=== PATIENT | male | born 1955 | race Hispanic/Latino ===

== ENCOUNTER 2020-07-17 07:17 | Day surgery (SDC) | payer OTHER ==
[2020-07-17] MEDS ORDERED: Ringers Lactate 1,000 ML IV ONE (08:14)
[2020-07-17] MEDS ORDERED: LIDOCAINE 1% MPF 30 ML VIAL ONE (08:33)
[2020-07-17] MEDS ORDERED: propofoL 200 MG/20 ML VIAL IV ONE (08:33)
[2020-07-17] MEDS ORDERED: GLYCOPYRROLATE 0.2 MG/ML SYR ONE (08:33)
--- NOTE | 2020-07-17 08:50 | ENDO RPT ---
[address], [address] COLONOSCOPY PROCEDURE REPORT EXAM DATE: 07/17/2020 PATIENT NAME: Obie Martínez MR #: [id number] BIRTHDATE: 1955 ATTENDING: Jeff Purcell MD STATUS: outpatient STREET CONTRACTOR: Kenn George CST and Antonia Morris RN INDICATIONS: The patient is a 64 yr old Male here for a colonoscopy due to colon cancer screening PROCEDURE PERFORMED: Colonoscopy MEDICATIONS: Per Anesthesia. ESTIMATED BLOOD LOSS: None CONSENT: The patient understands the risks and benefits of the procedure and understands that these risks include, but are not limited to: sedation, allergic reaction, infection, perforation and/or bleeding. Alternative means of evaluation and treatment include, among others: physical exam, x-rays, and/or surgical intervention. The patient elects to proceed with this endoscopic procedure. DESCRIPTION OF PROCEDURE: During intra-op preparation period all mechanical medical equipment was checked for proper function. Hand hygiene and appropriate measures for infection prevention was taken. Procedure, possible complications, alternatives including, but not limited to possibility of bleeding, perforation, tear, infection, sepsis, need for surgery, need for blood transfusion, were explained to the patient. After the risks, benefits and alternatives of the procedure were thoroughly explained, Informed consent was verified, confirmed and timeout was successfully executed by the treatment team. The patient was placed in the left lateral position. A digital rectal exam was performed and revealed external hemorrhoids. After appropriate level of anesthesia, the scope was passed. The EC-[id number] ([id number]) endoscope was introduced through the anus and advanced to the cecum, which was identified by transillumination from the light source, the appendix, and the ileocecal valve. The quality of the prep was fair. The instrument was then slowly withdrawn as the colon was fully examined. Scope withdrawal time was . COLON FINDINGS: Diverticula was found in the descending colon. The opening was medium sized. Retroflexed views revealed no abnormalities and Retroflexed views revealed small hemorrhoids. The scope was then completely withdrawn from the patient and the procedure terminated. ADVERSE EVENTS: There were no complications. IMPRESSIONS: 1. Diverticula in the descending colon 2. External hemorrhoids 3. Internal hemorrhoids RECOMMENDATIONS: 1. follow-up: office 1 week(s) 2. no seeds in diet RECALL: Return in 5-10 year(s) for Colonoscopy. Jeff Purcell MD eSigned: Jeff Purcell MD 07/17/2020 8:49 AM cc: Mac Mcdonald M.D. CPT CODES: ICD9 CODES: PATIENT NAME: Obie Martínez MR#: [id number]
[2020-07-17 09:54] VITALS: TEMP 98.6
[2020-07-17 09:56] VITALS: BP 125/75; O2SAT 97
== END 2020-07-17 09:18 | disposition home or self-care (01) ==
LOC: OR 07:17
PROVIDERS: ATTEND Surgery
PROC: 0DJD8ZZ Inspection of Lower Intestinal Tract, Via Natural or Artificial Opening Endoscopic (ICD-10-PCS; principal; 2020-07-17 08:30)
DX: R10.30 Lower abdominal pain, unspecified (principal); R19.4 Change in bowel habit; K40.20 Bilateral inguinal hernia, without obstruction or gangrene, not specified as recurrent; K64.4 Residual hemorrhoidal skin tags; K64.8 Other hemorrhoids; K57.90 Diverticulosis of intestine, part unspecified, without perforation or abscess without bleeding; E11.9 Type 2 diabetes mellitus without complications; I10 Essential (primary) hypertension; E78.00 Pure hypercholesterolemia, unspecified; I51.9 Heart disease, unspecified; N40.0 Benign prostatic hyperplasia without lower urinary tract symptoms; Z20.822 Contact with and (suspected) exposure to COVID-19
CPT/HCPCS: 45378; U0003; J2704; J7120

== ENCOUNTER 2020-08-23 06:24 | Day surgery (SDC) | payer OTHER ==
[2020-08-21 15:12] LABS: Absolute Lymphocytes (CBC) 2.6 K/uL (0.7-4.9); Basophils % 0.5 % (0-1.3); Hematocrit 43.7 % (39.6-49.0); Lymphocytes % 25.4 % (15.3-44.8); MPV 10.5 fL (7.6-11.3)
[2020-08-21 15:35] LABS: Potassium 4.3 mmol/L (3.5-5.1)
--- NOTE | 2020-08-21 16:25 | RAD REPORT ---
EXAM DESCRIPTION: RAD - Chest Pa And Lat (2 Views) - 08/21/2020 3:14 pm CLINICAL HISTORY: preop, pending hernia surgery COMPARISON: Two chest June 2012 TECHNIQUE: Frontal and lateral views of the chest were obtained. FINDINGS: The lungs are clear of a focal process. No significant failure or volume overload seen. I nterstitial markings are prominent and have progressed slightly from comparison. In the absence of ac [place] symptoms this is likely a progression of chronic interstitial lung disease. Heart size is normal and central vasculature is within normal limits. No pleural effusion or pneumothorax seen. No acute bony finding noted. No aortic abnormality. IMPRESSION: No acute cardiopulmonary process. Increased prominence of the interstitial markings believed to be progression chronic interstitial jennifer g disease rather than an acute process.
[2020-08-23] MEDS ORDERED: Ringers Lactate 1,000 ML IV ONE (07:04)
[2020-08-23] MEDS ORDERED: LIDOCAINE 1% MPF 5 ML VIAL ONE (07:13)
[2020-08-23] MEDS ORDERED: MIDAZOLAM HCL 2 MG/2 ML INJ ONE (07:13)
[2020-08-23] MEDS ORDERED: FENTANYL CITR 250 MCG/5 ML ONE (07:13)
[2020-08-23] MEDS ORDERED: propofoL 200 MG/20 ML VIAL IV ONE (07:13)
[2020-08-23] MEDS ORDERED: dexAMETHasone 10 MG/ML VIAL ONE (07:13)
[2020-08-23] MEDS ORDERED: ROCURONIUM 50 MG/5 ML VIAL IV ONE (07:14)
[2020-08-23] MEDS: CEFAZOLIN/SWI 1gm 1 GM/10 ML SYR ONE ×2 (07:42→07:50)
[2020-08-23] MEDS ORDERED: Phenylephrine HCl 10 MG/ML 1 ML VIAL ONE (08:17)
--- NOTE | 2020-08-23 08:29 | P.BOP ---
Preoperative diagnosis: bilateral tender inguinal hernias Postoperative diagnosis: same Primary procedure: 1. Laparoscopic repair of Right inguinal hernia with mesh Secondary procedure: 2. Laparoscopic repair of left inguinal hernia with mesh Puller Out: ASH LEWIS (WELDER REPAIR) Estimated blood loss: <10cc Specimen: none Findings: as above Anesthesia: General Complications: None Implants: 3D mesh right and left Transferred to: Recovery Room Condition: Good
[2020-08-23] MEDS ORDERED: GLYCOPYRROLATE 0.2 MG/ML SYR ONE (08:44)
[2020-08-23] MEDS ORDERED: KETOROLAC 30 MG/ML INJ ONE (08:44)
[2020-08-23] MEDS ORDERED: NEOSTIGMINE 1 MG/ML -5 ML ONE (08:45)
[2020-08-23 09:11] VITALS: O2SAT 97
[2020-08-23] MEDS ORDERED: ONDANSETRON 4 MG/2 ML VIAL ONE (09:18)
[2020-08-23] MEDS ORDERED: CODEINE 30MG/APAP 300MG TAB PO ONE (09:50)
[2020-08-23] MEDS ORDERED: CODEINE 30MG/APAP 300MG TAB ONE (10:03)
[2020-08-23 10:05] VITALS: BP 128/67; TEMP 97.2
== END 2020-08-23 10:09 | disposition home or self-care (01) ==
LOC: OR 06:24
PROVIDERS: ATTEND Surgery
PROC: 0YUA4JZ Supplement Bilateral Inguinal Region with Synthetic Substitute, Percutaneous Endoscopic Approach (ICD-10-PCS; principal; 2020-08-23 07:30)
DX: K40.20 Bilateral inguinal hernia, without obstruction or gangrene, not specified as recurrent (principal); E11.9 Type 2 diabetes mellitus without complications; I10 Essential (primary) hypertension; E78.00 Pure hypercholesterolemia, unspecified; I51.9 Heart disease, unspecified; Z20.822 Contact with and (suspected) exposure to COVID-19
CPT/HCPCS: 85025; 80048; 36415; 71046; 49650; U0003; J2704; J2370; J2250; J3010; J1100; J2710; J0690; J7120; J2405

== ENCOUNTER 2021-09-04 09:46 | Emergency (ER) | payer OTHER ==
--- OUTSIDE RECORDS SUMMARY | 2021-09-04 09:50 | XMS REPORT | Continuity of Care Document ---
:1955 Author Organization [facility] t Address [address] [place] [address] Care Team Providers Name Role Phone ANNA EUGENIA MICHELLE Primary Care Physician Unavailable Dmitry Attending Clinician Unavailable JAMIE PATEL Attending Clinician Unavailable MANUEL Attending Clinician Unavailable Manuel CAMPBELL Attending Clinician Jamie Solo Attending Clinician FEDERICO FRANCO Attending Clinician Unavailable Payers Payer Name Policy Type Policy Number Effective Date Expiration Date Ale kumar CATHRYN/[facility] [id number] 2021 MEDICARE SILVER 00:00:00 PPO CSNP Problems Condition Condition Condition Status Onset Resolution Last Treating Co mments Source Name Details Category Date Date Treatment Clinician Date Calculus Calculus Disease Active 2019-03 Overview: Un bertha of kidney of kidney 2-07 Formattin i ty of 00:00: g of this [place] 00 note Medical might be Branch different from the original. Added automatic ally from request for surgery [id number] Epidermoid Epidermoid Disease Active 2019- U nivers cyst cyst 7-22 ity of 00:00: [place] 00 Medical Branch Morbid Morbid Disease Active 2018-03 Univers obesity obesity 0-08 [place]y of with [place] mass index mass index 00 Me dical of of Branch 40.0-49.9 40.0-49.9 Right Right Disease Active 2018-03 Overview: Lonnie duncan ureteral ureteral 0-07 Formattin ity of [place] 00:00: g of this [place] 00 note Medical might be Branch different from the original. Added automatic ally from request for surgery [id number] Allergies, Adverse Reactions, Alerts Allergy Allergy Status Severity Reaction(s) Onset Inactive Treating Comm ents Source Name Type Date Date Clinician NO KNOWN Drug Active Univers ALLERGIE Class ity of S [facility] Social History Social Habit Start Date Stop Date Quantity Comments Source History of Cigar Smoker University o f tobacco use [place] [facility] History SDOH University o f Alcohol Std [place] Medical Drinks Branch History SDOH University o f Alcohol Binge [place] Medic al Branch History SDOH University o f Alcohol Comment [place] Med ical Branch Exposure to 2021-07-24 2021-08-03 Not sure [facility] SARS-CoV-2 00:00:00 15:22:00 [facility] Branch Alcohol intake 2021-08-03 2021-08-03 Ex-drinker University 00:00:00 00:00:00 (finding) [facility] Tobacco use and 2020-02-14 2020-02-14 Never used Universit y of exposure 00:00:00 00:00:00 [facility] History SDOH 2019-09-30 2019-09-30 1 University o f Alcohol Frequency 00:00:00 00:00:00 [facility] [place] Sex Assigned At [birth year] Universit y of 00:00:00 00:00:00 [facility] Smoking Status Start Date Stop Date Source Former smoker 2020-02-14 00:00:00 2020-02-14 00:00:00 Universi ty of [facility] Medications Ordered Filled Start Stop Current Ordering Indication Dosage Frequency Signature Comments Components Source Medication Medication Date Date Medication? Clinician (SIG) Name Name aspirin 81 Yes 81mg Take 81 mg U nivers mg EC 08-03 by mouth ity of tablet 15:30: daily. [address] doxycycline 2021- 202- Yes [id number] 100mg Take 1 Univers monohydrate 08-03 [id number] tablet by ity of 100 mg 00:00: 04:59 mouth 2 [place] tablet 00 :00 (two) Medical times Branch daily for 7 days. potassium 2021-0 Yes [id number] 10mL Take 10 mL Univers citrate-cit 1-25 by mouth ity of suzi acid 00:00: after [place] 1,100-334 00 meals and Medic al mg/5 mL at Branch solution bedtime. finasteride 2021-0 Yes [id number] 5mg Take 1 Univers 5 mg tablet 1-25 tablet by ity of 00:00: mouth [place] 00 daily. Medical Branch tamsulosin 2021-0 Yes .4mg Take 1 Unive rs 0.4 mg 24 1-25 capsule by ity of hr capsule 00:00: mouth at [place] 00 bedtime. Medical Branch lisinopriL- 2021-0 Yes [id number] 1{tbl} Take 1 Univers hydrochloro 1-25 tablet by ity of thiazide 00:00: mouth [place] 20-12.5 mg 00 daily. Medical per tablet Branch potassium 2021-0 Yes [id number] 10mL Take 10 mL Univers citrate-cit 1-25 by mouth ity of suzi acid 00:00: after [place] 1,100-334 00 meals and Medic al mg/5 mL at Branch solution bedtime. finasteride 2021-0 Yes [id number] 5mg Take 1 Univers 5 mg tablet 1-25 tablet by ity of 00:00: mouth [place] 00 daily. Medical Branch tamsulosin 2021-0 Yes .4mg Take 1 Unive rs 0.4 mg 24 1-25 capsule by ity of hr capsule 00:00: mouth at [place] 00 bedtime. Medical Branch lisinopriL- 2021-0 Yes [id number] 1{tbl} Take 1 Univers hydrochloro 1-25 tablet by ity of thiazide 00:00: mouth [place] 20-12.5 mg 00 daily. Medical per tablet Branch potassium 2021-0 Yes [id number] 10mL Take 10 mL Univers citrate-cit 1-25 by mouth ity of suzi acid 00:00: after [place] 1,100-334 00 meals and Medic al mg/5 mL at Branch solution bedtime. finasteride 2021-0 Yes [id number] 5mg Take 1 Univers 5 mg tablet 1-25 tablet by ity of 00:00: mouth [place] 00 daily. Medical Branch tamsulosin 2021-0 Yes .4mg Take 1 Unive rs 0.4 mg 24 1-25 capsule by ity of hr capsule 00:00: mouth at [place] 00 bedtime. Medical Branch lisinopriL- 0 Yes [id number] 1{tbl} Take 1 Univers hydrochloro 1-25 tablet by ity of thiazide 00:00: mouth [place] 20-12.5 mg 00 daily. Medical per tablet Branch doxycycline 2020-03 Yes [id number] 100mg Take 1 Univers monohydrate 1-08 4107 tablet by ity of 100 mg 00:00: mouth 2 [place] tablet 00 (two) Medical times Branch daily. mupirocin 2 2020-03 Yes [id number] Apply to Univers % ointment 1-08 4107 area(s) 3 ity of 00:00: (three) [place] 00 times Medical daily. Branch doxycycline 2020-03 Yes [id number] 100mg Take 1 Univers monohydrate 1-08 4107 tablet by ity of 100 mg 00:00: mouth 2 [place] tablet 00 (two) Medical times [place] daily. mupirocin 2 2020-03 Yes [id number] Apply to Univers % ointment 1-08 4107 area(s) 3 ity of 00:00: (three) [place] 00 times Medical daily. Branch mupirocin 2 2020-03 Yes [id number] Apply to Univers % ointment 1-08 4107 area(s) 3 ity of 00:00: (three) [place] 00 times Medical daily. Branch doxycycline 2020-03- No [id number] 100mg Take 1 Univers monohydrate 1-08 05-27 4107 tablet by it y of 100 mg 00:00: 00:00 mouth 2 [place] tablet 00 :00 (two) Medical times [place] daily. potassium 2020-03- No [id number] 10mL Take 10 mL Univers citrate-cit 0-14 -25 by mouth ity of suzi acid 00:00: 00:00 after [place] 1,100-334 00 :00 meals and Medic al mg/5 mL at [facility] bedtime. potassium 2020-03- No [id number] 10mL Take 10 mL Univers citrate-cit 0-14 -25 by mouth ity of suzi acid 00:00: 00:00 after [place] 1,100-334 00 :00 meals and Medic al mg/5 mL at Branch solution bedtime. tamsulosin 2021- No [id number] .4mg Take 1 Univers 0.4 mg 24 09-12 capsule by ity of hr capsule 00:00: 00:00 mouth at [place] 00 :00 bedtime. Medical Branch tamsulosin 2021- No [id number] .4mg Take 1 Univers 0.4 mg 09-12 capsule by ity of hr capsule 00:00: 00:00 [place] 00 :00 bedtime. [facility] aspirin 81 2019-03 Yes 81mg Take 81 mg U nivers mg EC 2-11 by mouth ity of tablet 14:15: daily. [address] aspirin 81 2019-03 Yes 81mg Take 81 mg U nivers mg EC 2-11 by mouth ity of tablet 14:15: daily. [address] bacitracin 2019-03 Yes [id number] Apply to Univers 500 2-11 affected ity of unit/gram 00:00: area(s) 2 [place] ointment 00 (two) Medical times Branch daily. ibuprofen 2019-03 Yes [id number] 600mg Take 1 U nivers 600 mg 2-11 tablet by ity of tablet 00:00: mouth [place] 00 every 6 Medical (six) Branch hours as needed for Pain (scale 4-6). bacitracin 2019- Yes [id number] Apply to Univers 500 2-11 affected ity of unit/gram 00:00: area(s) 2 [place] ointment 00 (two) Medical times Branch daily. ibuprofen 2019- Yes [id number] 600mg Take 1 U nivers 600 mg 2-11 tablet by ity of tablet 00:00: mouth [place] 00 every 6 Medical (six) Branch hours as needed for Pain (scale 4-6). bacitracin 2020- Yes [id number] Apply to Univers 500 2-11 affected ity of unit/gram 00:00: area(s) 2 [place] ointment 00 (two) Medical times Branch daily. ibuprofen 2019- Yes [id number] 600mg Take 1 U nivers 600 mg 2-11 tablet by ity of tablet 00:00: mouth [place] 00 every 6 Medical (six) Branch hours as needed for Pain (scale 4-6). acetaminoph 2019- Yes [id number] 1{tbl} Take 1 Un bertha en-codeine 1-27 tablet by ity of (TYLENOL-CO 00:00: mouth [place] DEINE #3) 00 every 6 Medical 300-30 mg (six) Branch tablet hours as needed for Pain (scale 4-6). Indication s: acute pain acetaminoph 2019- Yes [id number] 1{tbl} Take 1 Un bertha en-codeine 1-27 tablet by ity of (TYLENOL-CO 00:00: mouth [place] DEINE #3) 00 every 6 Medical 300-30 mg (six) Branch tablet hours as needed for Pain (scale 4-6). Indication s: acute pain acetaminoph 2019- Yes [id number] 1{tbl} Take 1 Un bertha en-codeine 1-27 tablet by ity of (TYLENOL-CO 00:00: mouth [place] DEINE #3) 00 every 6 Medical 300-30 mg (six) Branch tablet hours as needed for Pain (scale 4-6). Indication s: acute pain FINASTERIDE 2019-03- No [id number] TAKE 1 Univers 5 mg tablet 0-23 01-25 TABLET BY it y of 00:00: 00:00 MOUTH [place] 00 :00 EVERY DAY Medical Branch FINASTERIDE 2019-03- No [id number] TAKE 1 Univers 5 mg tablet 0-23 01-25 TABLET BY it y of 00:00: 00:00 MOUTH [place] 00 :00 EVERY DAY Medical Branch meloxicam 2019-0 Yes 7.5mg Take 7.5 Uni vers 7.5 mg 9-28 mg by ity of tablet 00:00: mouth [place] 00 daily. Medical Branch meloxicam 2019-0 Yes 7.5mg Take 7.5 Uni vers 7.5 mg 9-28 mg by ity of tablet 00:00: mouth [place] 00 daily. Medical Branch meloxicam 2020-0 Yes 7.5mg Take 7.5 Uni vers 7.5 mg 9-28 mg by ity of tablet 00:00: mouth [place] 00 daily. Medical Branch ibuprofen 2019-0 Yes [id number] 600mg Take 1 Univers 600 mg 7-30 tablet by ity of tablet 00:00: mouth [place] 00 every 6 Medical (six) Branch hours as needed for Pain (scale 1-3). ibuprofen 2019- Yes [id number] 600mg Take 1 Univers 600 mg 7-30 tablet by ity of tablet 00:00: mouth [place] 00 every 6 Medical (six) Branch hours as needed for Pain (scale 1-3). ibuprofen 2020-0 Yes [id number] 600mg Take 1 Univers 600 mg 7-30 tablet by ity of tablet 00:00: mouth [place] 00 every 6 Medical (six) Branch hours as needed for Pain (scale 1-3). mupirocin 2 2019- Yes [id number] Apply to Univers % ointment 7-22 area(s) 3 ity of 00:00: (three) [place] 00 times Medical daily. Branch mupirocin 2 2019-0 Yes [id number] Apply to Univers % ointment 7-22 area(s) 3 ity of 00:00: (three) [place] 00 times Medical daily. Branch mupirocin 2 2019- Yes [id number] Apply to Univers % ointment 7-22 area(s) 3 ity of 00:00: (three) [place] 00 times Medical daily. Branch Potassium 2021- No [id number] 15meq Take 15 Univers Citrate 15 7-08 01-25 mEq by ity of mEq TbSR 00:00: 00:00 mouth 2 [place] 00 :00 (two) Medical times Branch daily. Potassium 2021- No [id number] 15meq Take 15 Univers Citrate 15 7-08 01-25 mEq by ity of mEq TbSR 00:00: 00:00 mouth 2 [place] 00 :00 (two) Medical times Branch daily. lisinopril- 2018-03- No [id number] 1{tbl} Take 1 Univers hydrochloro 2-03 01-25 tablet by it y of thiazide 00:00: 00:00 mouth [place] 20-12.5 mg 00 :00 daily. Medical per tablet Branch lisinopril- 2018-03- No [id number] 1{tbl} Take 1 Univers hydrochloro 2-03 01-25 tablet by it y of thiazide 00:00: 00:00 mouth [place] 20-12.5 mg 00 :00 daily. Medical per tablet Branch Vital Signs Vital Name Observation Time Observation Value Comments Source Systolic blood 2021-08-03 20:31:00 151 mm[Hg] Univer sity of pressure [facility] Diastolic blood 2021-08-03 20:31:00 91 mm[Hg] Unive rsity of pressure [facility] Heart rate 2021-08-03 20:31:00 88 /min Universi ty of [facility] Oxygen saturation in 2021-08-03 20:31:00 96 /min [facility] Arterial blood by [facility] Pulse oximetry Branch Body height 2021-08-03 20:30:00 165.1 cm Universi ty of [facility] Body weight 2021-08-03 20:30:00 105.552 kg Universi ty of [facility] BMI 2021-08-03 20:30:00 38.72 kg/m2 Universi ty of [facility] Systolic blood 2021-04-03 17:05:00 190 mm[Hg] Univer sity of pressure [facility] Diastolic blood 2021-04-03 17:05:00 78 mm[Hg] Unive rsity of [facility] Heart rate 2021-04-03 17:05:00 90 /min Universi ty of [facility] Body temperature 2021-04-03 17:04:00 36.67 Traci Univ ersity of [facility] Body height 2021-04-03 17:04:00 165.1 cm Universi ty of [facility] Body weight 2021-04-03 17:04:00 109.589 kg Universi ty of [facility] BMI 2021-04-03 17:04:00 40.20 kg/m2 Universi ty [facility] Procedures This patient has no known procedures. Encounters Start End Encounter Admission Attending Care Care Encounter Source Date/Time Date/Time Type Type Clinicians Facility Department ID 2021-05-31 Outpatient [facility] [id number] Common 16:32:01 [facility] 2021-05-14 Outpatient Dmitry STMICKY [facility] [id number] Common 10:45:04 Ofe [facility] 2021-04-04 Outpatient Ofe Leon [facility] [id number] Common 11:59:56 [id number] [facility] 2021-04-04 Outpatient Ofe Leon [facility] [id number] Common 11:49:40 [id number] [facility] 2022-01-01 2022-01-01 [facility] [id number] Univers 11:30:00 11:30:00 KAUSHIK [id number] [facility] [place] [facility] 2021-08-03 2021-08-03 [facility] [id number] Univers 15:20:00 15:43:58 [facility] o f [facility] 2021-08-03 2021-08-03 [facility] [id number] Univers 15:20:00 15:43:58 Care [facility] [id number] i sharon pringle [place] [id number] [place] as LAURA?BLEA [id number] Me [address] MEDICAL OFFICE BUILDING 2021-08-03 2021-08-03 Outpatient R [facility] [id number] Univers 15:20:00 15:20:00 [id number] [facility] [place] [facility] 2021-06-21 2021-06-21 ambulatory STLMLC STLMLC [id number] Common 00:00:00 00:00:00 [facility] 2021-06-14 2021-06-14 ambulatory STLMLC STLMLC [id number] Common 00:00:00 00:00:00 [facility] 2021-06-07 2021-06-07 ambulatory STLMLC STLMLC [id number] Common 00:00:00 00:00:00 [facility] 2021-05-29 2021-05-29 ambulatory STLMLC STLMLC [id number] Common 00:00:00 00:00:00 [facility] 2021-05-24 2021-05-24 ambulatory STLMLC STLMLC [id number] Common 00:00:00 00:00:00 [facility] 2021-05-14 2021-05-14 ambulatory STLMLC STLMLC [id number] Common 00:00:00 00:00:00 [facility] 2021-04-03 2021-04-03 Office LUIS FERNANDO Patel [id number] Univers 11:30:00 12:00:00 Visit Kaushik Andersen [facility] [id number] ity [facility] [id number] Nicki duncan [id number] [address] 2021-04-03 2021-04-03 [facility] [id number] Univers 11:30:00 11:30:[address] [facility] 2021-03-20 2021-03-20 [facility] [id number] Univers 13:30:00 13:30:[address] [facility] 2020-06-26 2020-06-26 Outpatient STLMLC STLMLC [id number] Common 00:00:00 00:00:00 [facility] 2020-03-22 2020-03-22 [facility] [id number] Univers 13:45:00 14:16:27 OLIVIA [facility] [place] [facility] 2020-01-25 2020-01-25 Outpatient STLMLC STLMLC [id number] Common 00:00:00 00:00:00 [facility] 2020-01-18 2020-01-18 Outpatient STLMLC STLMLC [id number] Common 00:00:00 00:00:00 [facility] 2020-01-11 2020-01-11 Outpatient STLMLC STLMLC [id number] Common 00:00:00 00:00:00 [facility] 2019-12-17 2019-12-17 Outpatient STLMLC STLMLC [id number] Common 00:00:00 00:00:00 [facility] 2019-12-07 2019-12-07 Outpatient STLMLC STLMLC [id number] Common 00:00:00 00:00:00 [facility] 2019-12-06 2019-12-06 Outpatient STLMLC STLMLC [id number] Common 00:00:00 00:00:00 [facility] Results This patient has no known results.
[2021-09-04] MEDS ORDERED: HYDROCODONE/APAP 10/325 TAB ONE (11:52)
--- NOTE | 2021-09-04 12:24 | RAD REPORT ---
EXAM DESCRIPTION: US - Extrem Venous W Compress Fan - 09/04/2021 12:11 pm CLINICAL HISTORY: lower extremity swelling COMPARISON: None. TECHNIQUE: Real-time sonographic evaluation of the bilateral lower extremity common femoral, superfi cial femoral, popliteal and posterior tibial veins was performed. FINDINGS: Normal compressibility, flow augmentation, phasic flow and spontaneous flow are identified in the left and right lower extremity common femoral, superficial femoral, popliteal and posterior t ibial veins. No intraluminal filling defects seen. IMPRESSION: No DVT in either lower extremity.
--- NOTE | 2021-09-04 13:25 | RAD REPORT ---
EXAM DESCRIPTION: RAD - Knee Right 3 View - 09/04/2021 1:14 pm CLINICAL HISTORY: PAIN COMPARISON: No comparisons FINDINGS: Moderate to severe osteoarthritis of the medial joint compartment is noted with near bone- on-bone. No fracture or dislocation. Small suprapatellar joint effusion.
--- NOTE | 2021-09-04 13:26 | RAD REPORT ---
EXAM DESCRIPTION: RAD - Knee Left 3 View - 09/04/2021 1:14 pm CLINICAL HISTORY: PAIN COMPARISON: No comparisons FINDINGS: Moderate tricompartmental osteoarthritis is seen, greatest involving the medial compartmen t. Small suprapatellar joint effusion. No fracture or dislocation. No aggressive bone lesion. IMPRESSION: Moderate medial compartment osteoarthritis.
--- NOTE | 2021-09-04 13:29 | ER ---
Nurse's Notes [facility] Name: Obie Martínez Age: 65 yrs Sex: Male : 1955 Arrival Date: 09/04/2021 Time: 09:50 Bed 10 Private MD: Diagnosis: Unspecified osteoarthritis, unspecified site-right and left knee Presentation: 09/04 10:25 Chief complaint: Patient states: Bilateral knee pain x 5 years that has gotten worse ss over the past few days. Pt sees Dr. Ramon for his knee pain and gives him injections that help for a few days and was also told that he knee bilateral knee replacement. Coronavirus screen: Client denies travel out of the [place] in the last 14 days. Ebola Screen: Patient denies exposure to infectious person. Patient denies travel to an Ebola-affected area in the 21 days before illness onset. Initial Sepsis Screen: Does the patient meet any 2 criteria? No. Patient's initial sepsis screen is negative. Does the patient have a suspected source of infection? No. Patient's initial sepsis screen is negative. Risk Assessment: Do you want to hurt yourself or someone else? Patient reports no desire to harm self or others. Onset of symptoms is unknown. 10:25 Method Of Arrival: Ambulatory ss 10:25 Acuity: SUKH 5 ss Historical: - Allergies: 10:27 No Known Allergies; ss - PMHx: 10:27 Hypertensive disorder; enlarged prostate; Kidney stone; ss - Immunization history:: Adult Immunizations up to date. - Social history:: Smoking status: Patient denies any tobacco usage or history of. Screenin:25 Abuse screen: Denies threats or abuse. Denies injuries from another. Nutritional ss screening: No deficits noted. Tuberculosis screening: Never had TB. Fall Risk None identified. Assessment: 10:25 General: Appears in no apparent distress. comfortable, Behavior is calm, cooperative, ss Denies fever, feeling ill, fatigue, chills. Pain: Complains of pain in Bilateral knee pain Pain currently is 10 out of 10 on a pain scale. Quality of pain is described as aching. Neuro: Sandoval Agitation-Sedation Scale (RASS): 0 - Alert and Calm Level of Consciousness is awake, alert, obeys commands, Oriented to person, place, time, situation. Cardiovascular: Pulses are palpable in right posterior tibial artery and left posterior tibial artery. Respiratory: Airway is patent Respiratory effort is even, unlabored, Respiratory pattern is regular, symmetrical, Denies cough, shortness of breath. Derm: Skin is pink, warm \T\ dry. normal. 11:30 Reassessment: Patient appears in no apparent distress at this time. Patient and/or ss family updated on plan of care and expected duration. Pain level reassessed. Patient is alert, oriented x 3, equal unlabored respirations, skin warm/dry/pink. 13:59 Reassessment: Patient appears in no apparent distress at this time. Pt up for ss discharge. HYUN Crain states that he still needs to speak with the patient prior to discharge. Vital Signs: 10:25 BP 148 / 81; Pulse 68; Resp 16; Temp 97.8(TE); Pulse Ox 100% on R/A; Weight 108.86 kg; ss Height 5 ft. 5 in. (165.10 cm); Pain 10/10; 10:25 Body Mass Index 39.94 (108.86 kg, 165.10 cm) ss ED Course: 09:50 Patient arrived in ED. rg4 10:25 Patient has correct armband on for positive identification. ss 10:27 Triage completed. ss 10:27 Arm band placed on right wrist. ss 10:30 Paras Phillips NP is PHCP. pm1 10:30 Warren Nelson MD is Attending Physician. pm1 11:37 Natalya Ochoa, JAMA is Primary Nurse. ss 12:11 Extrem Venous W Compression Fan US In Process Unspecified. EDMS 13:16 Knee Left 3 View XRAY In Process Unspecified. EDMS 13:16 Knee Right 3 View XRAY In Process Unspecified. EDMS 13:28 Alex Ramon MD is Referral Physician. pm1 14:44 No provider procedures requiring assistance completed. Patient did not have IV access ss during this emergency room visit. Administered Medications: 11:50 Drug: Hepler (HYDROcodone-acetaminophen) 10 mg-325 mg 1 tabs Route: PO; ss 13:58 Follow up: Response: No adverse reaction ss Medication: 10:25 VIS not applicable for this client. ss Outcome: 13:28 Discharge ordered by . pm1 14:44 Discharged to home ambulatory. ss 14:44 Condition: good 14:44 Discharge instructions given to patient, family, Instructed on discharge instructions, follow up and referral plans. medication usage, Demonstrated understanding of instructions, follow-up care, medications, Prescriptions given X 1. 14:46 Patient left the ED. Signatures: Dispatcher [employer] EDNatalya Cho RN RN Paras Lerner, ETCH OPERATOR [employer]IC[employer]AFERS ETCH OPERATOR [employer] pm1 Thea Ferreira rg4
--- NOTE | 2021-09-04 13:29 | EDPHYS ---
Physician Documentation [facility] Name: Obie Martínez Age: 65 yrs Sex: Male : 1955 Arrival Date: 09/04/2021 Time: 09:50 Bed 10 Private MD: ED Physician Warren Nelson HPI: 09/04 11:50 This 65 yrs old Male presents to ER via Ambulatory with complaints of Knee pm1 Pain. 11:50 The patient presents with pain, that is chronic. The complaints affect the right knee pm1 and left knee. Context: the patient can fully bear weight, the patient is able to ambulate. Onset: The symptoms/episode began/occurred and became worse 5 day(s) ago. Modifying factors: The symptoms are alleviated by elevating leg, the symptoms are aggravated by movement, weight bearing, bending knee. Associated signs and symptoms: Pertinent positives: calf tenderness, swelling, Pertinent negatives fever, numbness, tingling. Treatment prior to arrival includes: no previous treatment. Severity of symptoms: in the emergency department the symptoms are actually worse. The patient has not experienced similar symptoms in the past. The patient has not recently seen a physician. Historical: - Allergies: 10:27 No Known Allergies; ss - PMHx: 10:27 Hypertensive disorder; enlarged prostate; Kidney stone; ss - Immunization history:: Adult Immunizations up to date. - Social history:: Smoking status: Patient denies any tobacco usage or history of. ROS: 11:50 Constitutional: Negative for fever, chills, and weight loss, Cardiovascular: Negative pm1 for chest pain, palpitations, and edema, Respiratory: Negative for shortness of breath, cough, wheezing, and pleuritic chest pain. 11:50 Skin: Negative for injury, rash, and discoloration, Neuro: Negative for headache, weakness, numbness, tingling, and seizure. 11:50 MS/extremity: Positive for pain, swelling, tenderness, of the right calf and left calf and right knee and left knee. 11:50 All other systems are negative. Exam: 11:50 Constitutional: This is a well developed, well nourished patient who is awake, alert, pm1 and in no acute distress. Head/Face: Normocephalic, atraumatic. 11:50 Skin: Warm, dry with normal turgor. Normal color with no rashes, no lesions, and no evidence of cellulitis. 11:50 Cardiovascular: Exam negative for acute changes, Rate: normal, Rhythm: regular, Pulses: no pulse deficits are appreciated, Edema: is not appreciated. 11:50 Respiratory: Exam negative for acute changes, respiratory distress, shortness of breath, Breath sounds: are clear throughout. 11:50 Abdomen/GI: Exam negative for acute changes, Inspection: abdomen appears normal, Palpation: abdomen is soft and non-tender, in all quadrants. 11:50 Musculoskeletal/extremity: Extremities: grossly normal except: noted in the right knee and left knee: swelling, tenderness, There is no evidence of decreased ROM, deformity, DVT Exam: no swelling, no tenderness, no erythema. 11:50 Neuro: Exam negative for acute changes, Orientation: is normal, Mentation: is normal, Motor: is normal, moves all fours. Vital Signs: 10:25 BP 148 / 81; Pulse 68; Resp 16; Temp 97.8(TE); Pulse Ox 100% on R/A; Weight 108.86 kg; ss Height 5 ft. 5 in. (165.10 cm); Pain 10/10; 10:25 Body Mass Index 39.94 (108.86 kg, 165.10 cm) ss MDM: 10:33 Patient medically screened. pm1 13:27 Data reviewed: vital signs. Data interpreted: Pulse oximetry: on room air is 100 %. pm1 Interpretation: normal. Counseling: I had a detailed discussion with the patient and/or guardian regarding: the historical points, exam findings, and any diagnostic results supporting the discharge/admit diagnosis, radiology results, the need for outpatient follow up, to return to the emergency department if symptoms worsen or persist or if there are any questions or concerns that arise at home. 09/04 11:08 Order name: Knee Left 3 View XRAY; Complete Time: 13:26 pm1 09/04 11:08 Order name: Knee Right 3 View XRAY; Complete Time: 13:26 pm1 09/04 11:08 Order name: Extrem Venous W Compression Fan US; Complete Time: 13:09 pm1 Administered Medications: 11:50 Drug: Salol (HYDROcodone-acetaminophen) 10 mg-325 mg 1 tabs Route: PO; ss 13:58 Follow up: Response: No adverse reaction ss Disposition: 18:02 Co-signature as Attending Physician, Warren Nelson MD. rn Disposition Summary: 09/04/21 13:28 Discharge Ordered Location: Home pm1 Problem: new pm1 Symptoms: have improved pm1 Condition: Stable pm1 Diagnosis - Unspecified osteoarthritis, unspecified site - right and left knee pm1 Followup: pm1 - With: Emergency Department - When: As needed - Reason: Worsening of condition Followup: pm1 - With: Private Physician - When: 2 - 3 days - Reason: Recheck today's complaints, Continuance of care, Re-evaluation by your physician Followup: pm1 - With: Alex Ramon MD - When: 2 - 3 days - Reason: Recheck today's complaints, Continuance of care, Re-evaluation by your physician Discharge Instructions: - Discharge Summary Sheet pm1 - Arthritis pm1 - Osteoarthritis pm1 Forms: - Medication Reconciliation Form pm1 - Thank You Letter pm1 - Antibiotic Education pm1 - Prescription Opioid Use pm1 Prescriptions: - Tramadol 50 mg Oral Tablet - take 1 tablet by ORAL route every 8 hours as needed; 12 tablet; Refills: 0, pm1 Product Selection Permitted Signatures: Dispatcher [employer] EDWarren Crane MD MD rn Natalya Ochoa RN RN Paras Lerner NP DISPLAY ARTIST pm1
[2021-09-04 15:43] VITALS: BP 148/81; TEMP 97.8; O2SAT 100
== END 2021-09-04 14:46 | disposition home or self-care (01) ==
LOC: ER 09:46
DX: M17.0 Bilateral primary osteoarthritis of knee (principal); I10 Essential (primary) hypertension
CPT/HCPCS: 93970

== ENCOUNTER 2022-02-20 05:50 | Observation (INO) | payer OTHER ==
[2022-02-11 12:42] LABS: Absolute Lymphocytes (CBC) 2.1 K/uL (0.7-4.9); Hematocrit 44.7 % (39.6-49.0); Lymphocytes % 30.8 % (15.3-44.8); MCV 88.1 fL (80-100); MPV 10.4 fL (7.6-11.3); Protime INR 0.92; RBC Red Blood Cell Count 5.08 M/uL (4.33-5.43)
[2022-02-11 12:47] LABS: Potassium 3.8 mmol/L (3.5-5.1)
--- NOTE | 2022-02-11 13:09 | RAD REPORT ---
EXAM DESCRIPTION: RAD - Chest Pa And Lat (2 Views) - 02/11/2022 12:06 pm CLINICAL HISTORY: Pre op pending knee arthroplasty COMPARISON: Two view chest 08/21/2020 TECHNIQUE: Frontal and lateral views of the chest were obtained. FINDINGS: The lungs are clear of a peripheral mass, consolidation failure finding. Interstitial celia ings are prominent but not clearly different from the 2020 study. No hilar mass or lymphadenopathy identifiable. Heart size is normal and central vasculature is with in normal limits. No pleural effusion or pneumothorax seen. No acute bony finding noted. No aortic abnormality. IMPRESSION: No acute cardiopulmonary process. Above detailed findings are stable from prior imaging.
--- NOTE | 2022-02-11 13:43 | EKG ---
Test Date: 2022-02-11 Test Time: 11:12:23 Oncology Nurse Navigator: CONSTANZA MEASUREMENT RESULTS: Intervals: Rate: 63 MD: 190 QRSD: 144 QT: 426 QTc: 435 [place]: P: 74 MD: 190 QRS: 85 T: 65 INTERPRETIVE STATEMENTS: Normal sinus rhythm Right bundle branch block Abnormal ECG Compared to ECG 06/26/2012 20:15:44 Right bundle-branch block now present Intraventricular conduction delay no longer present Electronically Signed On 02-11-22 13:43:00 COMMERCIAL FOOD INSTRUCTOR by Ross Adams
[2022-02-20] MEDS ORDERED: Ringers Lactate 1,000 ML IV ONE ×2 (06:16→09:17)
[2022-02-20] MEDS ORDERED: CEFAZOLIN SODIUM 2 GM/VIAL ONE (06:16)
[2022-02-20 06:25] LABS: SARS-CoV-2 Antigen Rapid Res Negative (Negative)
[2022-02-20] MEDS ORDERED: FENTANYL CITR 100 MCG/2 ML ONE (07:01)
[2022-02-20] MEDS ORDERED: LIDOCAINE 1% MPF 5 ML VIAL ONE (07:01)
[2022-02-20] MEDS ORDERED: dexAMETHasone 4 MG/ML VIAL ONE (07:02)
[2022-02-20] MEDS ORDERED: MIDAZOLAM HCL 2 MG/2 ML INJ ONE (07:02)
[2022-02-20] MEDS ORDERED: EPINEPHRINE/PF 1 MG/ML AMP ONE (07:06)
[2022-02-20] MEDS ORDERED: dexAMETHasone 10 MG/ML VIAL ONE ×2 (07:06→07:59)
[2022-02-20] MEDS ORDERED: BUPIVACAINE 0.25% PF 30 ML VIAL ONE (07:06)
[2022-02-20] MEDS ORDERED: HYDROMORPHONE HCL 1 MG/ML INJ ONE (07:50)
[2022-02-20] MEDS ORDERED: KETAMINE HCL 500 MG/5 ML VIAL ONE (07:59)
[2022-02-20] MEDS ORDERED: KETOROLAC 30 MG/ML INJ ONE (07:59)
[2022-02-20] MEDS ORDERED: LIDOCAINE 2% MPF 5 ML VIAL ONE (07:59)
[2022-02-20] MEDS ORDERED: propofoL 200 MG/20 ML VIAL IV ONE (07:59)
[2022-02-20] MEDS ORDERED: ONDANSETRON 4 MG/2 ML VIAL ONE (08:00)
[2022-02-20] MEDS ORDERED: TRANEXAMIC ACID 1,000 MG/10 ML VIAL IV ONE (08:28)
[2022-02-20] MEDS ORDERED: LABETALOL 20 MG/4ML SYRINGE IV ONE (10:38)
--- NOTE | 2022-02-20 11:11 | P.BOP ---
Preoperative diagnosis: left knee osteoarthritis Postoperative diagnosis: same Primary procedure: left total knee arthroplasty Embroidery Patternmaker: NONE,NONE Estimated blood loss: 50 cc Specimen: left knee bone remnants Findings: see dictation Anesthesia: General Complications: None Implants: [employer] Samm Persona 10 CR femur, G tibia w/ stem, 10 CR poly, 35 patella Fluids & blood products: per anesthesia record; TT: 93 mins @ 300 mmHg Transferred to: Recovery Room Condition: Good
[2022-02-20] MEDS ORDERED: ONDANSETRON 4 MG/2 ML VIAL IV PRN (11:12)
[2022-02-20] MEDS ORDERED: MORPHINE 2 MG/ML SYR IV PRN (11:12)
[2022-02-20] MEDS ORDERED: DOCUSATE NA 100 MG CAP PO PRN (11:12)
[2022-02-20] MEDS ORDERED: ACETAMINOPHEN 325 MG TABLET PO PRN (11:12)
[2022-02-20] MEDS ORDERED: TRAMADOL HCL 50 MG TAB PO PRN (11:15)
--- OUTSIDE RECORDS SUMMARY | 2022-02-20 11:41 | XMS REPORT | Continuity of Care Document ---
:1955 Author Organization [facility] t Address [address] [place] [address] Care Team Providers Name Role Phone Letty Willis Primary Care Physician [phone] Ofe Andres Attending Clinician Unavailable GORDO QUINTANA Attending Clinician Unavailable ALLYN WEBBER Attending Clinician Unavailable Gordo Quintana MD Attending Clinician [phone] ALMA ROSA BUCHANAN Attending Clinician Unavailable Alma Rosa Buchanan MD Attending Clinician Doctor Unassigned, [place] Attending Clinician Unavailable Allyn Solo Attending Clinician DYLAN JACKSON Attending Clinician Unavailable Dylan Camarena Attending Clinician DARRIUS BOSWELL Attending Clinician Unavailable Visit, [facility] Dermatology Nurse Attending Clinician Unavailable Madison Chiu MD Attending Clinician MADISON CHIU Attending Clinician Unavailable Michael Drake MD Attending Clinician [phone] Lexi Boswell MD, Darrius Abad Attending Clinician [facility]-Lab Attending Clinician Unavailable Salomón Mckeon MD Attending Clinician SALOMÓN MCKEON Attending Clinician Unavailable CAMILLA CHÁVEZ Attending Clinician Unavailable Camilla Chávez MD Attending Clinician Provider, [facility] Attending Clinician Unavailable John Pleitez Attending Clinician JOHN GALVAN Attending Clinician Unavailable Lab, [facility] Attending Clinician Unavailable Claribel Woods Attending Clinician CLARIBEL PARKINSON Attending Clinician Unavailable CHRISTIAN DUMONT Attending Clinician Unavailable Shyam LEE, Naila Carson Attending Clinician BECKY DOUGHERTY Attending Clinician Unavailable GORDO QUINTANA Admitting Clinician Unavailable SALOMÓN MCKEON Admitting Clinician Unavailable CHRISTIAN DUMONT Admitting Clinician Unavailable BECKY DOUGHERTY Admitting Clinician Unavailable Payers Payer Name Policy Type Policy Number Effective Date Expiration Date [facility] [id number] 2018 MEDICARE SILVER 00:00:00 Problems Condition Condition Condition Status Onset Resolution Last Treating Co mments Source Name Details Category Date Date Treatment Clinician Date Calculus Calculus Disease Active 2019-03 Overview: Un bertha of kidney of kidney 2-07 Formattin i ty of 00:00: g of this [place] note Medical might be Branch different from the original. Added automatic ally from request for surgery [id number] Epidermoid Epidermoid Disease Active U nivers cyst cyst 7-22 ity of 00:00: [place] 00 Medical Branch Morbid Morbid Disease Active 2018-03 Univers obesity obesity 0-08 [place]y of [place] mass index 00 Me dical of of Branch 40.0-49.9 40.0-49.9 Right Right Disease Active 2018-03 Overview: Univer s ureteral ureteral 0-07 Formattin ity of stone stone 00:00: g of this note Medical might be Branch different from the original. Added automatic ally from request for surgery [id number] Arthritis Problem Co mmon [id number] of left Spirit knee - [facility] [id number] Primary Problem Comm on osteoarthr Spirit itis of - [facility] right knee [facility] [id number] Primary Problem Comm on osteoarthr Spirit is of - [facility] left knee [facility] Allergies, Adverse Reactions, Alerts Allergy Allergy Status Severity Reaction(s) Onset Inactive Treating Comm ents Source Name Type Date Date Clinician NO KNOWN Drug Active Univers ALLERGIE Class ity of [facility] Social History Social Habit Start Date Stop Date Quantity Comments Source History SDOH University o f Alcohol Std [place] Medical Drinks Branch History SDOH University o f Alcohol Binge [place] Medic al Branch History [facility] University o f Alcohol Comment [place] Med ical Branch History of [facility] - Tobacco Use [facility] Sex Assigned At Common Sp cady - [facility] Exposure to 2021-12-17 2021-12-27 Not sure [facility] SARS-CoV-2 00:00:00 10:41:00 [facility] (event) Branch Alcohol intake 2021-12-27 2021-12-27 Ex-drinker University of 00:00:00 00:00:00 (finding) [facility] Tobacco use and 2021-11-28 2021-11-28 Smokeless tobacco Un iversity of exposure 00:00:00 00:00:00 non-user [facility] History SDAK 2019-09-30 2019-09-30 1 University o f Alcohol [facility]:00[facility] [place] Smoking Status Start Date Stop Date Source Never Smoker [facility] Ex-smoker 2021-11-28 00:00:00 2021-11-28 00:00:00 [facility] Medications Ordered Filled Start Stop Current Ordering Indication Dosage Frequency Signature Comments Components Source Medication Medication Date Date Medication? Clinician (SIG) Name Name Xarelto 10 Xarelto 10 2021-03 No 1{table QD Xarelto 10 MG MG 2-12 t} MG 00:00: 00 HYDROcodone HYDROcodone 2021-03 No 1{table HYDROcodon -Acetaminop -Acetaminop 2-12 t_as_ne e-Acetamin hen 7.5-325 hen 7.5-325 00:00: eded} ophen MG MG 00 7.5-325 MG ROSUVASTATI 2021-03 No N CALCIUM 5 1-21 MG TABS 00:00: 00 finasteride 2021-03 Yes [id number] 5mg Take 1 Univers 5 mg tablet 0-20 tablet by ity of 00:00: mouth in [place] the morning. Branch tamsulosin 2021-03 Yes [id number] .4mg Take 1 Univers 0.4 mg 24 0-20 capsule by ity of hr capsule 00:00: mouth at [place] 00 bedtime. Medical Branch finasteride 2021-03 Yes [id number] 5mg Take 1 Univers 5 mg tablet 0-20 tablet by ity of 00:00: mouth in [place] the morning. Branch tamsulosin 2021-03 Yes [id number] .4mg Take 1 Univers 0.4 mg 24 0-20 capsule by ity of hr capsule 00:00: mouth at [place] 00 bedtime. [facility] finasteride 2021-03 Yes [id number] 5mg Take 1 Univers 5 mg tablet 0-20 tablet by ity of 00:00: mouth in [place] the morning. Branch tamsulosin 2021-03 Yes [id number] .4mg Take 1 Univers 0.4 mg 24 0-20 capsule by ity of hr capsule 00:00: mouth at [place] 00 bedtime. [facility] Branch finasteride 2021-03 Yes [id number] 5mg Take 1 Univers 5 mg tablet 0-20 tablet by ity of 00:00: mouth in [place] the morning. Branch tamsulosin 2021-03 Yes [id number] .4mg Take 1 Univers 0.4 mg 24 0-20 capsule by ity of hr capsule 00:00: mouth at [place] 00 bedtime. [facility] Branch FINASTERIDE No 5 MG TABS 12-04 00:00: 00 TAKE 1 2021-0 No TABLET BY 9- MOUTH TWICE 00:00: A DAY 00 TAKE 1 2021-0 No TABLET BY 9-21 MOUTH TWICE 00:00: A DAY 00 TAMSULOSIN 2021-0 No HYDROCHLORI 8-01 DE 0.4 MG 00:00: CAPS 00 TAMSULOSIN 2021-0 No HYDROCHLORI 8-01 DE 0.4 MG 00:00: CAPS 00 &lt 2022-0 No 4 8-01 00:00: 00 finasteride 2021-0 Yes [id number] 5mg Take 1 Univers 5 mg tablet 7-14 tablet by ity of 00:00: mouth in [place] 00 the Medical morning. Branch finasteride 2021-0 Yes [id number] 5mg Take 1 Univers 5 mg tablet 7-14 tablet by ity of 00:00: mouth in [place] 00 the Medical morning. Branch finasteride 2021-0 Yes [id number] 5mg Take 1 Univers 5 mg tablet 7-14 tablet by ity of 00:00: mouth in [place] 00 the Medical morning. Branch finasteride 2021-0 Yes [id number] 5mg Take 1 Univers 5 mg tablet 7-14 tablet by ity of 00:00: mouth in [place] 00 the Medical morning. Branch finasteride 2021-0 Yes [id number] 5mg Take 1 Univers 5 mg tablet 7-14 tablet by ity of 00:00: mouth in [place] 00 the Medical morning. Branch finasteride 2021-0 Yes [id number] 5mg Take 1 Univers 5 mg tablet 7-14 tablet by ity of 00:00: mouth in [place] 00 the Medical morning. Branch finasteride 2021-0 Yes [id number] 5mg Take 1 Univers 5 mg tablet 7-14 tablet by ity of 00:00: mouth in [place] 00 the Medical morning. Branch finasteride 2021-0 Yes [id number] 5mg Take 1 Univers 5 mg tablet 7-14 tablet by ity of 00:00: mouth in [place] 00 the Medical morning. Branch finasteride 2021-0 Yes [id number] 5mg Take 1 Univers 5 mg tablet 7-14 tablet by ity of 00:00: mouth in [place] 00 the Medical morning. Branch finasteride 2021-0 2022- No [id number] 5mg Take 1 Univers 5 mg tablet 7-14 10-20 tablet by it y of 00:00: 00:00 mouth in [place] 00 :00 the Medical morning. Branch finasteride 2-0 2022- No [id number] 5mg Take 1 Univers 5 mg tablet 7-14 10-20 tablet by it y of 00:00: 00:00 mouth in [place] 00 :00 the Medical morning. Branch finasteride 2-0 2022- No [id number] 5mg Take 1 Univers 5 mg tablet 7-14 10-20 tablet by it y of 00:00: 00:00 mouth in [place] 00 :00 the Medical morning. Branch finasteride 2021- No [id number] 5mg Take 1 Univers 5 mg tablet 7-14 10-20 tablet by it y of 00:00: 00:00 mouth in [place] 00 :00 the Medical morning. Branch aspirin 81 2021-0 Yes 81mg Take 81 mg U nivers mg EC 5-27 by mouth ity of tablet 15:30: daily. [address] aspirin 81 2021-0 Yes 81mg Take 81 mg U nivers mg EC 5-27 by mouth ity of tablet 15:30: daily. [address] aspirin 81 2021-0 Yes 81mg Take 81 mg U nivers mg EC 5-27 by mouth ity of tablet 15:30: daily. [address] aspirin 81 2021-0 Yes 81mg Take 81 mg U nivers mg EC 5-27 by mouth ity of tablet 15:30: daily. [address] aspirin 81 2021-0 Yes 81mg Take 81 mg U nivers mg EC 5-27 by mouth ity of tablet 15:30: daily. [address] aspirin 81 2021-0 Yes 81mg Take 81 mg U nivers mg EC 5-27 by mouth ity of tablet 15:30: daily. [address] aspirin 81 2021-0 Yes 81mg Take 81 mg U nivers mg EC 5-27 by mouth ity of tablet 15:30: daily. [address] aspirin 81 2021-0 Yes 81mg Take 81 mg U nivers mg EC 5-27 by mouth ity of tablet 15:30: daily. [address] aspirin 81 2021-0 Yes 81mg Take 81 mg U nivers mg EC 5-27 by mouth ity of tablet 15:30: daily. [address] aspirin 81 2021-0 Yes 81mg Take 81 mg U nivers mg EC 5-27 by mouth ity of tablet 15:30: daily. [address] aspirin 81 2021-0 Yes 81mg Take 81 mg U nivers mg EC 5-27 by mouth ity of tablet 15:30: daily. [address] aspirin 81 2021-0 Yes 81mg Take 81 mg U nivers mg EC 5-27 by mouth ity of tablet 15:30: daily. [address] aspirin 81 2021-0 Yes 81mg Take 81 mg U nivers mg EC - by mouth ity of tablet 15:30: daily. [address] aspirin 81 2021-0 Yes 81mg Take 81 mg U nivers mg EC 08-03 by mouth ity of tablet 15:30: daily. [address] doxycycline 2021-0 202- No [id number] 100mg Take 1 Univers monohydrate 08-03 [id number] tablet by ity of 100 mg 00:00: 04:59 mouth 2 [place] tablet 00 :00 (two) Medical times [place] daily for 7 days. [place] 20 Hy[place]gan 20 2021-0 No 20mg C ommon mg mg - Spirit 00:00: - [facility] Hyalgan 20 [place] 20 2021-0 No 20mg C ommon mg mg 06-21 Spirit 00:00: - [facility] Hy[place] 20 [place] 20 2021-0 No 20mg C ommon mg mg 06-21 Spirit 00:00: - [facility] Hy[place] 20 [place] 20 2021-0 No 20mg C ommon mg mg 06-21 Spirit 00:00: - [facility] Hy[place] 20 [place] 20 2021-0 No 20mg C ommon mg mg 06-21 Spirit 00:00: - [facility] Hyal[place] 20 [place] 20 2021-0 No 20mg C ommon mg mg 06-21 Spirit 00:00: - [facility] Hy[place] 20 Hy[place] 20 2021-0 No 20mg C ommon mg mg 06-21 Spirit 00:00: - [facility] Hyalgan 20 Hyalgan 20 2021-0 No 20mg C ommon mg mg - Spirit 00:00: - [facility] Hyalgan 20 Hy[place] 20 2021-0 No 20mg C ommon mg mg - Spirit 00:00: - [facility] Hyalgan 20 Hy[place] 20 2021-0 No 20mg C ommon mg mg -14 Spirit 00:00: - [facility] 00 [facility] Hyalgan 20 Hyalgan 20 2021-0 No 20mg C ommon mg mg 06-21 Spirit 00:00: - [facility] Hyalgan 20 Hyalgan 20 2021-0 No 20mg C ommon mg mg 06-21 00:00: - [facility] Hyalgan 20 [place] 20 2021-0 No 20mg C ommon mg mg 06-21 00:00: - [facility] Hyalgan 20 Hy[place]gan 20 2021-0 No 20mg C ommon mg mg 06-21 00:00: - [facility] Hyalgan 20 Hyalgan 20 2021-0 No 20mg C ommon mg mg 06-14 00:00: - [facility] Hyalgan 20 Hyalgan 20 2021-0 No 20mg C ommon mg mg 06-14 00:00: - [facility] Hyalgan 20 Hyalgan 20 2021-0 No 20mg C ommon mg mg 06-14 00:00: - [facility] Hyalgan 20 Hyalgan 20 2021-0 No 20mg C ommon mg mg 06-14 00:00: - [facility] Hyalgan 20 Hyalgan 20 2021-0 No 20mg C ommon mg mg 06-14 00:00: - [facility] Hyalgan 20 Hyalgan 20 2021-0 No 20mg C ommon mg mg 06-14 Spirit 00:00: - [facility] Hyalgan 20 Hyalgan 20 2021-0 No 20mg C ommon mg mg 06-14 Spirit 00:00: - [facility] Hyalgan 20 Hyalgan 20 2021-0 No 20mg C ommon mg mg 06-14 Spirit 00:00: - [facility] Hyalgan 20 Hyalgan 20 2021-0 No 20mg C ommon mg mg 06-14 Spirit 00:00: - [facility] Hyalgan 20 Hyalgan 20 2021-0 No 20mg C ommon mg mg 06-14 Spirit 00:00: - [facility] Hyalgan 20 Hyalgan 20 2021-0 No 20mg C ommon mg mg 06-14 Spirit 00:00: - [facility] Hyalgan 20 Hyalgan 20 2021-0 No 20mg C ommon mg mg 06-14 Spirit 00:00: - [facility] Hyalgan 20 Hyalgan 20 2021-0 No 20mg C ommon mg mg 06-14 Spirit 00:00: - [facility] Hyalgan 20 Hyalgan 20 2021-0 No 20mg C ommon mg mg 06-14 Spirit 00:00: - [facility] Hyalgan 20 Hyalgan 20 2021-0 No 20mg C ommon mg mg 06-14 Spirit 00:00: - [facility] Hyalgan 20 Hyalgan 20 2021-0 No 20mg C ommon mg mg 06-14 Spirit 00:00: - [facility] Bupivicaine Bupivicaine 2021-0 No Common Rudolph Rudolph 3- Spirit 00:00: - [facility] Kenalog Kenalog 2021-0 No 40mg Common (Triamcinol (Triamcinol 3-31 S pirit one) one) 00:00: - [facility] 00 [facility] Bupivicaine Bupivicaine 2021-0 No Common Rudolph Rudolph 3-31 Spirit 00:00: - [facility] Hyalgan 20 Hyalgan 20 2021-0 No 20mg C ommon mg mg 06-07 Spirit 00:00: - [facility] Hyalgan 20 Hyalgan 20 2021-0 No 20mg C ommon mg mg 06-07 Spirit 00:00: - [facility] Kenalog Kenalog 2021-0 No 40mg Common (Triamcinol (Triamcinol 3-31 S pirit one) one) 00:00: - [facility] Bupivicaine Bupivicaine 2-0 No 2.5mg Common Rudolph Rudolph 3-31 Spirit 00:00: - [facility] Bupivicaine Bupivicaine 2-0 No 2.5mg Common Rudolph Rudolph 3-31 Spirit 00:00: - [facility] Kenalog Kenalog 2021-0 No 40mg Common (Triamcinol (Triamcinol 3-31 S pirit one) one) 00:00: - [facility] Hyalgan 20 Hyalgan 20 2021-0 No 20mg C ommon mg mg 3-31 Spirit 00:00: - CHI 00 [facility] Hyalgan 20 Hyalgan 20 2021-0 No 20mg C ommon mg mg 3-31 Spirit 00:00: - CHI 00 [facility] Kenalog Kenalog 2021-0 No 40mg Common (Triamcinol (Triamcinol 3-31 S pirit one) one) 00:00: - CHI 00 [facility] Bupivicaine Bupivicaine 2021-0 No 2.5mg Common Rudolph Rudolph 3-31 Spirit 00:00: - CHI 00 [facility] Kenalog Kenalog 2021-0 No 40mg Common (Triamcinol (Triamcinol 3-31 S pirit one) one) 00:00: - CHI 00 [facility] Hyalgan 20 Hyalgan 20 2021-0 No 20mg C ommon mg mg 3-31 Spirit 00:00: - CHI 00 [facility] Hyalgan 20 Hyalgan 20 2021-0 No 20mg C ommon mg mg 3-31 Spirit 00:00: - CHI 00 [facility] Kenalog Kenalog 2021-0 No 40mg Common (Triamcinol (Triamcinol 3-31 S pirit one) one) 00:00: - [facility]I 00 [facility] Bupivicaine Bupivicaine 2021-0 No 2.5mg Common Rudolph Rudolph 3-31 Spirit 00:00: - [facility]I 00 [facility] Bupivicaine Bupivicaine 2021-0 No 2.5mg Common Rudolph Rudolph 3-31 Spirit 00:00: - CHI 00 [facility] Kenalog Kenalog 2021-0 No 40mg Common (Triamcinol (Triamcinol 3-31 S pirit one) one) 00:00: - CHI 00 [facility] Hyalgan 20 Hyalgan 20 2021-0 No 20mg C ommon mg mg 3-31 Spirit 00:00: - CHI 00 [facility] Hyalgan 20 Hyalgan 20 2021-0 No 20mg C ommon mg mg 3-31 Spirit 00:00: - [facility]I 00 [facility] Kenalog Kenalog 2021-0 No 40mg Common (Triamcinol (Triamcinol 3-31 S pirit one) one) 00:00: - CHI 00 [facility] Bupivicaine Bupivicaine 2-0 No 2.5mg Common Rudolph Rudolph 3-31 Spirit 00:00: - CHI 00 [facility] Bupivicaine Bupivicaine 2-0 No 2.5mg Common Rudolph Rudolph 3-31 Spirit 00:00: - CHI 00 [facility] Kenalog Kenalog 2021-0 No 40mg Common (Triamcinol (Triamcinol 3-31 S pirit one) one) 00:00: - [facility]I 00 [facility] Hyalgan 20 Hyalgan 20 2021-0 No 20mg C ommon mg mg 3- Spirit 00:00: - CHI 00 [facility] Hyalgan 20 Hyalgan 20 2021-0 No 20mg C ommon mg mg 3-31 Spirit 00:00: - CHI 00 [facility] Kenalog Kenalog 2021-0 No 40mg Common (Triamcinol (Triamcinol 3-31 S pirit one) one) 00:00: - CHI 00 [facility] Bupivicaine Bupivicaine 2021-0 No 2.5mg Common Rudolph Rudolph 3-31 Spirit 00:00: - CHI 00 [facility] Bupivicaine Bupivicaine 2021-0 No 2.5mg Common Rudolph Rudolph 3-31 Spirit 00:00: - CHI 00 [facility] Kenalog Kenalog 2021-0 No 40mg Common (Triamcinol (Triamcinol 3-31 S pirit one) one) 00:00: - CHI 00 [facility] Hyalgan 20 Hyalgan 20 2021-0 No 20mg C ommon mg mg 3-31 Spirit 00:00: - [facility]I 00 [facility] Hyalgan 20 Hyalgan 20 2021-0 No 20mg C ommon mg mg 3-31 Spirit 00:00: - CHI 00 [facility] Kenalog Kenalog 2021-0 No 40mg Common (Triamcinol (Triamcinol 3-31 S pirit one) one) 00:00: - [facility]I 00 [facility] Bupivicaine Bupivicaine 2021-0 No 2.5mg Common Rudolph Rudolph 3-31 Spirit 00:00: - [facility] 00 [facility] Bupivicaine Bupivicaine 2021-0 No 2.5mg Common Rudolph Rudolph 3-31 Spirit 00:00: - CHI 00 [facility] Kenalog Kenalog 2021-0 No 40mg Common (Triamcinol (Triamcinol 3-31 S pirit one) one) 00:00: - [facility]I 00 [facility] Hyalgan 20 Hyalgan 20 2021-0 No 20mg C ommon mg mg 3-31 Spirit 00:00: - [facility]I 00 [facility] Hyalgan 20 Hyalgan 20 2021-0 No 20mg C ommon mg mg 3-31 Spirit 00:00: - [facility] 00 [facility] Kenalog Kenalog 2021-0 No 40mg Common (Triamcinol (Triamcinol 3-31 S pirit one) one) 00:00: - [facility] 00 [facility] Bupivicaine Bupivicaine 2021-0 No 2.5mg Common Rudolph Rudolph 3-31 Spirit 00:00: - [facility] 00 [facility] Bupivicaine Bupivicaine 2021-0 No 2.5mg Common Rudolph Rudolph 3-31 Spirit 00:00: - [facility] 00 [facility] Kenalog Kenalog 2021-0 No 40mg Common (Triamcinol (Triamcinol 3-31 S pirit one) one) 00:00: - [facility] 00 [facility] Hyalgan 20 Hyalgan 20 2021-0 No 20mg C ommon mg mg 3-31 Spirit 00:00: - [facility] 00 [facility] Hyalgan 20 Hyalgan 20 2021-0 No 20mg C ommon mg mg 3-31 Spirit 00:00: - [facility]I 00 [facility] Kenalog Kenalog 2021-0 No 40mg Common (Triamcinol (Triamcinol 3-31 S pirit one) one) 00:00: - [facility] 00 [facility] Bupivicaine Bupivicaine 2-0 No 2.5mg Common Rudolph Rudolph 3-31 Spirit 00:00: - [facility] 00 [facility] Bupivicaine Bupivicaine 2022-0 No 2.5mg Common Rudolph Rudolph 3-31 Spirit 00:00: - [facility]I 00 [facility] Kenalog Kenalog 2-0 No 40mg Common (Triamcinol (Triamcinol 3-31 S pirit one) one) 00:00: - CHI 00 [facility] Hyalgan 20 Hyalgan 20 2021-0 No 20mg C ommon mg mg 3- Spirit 00:00: - CHI 00 [facility] Hyalgan 20 Hyalgan 20 2021-0 No 20mg C ommon mg mg 3 Spirit 00:00: - [facility]I 00 [facility] Kenalog Kenalog 2-0 No 40mg Common (Triamcinol (Triamcinol 3-31 S pirit one) one) 00:00: - [facility] 00 [facility] Bupivicaine Bupivicaine 2-0 No 2.5mg Common Rudolph Rudolph 3-31 Spirit 00:00: - [facility] 00 [facility] Dose 2-0 No Unknown 3-08 00:00: 00 Dose 2022-0 No Unknown 3-08 00:00: 00 Dose 2022-0 No Unknown 3-08 00:00: 00 Dose 2022-0 No Unknown 3-08 00:00: 00 Dose 2-0 No Unknown 3-08 00:00: 00 Dose 2-0 No Unknown 3-08 00:00: 00 Dose 2-0 No Unknown 3-08 00:00: 00 Dose 2-0 No Unknown 3-08 00:00: 00 Dose 2-0 No Unknown 3-08 00:00: 00 Dose 2022-0 No Unknown 3-08 00:00: 00 Dose 2022-0 No Unknown 3-08 00:00: 00 Dose 2022-0 No Unknown 3-08 00:00: 00 Dose 2022-0 No Unknown 3-07 00:00: 00 Dose 2-0 No Unknown 3-07 00:00: 00 Dose 2-0 No Unknown 3-07 00:00: 00 Dose 2022-0 No Unknown 3-07 00:00: 00 Dose 2022-0 No Unknown 3-07 00:00: 00 Dose 2-0 No Unknown 3-07 00:00: 00 Dose 2022-0 No Unknown 3-07 00:00: 00 Dose 2022-0 No Unknown 3-07 00:00: 00 Dose 2022-0 No Unknown 3-07 00:00: 00 Dose 2022-0 No Unknown 3-07 00:00: 00 Dose 2022-0 No Unknown 3- 00:00: 00 Dose 2022-0 No Unknown 3- 00:00: 00 Dose 2022-0 No Unknown 3- 00:00: 00 Dose 2022-0 No Unknown 3- 00:00: 00 Dose 2022-0 No Unknown 3- 00:00: 00 Dose 2022-0 No Unknown 3-07 00:00: 00 Dose 2022-0 No Unknown 3-07 00:00: 00 Dose 2022-0 No Unknown 3-07 00:00: 00 potassium 2021-0 Yes [id number] 10mL Take 10 mL Univers citrate-cit 1-25 by mouth ity of suzi acid 00:00: after [place] 1,100-334 00 meals and Medic al mg/5 mL at Branch solution bedtime. finasteride 2021-0 Yes [id number] 5mg Take 1 Univers 5 mg tablet 1-25 tablet by ity of 00:00: mouth [place] 00 daily. Medical Branch tamsulosin 0 Yes .4mg Take 1 Unive rs 0.4 mg 24 1-25 capsule by ity of hr capsule 00:00: mouth at [place] 00 bedtime. Medical Branch lisinopriL- 0 Yes [id number] 1{tbl} Take 1 Univers hydrochloro 1-25 tablet by ity of thiazide 00:00: mouth [place] 20-12.5 mg 00 daily. Medical per tablet Branch potassium 2021-0 Yes [id number] 10mL Take 10 mL Univers citrate-cit 1-25 by mouth ity of suzi acid 00:00: after [place] 1,100-334 00 meals and Medic al mg/5 mL at Branch solution bedtime. finasteride 2021-0 Yes [id number] 5mg Take 1 Univers 5 mg tablet 1-25 tablet by ity of 00:00: mouth [place] 00 daily. Medical Branch tamsulosin 2021-0 Yes .4mg Take 1 Unive rs 0.4 mg 24 1-25 capsule by ity of hr capsule 00:00: mouth at [place] 00 bedtime. Medical Branch lisinopriL- 2022-0 Yes [id number] 1{tbl} Take 1 Univers hydrochloro 1-25 tablet by ity of thiazide 00:00: mouth [place] 20-12.5 mg 00 daily. Medical per tablet Branch potassium 2021-0 Yes [id number] 10mL Take 10 mL Univers citrate-cit 1-25 by mouth ity of suzi acid 00:00: after [place] 1,100-334 00 meals and Medic al mg/5 mL at Branch solution bedtime. finasteride 2021-0 Yes [id number] 5mg Take 1 Univers 5 mg tablet 1-25 tablet by ity of 00:00: mouth [place] 00 daily. Medical Branch tamsulosin 2021-0 Yes .4mg Take 1 Unive rs 0.4 mg 24 1-25 capsule by ity of hr capsule 00:00: mouth at [place] 00 bedtime. Medical Branch lisinopriL- 0 Yes [id number] 1{tbl} Take 1 Univers hydrochloro 1-25 tablet by ity of thiazide 00:00: mouth [place] 20-12.5 mg 00 daily. Medical per tablet Branch potassium 2021-0 Yes [id number] 10mL Take 10 mL Univers citrate-cit 1-25 by mouth ity of suzi acid 00:00: after [place] 1,100-334 00 meals and Medic al mg/5 mL at Branch solution bedtime. tamsulosin 2021-0 Yes .4mg Take 1 Unive rs 0.4 mg 24 1-25 capsule by ity of hr capsule 00:00: mouth at [place] 00 bedtime. Medical Branch lisinopriL- 2021-0 Yes [id number] 1{tbl} Take 1 Univers hydrochloro 1-25 tablet by ity of thiazide 00:00: mouth [place] 20-12.5 mg 00 daily. Medical per tablet Branch potassium 2021-0 Yes [id number] 10mL Take 10 mL Univers citrate-cit 1-25 by mouth ity of suzi acid 00:00: after [place] 1,100-334 00 meals and Medic al mg/5 mL at Branch solution bedtime. tamsulosin 2021-0 Yes .4mg Take 1 Un[facility] rs 0.4 mg 24 1-25 capsule by ity of hr capsule 00:00: mouth at [place] 00 bedtime. Medical Branch lisinopriL- 2021-0 Yes [id number] 1{tbl} Take 1 [facility] hydrochloro 1-25 tablet by ity of thiazide 00:00: mouth [place] 20-12.5 mg 00 daily. Medical per tablet Branch potassium 2021-0 Yes [id number] 10mL Take 10 mL [facility] citrate-cit 1-25 by mouth ity of suzi acid 00:00: after [place] 1,100-334 00 meals and Medic al mg/5 mL at Branch solution bedtime. tamsulosin 2021-0 Yes .4mg Take 1 [facility] rs 0.4 mg 24 1-25 capsule by ity of hr capsule 00:00: mouth at [place] 00 bedtime. Medical Branch lisinopriL- 2021-0 Yes [id number] 1{tbl} Take 1 [facility] hydrochloro 1-25 tablet by ity of thiazide 00:00: mouth [place] 20-12.5 mg 00 daily. Medical per tablet Branch potassium 2021-0 Yes [id number] 10mL Take 10 mL [facility] citrate-cit 1-25 by mouth ity of suzi acid 00:00: after [place] 1,100-334 00 meals and Medic al mg/5 mL at Branch solution bedtime. tamsulosin 2021-0 Yes .4mg Take 1 [facility] rs 0.4 mg 24 1-25 capsule by ity of hr capsule 00:00: mouth at [place] as 00 bedtime. Medical Branch lisinopriL- 2021-0 Yes [id number] 1{tbl} Take 1 [facility] hydrochloro 1-25 tablet by ity of thiazide 00:00: mouth [place] 20-12.5 mg 00 daily. Medical per tablet Branch potassium 2021-0 Yes [id number] 10mL Take 10 mL [facility] citrate-cit 1-25 by mouth ity of suzi acid 00:00: after [place] 1,100-334 00 meals and Medic al mg/5 mL at Branch solution bedtime. tamsulosin 2021-0 Yes .4mg Take 1 [facility] rs 0.4 mg 24 1-25 capsule by ity of hr capsule 00:00: mouth at [place] 00 bedtime. Medical Branch lisinopriL- 2021-0 Yes [id number] 1{tbl} Take 1 [facility] hydrochloro 1-25 tablet by ity of thiazide 00:00: mouth [place] 20-12.5 mg 00 daily. Medical per tablet Branch potassium 2021-0 Yes [id number] 10mL Take 10 mL [facility] citrate-cit 1-25 by mouth ity of suzi acid 00:00: after [place] 00 meals and Medic al mg/5 mL at Branch solution bedtime. tamsulosin 2021-0 Yes .4mg Take 1 [facility] rs 0.4 mg 24 1-25 capsule by ity of hr capsule 00:00: mouth at [place] 00 bedtime. Medical Branch lisinopriL- 2021-0 Yes [id number] 1{tbl} Take 1 [facility] hydrochloro 1-25 tablet by ity of thiazide 00:00: mouth [place] 20-12.5 mg 00 daily. Medical per tablet [place] potassium 2021-0 Yes [id number] 10mL Take 10 mL [facility] citrate-cit 1-25 by mouth ity of suzi acid 00:00: after [place] 00 meals and Medic al mg/5 mL at Branch solution bedtime. tamsulosin 2021-0 Yes .4mg Take 1 [facility] rs 0.4 mg 24 1-25 capsule by ity of hr capsule 00:00: mouth at [place] 00 bedtime. Medical Branch lisinopriL- 2021-0 Yes [id number] 1{tbl} Take 1 [facility] hydrochloro 1-25 tablet by ity of thiazide 00:00: mouth [place] 20-12.5 mg 00 daily. Medical per tablet [place] potassium 2021-0 Yes [id number] 10mL Take 10 mL [facility] citrate-cit 1-25 by mouth ity of suzi acid 00:00: after [place] 00 meals and Medic al mg/5 mL at Branch solution bedtime. tamsulosin 2021-0 Yes .4mg Take 1 [facility] rs 0.4 mg 24 1-25 capsule by ity of hr capsule 00:00: mouth at [place] 00 bedtime. Medical Branch lisinopriL- 2021-0 Yes [id number] 1{tbl} Take 1 [facility] hydrochloro 1-25 tablet by ity of thiazide 00:00: mouth [place] 20-12.5 mg 00 daily. Medical per tablet [place] potassium 2021-0 Yes [id number] 10mL Take 10 mL [facility] citrate-cit 1-25 by mouth ity of suzi acid 00:00: after [place] 1,100-334 00 meals and Medic al mg/5 mL at Branch solution bedtime. tamsulosin 0 Yes .4mg Take 1 [facility] rs 0.4 mg 24 1-25 capsule by ity of hr capsule 00:00: mouth at [place] 00 bedtime. Medical Branch lisinopriL- 0 Yes [id number] 1{tbl} Take 1 [facility] hydrochloro 1-25 tablet by ity of thiazide 00:00: mouth [place] 20-12.5 mg 00 daily. Medical per tablet Branch potassium 0 Yes [id number] 10mL Take 10 mL [facility] citrate-cit 1-25 by mouth ity of suzi acid 00:00: after [place] ,-334 00 meals and Medic al mg/5 mL at Branch solution bedtime. lisinopriL- 0 Yes [id number] 1{tbl} Take 1 [facility] hydrochloro 1-25 tablet by ity of thiazide 00:00: mouth [place] 20-12.5 mg 00 daily. Medical per tablet Branch potassium 2021-0 Yes [id number] 10mL Take 10 mL [facility] citrate-cit 1-25 by mouth ity of suzi acid 00:00: after [place] ,334 00 meals and Medic al mg/5 mL at Branch solution bedtime. lisinopriL- 2021-0 Yes [id number] 1{tbl} Take 1 [facility] hydrochloro 1-25 tablet by ity of thiazide 00:00: mouth [place] 20-12.5 mg 00 daily. Medical per tablet Branch potassium 2021-0 Yes [id number] 10mL Take 10 mL [facility] citrate-cit 1-25 by mouth ity of suzi acid 00:00: after [place] ,334 00 meals and Medic al mg/5 mL at Branch solution bedtime. lisinopriL- 2021-0 Yes [id number] 1{tbl} Take 1 [facility] hydrochloro 1-25 tablet by ity of thiazide 00:00: mouth [place] 20-12.5 mg 00 daily. Medical per tablet Branch potassium 2021-0 Yes [id number] 10mL Take 10 mL [facility] citrate-cit 1-25 by mouth ity of suzi acid 00:00: after [place] ,-334 00 meals and Medic al mg/5 mL at Branch solution bedtime. lisinopriL- 2021-0 Yes [id number] 1{tbl} Take 1 [facility] hydrochloro 1-25 tablet by ity of thiazide 00:00: mouth [place] 20-12.5 mg 00 daily. Medical per tablet Branch tamsulosin 2021- No .4mg Take 1 [facility] ers 0.4 mg 24 1-25 10-20 capsule by ity of hr capsule 00:00: 00:00 mouth at [place] 00 :00 bedtime. Medical Branch tamsulosin 2021- No .4mg Take 1 [facility] ers 0.4 mg 24 1-25 10-20 capsule by ity of hr capsule 00:00: 00:00 mouth at [place] 00 :00 bedtime. Medical Branch tamsulosin 2021- No .4mg Take 1 [facility] ers 0.4 mg 24 1-25 10-20 capsule by ity of hr capsule 00:00: 00:00 mouth at [place] 00 :00 bedtime. Medical Branch tamsulosin 2021- No .4mg Take 1 [facility] ers 0.4 mg 24 1-25 10-20 capsule by ity of hr capsule 00:00: 00:00 mouth at [place] 00 :00 bedtime. Medical Branch finasteride 2021- No [id number] 5mg Take 1 [facility] 5 mg tablet 1-25 07-14 tablet by it y of 00:00: 00:00 mouth [place] 00 :00 daily. Medical Branch doxycycline 2020-03 Yes [id number] 100mg Take 1 [facility] monohydrate 1-08 4107 tablet by ity of 100 mg 00:00: mouth 2 [place] tablet 00 (two) Medical times Branch daily. mupirocin 2 2020-03 Yes [id number] Apply to [facility] % ointment 1-08 4107 area(s) 3 ity of 00:00: (three) [place] 00 times Medical daily. Branch doxycycline 2020-03 Yes [id number] 100mg Take 1 [facility] monohydrate 1-08 4107 tablet by ity of 100 mg 00:00: mouth 2 [place] tablet 00 (two) Medical times Branch daily. mupirocin 2 2020-03 Yes [id number] Apply to [facility] % ointment 1-08 4107 area(s) 3 ity of 00:00: (three) [place] 00 times Medical daily. Branch mupirocin 2 2020-03 Yes [id number] Apply to [facility] % ointment 1-08 4107 area(s) 3 ity of 00:00: (three) [place] 00 times Medical daily. Branch mupirocin 2 2020-03 Yes [id number] Apply to [facility] % ointment 1-08 4107 area(s) 3 ity of 00:00: (three) [place] 00 times Medical daily. Branch mupirocin 2 2020-03 Yes [id number] Apply to [facility] % ointment 1-08 4107 area(s) 3 ity of 00:00: (three) [place] 00 times Medical daily. Branch mupirocin 2 2020-03 Yes [id number] Apply to [facility] % ointment 1-08 4107 area(s) 3 ity of 00:00: (three) [place] 00 times Medical daily. Branch mupirocin 2 2020-03 Yes [id number] Apply to [facility] % ointment 1-08 4107 area(s) 3 ity of 00:00: (three) [place] 00 times Medical daily. Branch mupirocin 2 2020-03 Yes [id number] Apply to [facility] % ointment 1-08 4107 area(s) 3 ity of 00:00: (three) [place] 00 times Medical daily. Branch mupirocin 2 2020-03 Yes [id number] Apply to [facility] % ointment 1-08 4107 area(s) 3 ity of 00:00: (three) [place] 00 times Medical daily. Branch mupirocin 2 2020-03 Yes [id number] Apply to [facility] % ointment 1-08 4107 area(s) 3 ity of 00:00: (three) [place] 00 times Medical daily. Branch mupirocin 2 2020-03 Yes [id number] Apply to [facility] % ointment 1-08 4107 area(s) 3 ity of 00:00: (three) [place] 00 times Medical daily. Branch mupirocin 2 2020-03 Yes [id number] Apply to [facility] % ointment 1-08 4107 area(s) 3 ity of 00:00: (three) [place] 00 times Medical daily. Branch mupirocin 2 2020-03 Yes [id number] Apply to [facility] % ointment 1-08 4107 area(s) 3 ity of 00:00: (three) [place] 00 times Medical daily. Branch mupirocin 2 2020-03 Yes [id number] Apply to [facility] % ointment 1-08 4107 area(s) 3 ity of 00:00: (three) [place] 00 times Medical daily. Branch mupirocin 2 2020-03 Yes [id number] Apply to [facility] % ointment 1-08 4107 area(s) 3 ity of 00:00: (three) [place] 00 times Medical daily. Branch mupirocin 2 2020-03 Yes [id number] Apply to [facility] % ointment 1-08 4107 area(s) 3 ity of 00:00: (three) [place] 00 times Medical daily. Branch doxycycline 2020-03- No [id number] 100mg Take 1 [facility] monohydrate 03-17 05-27 4107 tablet by it y of 100 mg 00:00: 00:00 mouth 2 [place] tablet 00 :00 (two) Medical times [place] daily. potassium 2020-03- No [id number] 10mL Take 10 mL [facility] citrate-cit 0-14 -25 by mouth ity of suzi acid 00:00: 00:00 after [place] 1,100-334 00 :00 meals and Medic al mg/5 mL at Branch solution bedtime. potassium 2020-03- No [id number] 10mL Take 10 mL [facility] citrate-cit 0-14 -25 by mouth ity of suzi acid 00:00: 00:00 after [place] 1,100-334 00 :00 meals and Medic al mg/5 mL at Branch solution bedtime. tamsulosin 2021- No [id number] .4mg Take 1 [facility] 0.4 mg 24 09-12-25 capsule by ity of hr capsule 00:00: 00:00 mouth at [place] 00 :00 bedtime. Medical Branch tamsulosin 2021- No [id number] .4mg Take 1 [facility] 0.4 mg 24 09-12-25 capsule by ity of hr capsule 00:00: 00:00 mouth at [place] 00 :00 bedtime. Medical Branch Align 4 mg No 1mg capsule 5-25 00:00: 00 Align 4 mg 2021-0 No 1mg capsule 5-25 00:00: 00 [place]ign 4 mg 1-0 No 1mg capsule 5-25 00:00: 00 Dose 1-0 No Unknown 5-04 00:00: 00 rosuvastati 1-0 No 1mg n 5 mg 5-04 tablet 00:00: 00 Dose 1-0 No Unknown 5-04 00:00: 00 rosuvastati 1-0 No 1mg n 5 mg 5-04 tablet 00:00: 00 Dose 1-0 No Unknown 5-04 00:00: 00 rosuvastati 1-0 No 1mg n 5 mg 5-04 tablet 00:00: 00 [place] Kenalog 2020-0 No 40mg Common (Triamcinol (Triamcinol 4-19 S pirit one) one) 00:00: - [facility] Bupivicaine Bupivicaine 2020-0 No Common Rudolph Rudolph 4-19 Spirit 00:00: - [facility] 00 [facility] Bupivicaine Bupivicaine 2020-0 No Common Rudolph Rudolph 4-19 Spirit 00:00: - [facility] 00 [facility] Kenalog Kenalog 2020-0 No 40mg Common (Triamcinol (Triamcinol 4-19 S pirit one) one) 00:00: - [facility] 00 [facility] Kenalog Kenalog 2020-0 No 40mg Common (Triamcinol (Triamcinol 4-19 S pirit one) one) 00:00: - [facility] 00 [facility] Bupivicaine Bupivicaine 2020-0 No 2.5mg Common Rudolph Rudolph 4-19 Spirit 00:00: - [facility] 00 [facility] Bupivicaine Bupivicaine 1-0 No 2.5mg Common Rudolph Rudolph 4-19 Spirit 00:00: - [facility] 00 [facility] Kenalog Kenalog 2020-0 No 40mg Common (Triamcinol (Triamcinol 4-19 S pirit one) one) 00:00: - [facility] 00 [facility] Bupivicaine Bupivicaine 1-0 No 2.5mg Common Rudolph Rudolph 4-19 Spirit 00:00: - [facility] 00 [facility] Bupivicaine Bupivicaine 2020-0 No 2.5mg Common Rudolph Rudolph 4-19 Spirit 00:00: - [facility] 00 [facility] Kenalog Kenalog 2020-0 No 40mg Common (Triamcinol (Triamcinol 4-19 S pirit one) one) 00:00: - [facility] 00 [facility] Kenalog Kenalog 2020-0 No 40mg Common (Triamcinol (Triamcinol 4-19 S pirit one) one) 00:00: - [facility] 00 [facility] Bupivicaine Bupivicaine 2020-0 No 2.5mg Common Rudolph Rudolph 4-19 Spirit 00:00: - [facility] 00 [facility] Bupivicaine Bupivicaine 2020-0 No 2.5mg Common Rudolph Rudolph 4-19 Spirit 00:00: - [facility] 00 [facility] Alexandre Kenalog 2020-0 No 40mg Common (Triamcinol (Triamcinol 4-19 S pirit one) one) 00:00: - [facility] 00 [facility] Alexandre Kenalog 2020-0 No 40mg Common (Triamcinol (Triamcinol 4-19 S pirit one) one) 00:00: - [facility] 00 [facility] Bupivicaine Bupivicaine 2020-0 No 2.5mg Common Rudolph Rudolph 4-19 Spirit 00:00: - [facility] 00 [facility] Bupivicaine Bupivicaine 2020-0 No 2.5mg Common Rudolph Rudolph 4-19 Spirit 00:00: - [facility] 00 [facility] Kenalog Kenalog 2020-0 No 40mg Common (Triamcinol (Triamcinol 4-19 S pirit one) one) 00:00: - [facility] 00 [facility] Kenalog Kenalog 2020-0 No 40mg Common (Triamcinol (Triamcinol 4-19 S pirit one) one) 00:00: - [facility] 00 [facility] Bupivicaine Bupivicaine 2020-0 No 2.5mg Common Rudolph Rudolph 4-19 Spirit 00:00: - [facility] 00 [facility] Bupivicaine Bupivicaine 2020-0 No 2.5mg Common Rudolph Rudolph 4-19 Spirit 00:00: - [facility] 00 [facility] Kenalog Kenalog 2020-0 No 40mg Common (Triamcinol (Triamcinol 4-19 S pirit one) one) 00:00: - [facility] 00 [facility] Kenalog Kenalog 2020-0 No 40mg Common (Triamcinol (Triamcinol 4-19 S pirit one) one) 00:00: - [facility] 00 [facility] Bupivicaine Bupivicaine 2020-0 No 2.5mg Common Rudolph Rudolph 4-19 Spirit 00:00: - [facility] 00 [facility] Bupivicaine Bupivicaine 2020-0 No 2.5mg Common Rudolph Rudolph 4-19 Spirit 00:00: - [facility] 00 [facility] Kenalog Kenalog 2020-0 No 40mg Common (Triamcinol (Triamcinol 4-19 S pirit one) one) 00:00: - [facility] 00 [facility] Kenalog Kenalog 2020-0 No 40mg Common (Triamcinol (Triamcinol 4-19 S pirit one) one) 00:00: - [facility] 00 [facility] Bupivicaine Bupivicaine 2020-0 No 2.5mg Common Rudolph Rudolph 4-19 Spirit 00:00: - [facility] 00 [facility] Bupivicaine Bupivicaine 2020-0 No 2.5mg Common Rudolph Rudolph 4-19 Spirit 00:00: - [facility] 00 [facility] Kenalog Kenalog 2020-0 No 40mg Common (Triamcinol (Triamcinol 4-19 S pirit one) one) 00:00: - [facility] 00 [facility] Kenalog Kenalog 2020-0 No 40mg Common (Triamcinol (Triamcinol 4-19 S pirit one) one) 00:00: - [facility] 00 [facility] Kenalog Kenalog 2020-0 No 40mg Common (Triamcinol (Triamcinol 4-19 S pirit one) one) 00:00: - [facility] 00 [facility] Bupivicaine Bupivicaine 2020-0 No Common Rudolph Rudolph 4-19 Spirit 00:00: - [facility] 00 [facility] Bupivicaine Bupivicaine 2020-0 No 2.5mg Common Rudolph Rudolph 4-19 Spirit 00:00: - [facility] 00 [facility] Bupivicaine Bupivicaine 2020-0 No Common Rudolph Rudolph 4-19 Spirit 00:00: - [facility] 00 [facility] Kenalog Kenalog 2020-0 No 40mg Common (Triamcinol (Triamcinol 4-19 S pirit one) one) 00:00: - [facility] 00 [facility] Kenalog Kenalog 2020-0 No 40mg Common (Triamcinol (Triamcinol 4-19 S pirit one) one) 00:00: - [facility] 00 [facility] Bupivicaine Bupivicaine 2020-0 No 2.5mg Common Rudolph Rudolph 4-19 Spirit 00:00: - [facility] 00 [facility] Bupivicaine Bupivicaine 2020-0 No Common Rudolph Rudolph 4-19 Spirit 00:00: - [facility] 00 [facility] Bupivicaine Bupivicaine 2020-0 No Common Rudolph Rudolph 4-19 Spirit 00:00: - [facility] 00 [facility] Kenalog Kenalog 2020-0 No 40mg Common (Triamcinol (Triamcinol 4-19 S pirit one) one) 00:00: - [facility] 00 [facility] Kenalog Kenalog 2020-0 No 40mg Common (Triamcinol (Triamcinol 4-19 S pirit one) one) 00:00: - [facility] 00 [facility] Kenalog Kenalog 2020-0 No 40mg Common (Triamcinol (Triamcinol 4-19 S pirit one) one) 00:00: - [facility] 00 [facility] Bupivicaine Bupivicaine 2020-0 No Common Rudolph Rudolph 4-19 Spirit 00:00: - [facility] 00 [facility] Kenalog Kenalog 2020-0 No 40mg Common (Triamcinol (Triamcinol 4-19 S pirit one) one) 00:00: - [facility] 00 [facility] Bupivicaine Bupivicaine 2020-0 No Common Rudolph Rudolph 4-19 Spirit 00:00: - [facility] 00 [facility] Kenalog Kenalog 2021-0 No 40mg Common (Triamcinol (Triamcinol 4-19 S pirit one) one) 00:00: - [facility] 00 [facility] aspirin 81 2019-1 Yes 81mg Take 81 mg U nivers mg EC 2-11 by mouth ity of tablet 14:15: daily. [address] aspirin 81 2020-1 Yes 81mg Take 81 mg U nivers mg EC 2-11 by mouth ity of tablet 14:15: daily. [address] Branch bacitracin 2020- Yes [id number] Apply to [facility] 500 2-11 affected ity of unit/gram 00:00: area(s) 2 [place] ointment 00 (two) Medical times Branch daily. ibuprofen 2019-03 Yes [id number] 600mg Take 1 U nivers 600 mg 2-11 tablet by ity of tablet 00:00: mouth [place] 00 every 6 Medical (six) Branch hours as needed for Pain (scale 4-6). bacitracin 2019-03 Yes [id number] Apply to [facility] 500 2-11 affected ity of unit/gram 00:00: area(s) 2 [place] ointment 00 (two) Medical times Branch daily. ibuprofen 2019-03 Yes [id number] 600mg Take 1 U nivers 600 mg 2-11 tablet by ity of tablet 00:00: mouth [place] 00 every 6 Medical (six) Branch hours as needed for Pain (scale 4-6). bacitracin 2019-03 Yes [id number] Apply to [facility] 500 2-11 affected ity of unit/gram 00:00: area(s) 2 [place] ointment 00 (two) Medical times Branch daily. ibuprofen 2019- Yes [id number] 600mg Take 1 U nivers 600 mg 2-11 tablet by ity of tablet 00:00: mouth [place] 00 every 6 Medical (six) Branch hours as needed for Pain (scale 4-6). bacitracin 2020- Yes [id number] Apply to [facility] 500 2-11 affected ity of unit/gram 00:00: area(s) 2 [place] ointment 00 (two) Medical times Branch daily. ibuprofen 2019- Yes [id number] 600mg Take 1 U nivers 600 mg 2-11 tablet by ity of tablet 00:00: mouth [place] 00 every 6 Medical (six) Branch hours as needed for Pain (scale 4-6). bacitracin 2020-1 Yes [id number] Apply to [facility] 500 2-11 affected ity of unit/gram 00:00: area(s) 2 [place] ointment 00 (two) Medical times Branch daily. ibuprofen 2020-1 Yes [id number] 600mg Take 1 U nivers 600 mg 2-11 tablet by ity of tablet 00:00: mouth [place] 00 every 6 Medical (six) Branch hours as needed for Pain (scale 4-6). bacitracin 2020-1 Yes [id number] Apply to [facility] 500 2-11 affected ity of unit/gram 00:00: area(s) 2 [place] ointment 00 (two) Medical times Branch daily. ibuprofen 2020- Yes [id number] 600mg Take 1 U nivers 600 mg 2-11 tablet by ity of tablet 00:00: mouth [place] 00 every 6 Medical (six) Branch hours as needed for Pain (scale 4-6). bacitracin 2020-1 Yes [id number] Apply to [facility] 500 2-11 affected ity of unit/gram 00:00: area(s) 2 [place] ointment 00 (two) Medical times Branch daily. ibuprofen 2020- Yes [id number] 600mg Take 1 U nivers 600 mg 2-11 tablet by ity of tablet 00:00: mouth [place] 00 every 6 Medical (six) Branch hours as needed for Pain (scale 4-6). bacitracin 2020-1 Yes [id number] Apply to [facility] 500 2-11 affected ity of unit/gram 00:00: area(s) 2 [place] ointment 00 (two) Medical times Branch daily. ibuprofen 2020-1 Yes [id number] 600mg Take 1 U nivers 600 mg 2-11 tablet by ity of tablet 00:00: mouth [place] 00 every 6 Medical (six) Branch hours as needed for Pain (scale 4-6). bacitracin 2020-1 Yes [id number] Apply to [facility] 500 2-11 affected ity of unit/gram 00:00: area(s) 2 [place] ointment 00 (two) Medical times Branch daily. ibuprofen 2020-1 Yes [id number] 600mg Take 1 U nivers 600 mg 2-11 tablet by ity of tablet 00:00: mouth [place] 00 every 6 Medical (six) Branch hours as needed for Pain (scale 4-6). bacitracin 2020-1 Yes [id number] Apply to [facility] 500 2-11 affected ity of unit/gram 00:00: area(s) 2 [place] ointment 00 (two) Medical times Branch daily. ibuprofen 2020-1 Yes [id number] 600mg Take 1 U nivers 600 mg 2-11 tablet by ity of tablet 00:00: mouth [place] 00 every 6 Medical (six) Branch hours as needed for Pain (scale 4-6). bacitracin 2020-1 Yes [id number] Apply to [facility] 500 2-11 affected ity of unit/gram 00:00: area(s) 2 [place] ointment 00 (two) Medical times Branch daily. ibuprofen 2020-1 Yes [id number] 600mg Take 1 U nivers 600 mg 2-11 tablet by ity of tablet 00:00: mouth [place] 00 every 6 Medical (six) Branch hours as needed for Pain (scale 4-6). bacitracin 2020-1 Yes [id number] Apply to [facility] 500 2-11 affected ity of unit/gram 00:00: area(s) 2 [place] ointment 00 (two) Medical times Branch daily. ibuprofen 2020-1 Yes [id number] 600mg Take 1 U nivers 600 mg 2-11 tablet by ity of tablet 00:00: mouth [place] 00 every 6 Medical (six) Branch hours as needed for Pain (scale 4-6). bacitracin 2020-1 Yes [id number] Apply to [facility] 500 2-11 affected ity of unit/gram 00:00: area(s) 2 [place] ointment 00 (two) Medical times Branch daily. ibuprofen 2020-1 Yes [id number] 600mg Take 1 U nivers 600 mg 2-11 tablet by ity of tablet 00:00: mouth [place] 00 every 6 Medical (six) Branch hours as needed for Pain (scale 4-6). bacitracin 2020-1 Yes [id number] Apply to [facility] 500 2-11 affected ity of unit/gram 00:00: area(s) 2 [place] ointment 00 (two) Medical times Branch daily. ibuprofen 2020-1 Yes [id number] 600mg Take 1 U nivers 600 mg 2-11 tablet by ity of tablet 00:00: mouth [place] 00 every 6 Medical (six) Branch hours as needed for Pain (scale 4-6). bacitracin 2020-1 Yes [id number] Apply to [facility] 500 2-11 affected ity of unit/gram 00:00: area(s) 2 [place] ointment 00 (two) Medical times Branch daily. ibuprofen 2019- Yes [id number] 600mg Take 1 U nivers 600 mg 2-11 tablet by ity of tablet 00:00: mouth [place] 00 every 6 Medical (six) Branch hours as needed for Pain (scale 4-6). bacitracin 2020- Yes [id number] Apply to [facility] 500 2-11 affected ity of unit/gram 00:00: area(s) 2 [place] ointment 00 (two) Medical times Branch daily. ibuprofen 2019- Yes [id number] 600mg Take 1 U nivers 600 mg 2-11 tablet by ity of tablet 00:00: mouth [place] 00 every 6 Medical (six) Branch hours as needed for Pain (scale 4-6). acetaminoph 2019-03 Yes [id number] 1{tbl} Take 1 Un [facility] [...] (scale 4-6). Indication s: acute pain acetaminoph 2020-1 Yes [id number] 1{tbl} Take 1 Un [facility] en-codeine 1-27 tablet by ity of (TYLENOL-CO 00:00: mouth [place] DEINE #3) 00 every 6 Medical 300-30 mg (six) Branch tablet hours as needed for Pain (scale 4-6). Indication s: acute pain acetaminoph 2020-1 Yes 4647 1{tbl} Take 1 Un [place] en-codeine 1-27 tablet by ity of (TYLENOL-CO 00:00: mouth [place] DEINE #3) 00 every 6 Medical 300-30 mg (six) Branch tablet hours as needed for Pain (scale 4-6). Indication s: acute pain acetaminoph 2020-1 Yes 4647 1{tbl} Take 1 [facility] [place] en-codeine 1-27 tablet by ity of (TYLENOL-CO 00:00: mouth [place] DEINE #3) 00 every 6 Medical 300-30 mg (six) Branch tablet hours as needed for Pain (scale 4-6). Indication s: acute pain acetaminoph 2020-1 Yes 4647 1{tbl} Take 1 [facility] [place] en-codeine 1-27 tablet by ity of (TYLENOL-CO 00:00: mouth [place] DEINE #3) 00 every 6 Medical 300-30 mg (six) Branch tablet hours as needed for Pain (scale 4-6). Indication s: acute pain acetaminoph 2020-1 Yes 4647 1{tbl} Take 1 Un [place] en-codeine 1-27 tablet by ity of (TYLENOL-CO 00:00: mouth [place] DEINE #3) 00 every 6 Medical 300-30 mg (six) Branch tablet hours as needed for Pain (scale 4-6). Indication s: acute pain acetaminoph 2020-1 Yes 4647 1{tbl} Take 1 Un [place] en-codeine 1-27 tablet by ity of (TYLENOL-CO 00:00: mouth [place] DEINE #3) 00 every 6 Medical 300-30 mg (six) Branch tablet hours as needed for Pain (scale 4-6). Indication s: acute pain acetaminoph 2020-1 Yes 4647 1{tbl} Take 1 Un [place] en-codeine 1-27 tablet by ity of (TYLENOL-CO 00:00: mouth [place] DEINE #3) 00 every 6 Medical 300-30 mg (six) Branch tablet hours as needed for Pain (scale 4-6). Indication s: acute pain acetaminoph 2020- Yes 4647 1{tbl} Take 1 [facility] [place] en-codeine 1-27 tablet by ity of (TYLENOL-CO 00:00: mouth [place] DEINE #3) 00 every 6 Medical 300-30 mg (six) Branch tablet hours as needed for Pain (scale 4-6). Indication s: acute pain acetaminoph 2020- Yes 4647 1{tbl} Take 1 Un [place] en-codeine 1-27 tablet by ity of (TYLENOL-CO 00:00: mouth [place] DEINE #3) 00 every 6 Medical 300-30 mg (six) Branch tablet hours as needed for Pain (scale 4-6). Indication s: acute pain acetaminoph 2020- Yes 4647 1{tbl} Take 1 Un [facility] en-codeine 1-27 tablet by ity of (TYLENOL-CO 00:00: mouth [place] DEINE #3) 00 every 6 Medical 300-30 mg (six) Branch tablet hours as needed for Pain (scale 4-6). Indication s: acute pain acetaminoph 2020-1 Yes 4647 1{tbl} Take 1 Un [facility] en-codeine 1-27 tablet by ity of (TYLENOL-CO 00:00: mouth [place] DEINE #3) 00 every 6 Medical 300-30 mg (six) Branch tablet hours as needed for Pain (scale 4-6). Indication s: acute pain acetaminoph 2020- Yes 4647 1{tbl} Take 1 [facility] en-codeine 1-27 tablet by ity of (TYLENOL-CO 00:00: mouth [place] DEINE #3) 00 every 6 Medical 300-30 mg (six) Branch tablet hours as needed for Pain (scale 4-6). Indication s: acute pain Hyalgan 20 Hyalgan 20 2019-03 No 20mg C ommon mg mg -17 [facility] 00:00: - [facility] Hyalgan 20 Hyalgan 20 2019-03 No 20mg C ommon mg mg -17 Spirit 00:00: - [facility] Hyalgan 20 Hyalgan 20 2019-03 No 20mg C ommon mg mg 03-26 Spirit 00:00: - [facility] Hyalgan 20 Hyalgan 20 2019- No 20mg C ommon mg mg 03-26 Spirit 00:00: - [facility] Hyalgan 20 Hyalgan 20 2019- No 20mg C ommon mg mg 03-26 Spirit 00:00: - [facility] Hyalgan 20 Hyalgan 20 2019- No 20mg C ommon mg mg 03-26 Spirit 00:00: - [facility] Hyalgan 20 Hyalgan 20 2019- No 20mg C ommon mg mg 03-26 Spirit 00:00: - [facility] Hyalgan 20 Hyalgan 20 2019- No 20mg C ommon mg mg 03-26 Spirit 00:00: - [facility] Hyalgan 20 Hyalgan 20 2019- No 20mg C ommon mg mg 03-26 Spirit 00:00: - [facility] Hyalgan 20 Hyalgan 20 2019- No 20mg C ommon mg mg 03-26 Spirit 00:00: - [facility] Hyalgan 20 Hyalgan 20 2019- No 20mg C ommon mg mg 03-26 Spirit 00:00: - [facility] Hyalgan 20 Hyalgan 20 2019- No 20mg C ommon mg mg 03-26 Spirit 00:00: - [facility] Hyalgan 20 Hyalgan 20 2019- No 20mg C ommon mg mg 03-26 Spirit 00:00: - [facility] Hyalgan 20 Hyalgan 20 2019- No 20mg C ommon mg mg 03-26 Spirit 00:00: - [facility] Hyalgan 20 Hyalgan 20 2019- No 20mg C ommon mg mg 03-26 Spirit 00:00: - [facility] Hyalgan 20 Hyalgan 20 2019- No 20mg C ommon mg mg 03-26 Spirit 00:00: - [facility] Hyalgan 20 Hyalgan 20 2019- No 20mg C ommon mg mg 03-26 Spirit 00:00: - [facility] Hyalgan 20 Hyalgan 20 2019- No 20mg C ommon mg mg 03-26 Spirit 00:00: - [facility] Hyalgan 20 Hyalgan 20 2019- No 20mg C ommon mg mg 03-26 Spirit 00:00: - [facility] Hyalgan 20 Hyalgan 20 2019- No 20mg C ommon mg mg 03-26 Spirit 00:00: - [facility] Hyalgan 20 Hyalgan 20 2019- No 20mg C ommon mg mg 03-26 Spirit 00:00: - [facility] Hyalgan 20 Hyalgan 20 2019- No 20mg C ommon mg mg 03-26 Spirit 00:00: - [facility] Hyalgan 20 Hyalgan 20 2019- No 20mg C ommon mg mg 03-26 Spirit 00:00: - [facility] Hyalgan 20 Hyalgan 20 2019- No 20mg C ommon mg mg 03-26 Spirit 00:00: - [facility] Hyalgan 20 Hyalgan 20 2019- No 20mg C ommon mg mg 03-19 Spirit 00:00: - [facility] Hyalgan 20 Hyalgan 20 2019- No 20mg C ommon mg mg 03-19 Spirit 00:00: - [facility] Hyalgan 20 Hyalgan 20 2019- No 20mg C ommon mg mg 03-19 Spirit 00:00: - [facility] Hyalgan 20 Hyalgan 20 2019- No 20mg C ommon mg mg 03-19 Spirit 00:00: - [facility] Hyalgan 20 Hyalgan 20 2019- No 20mg C ommon mg mg 03-19 Spirit 00:00: - [facility] Hyalgan 20 Hyalgan 20 2019- No 20mg C ommon mg mg 03-19 Spirit 00:00: - [facility] Hyalgan 20 Hyalgan 20 2019- No 20mg C ommon mg mg 03-19 Spirit 00:00: - [facility] Hyalgan 20 Hyalgan 20 2019- No 20mg C ommon mg mg 10 Spirit 00:00: - [facility] Hyalgan 20 Hyalgan 20 2019- No 20mg C ommon mg mg 03-19 Spirit 00:00: - [facility] Hyalgan 20 Hyalgan 20 2019- No 20mg C ommon mg mg 10 Spirit 00:00: - [facility] Hyalgan 20 Hyalgan 20 2019- No 20mg C ommon mg mg 03-19 Spirit 00:00: - [facility] Hyalgan 20 Hyalgan 20 2019- No 20mg C ommon mg mg 10 Spirit 00:00: - [facility] Hyalgan 20 Hyalgan 20 2019- No 20mg C ommon mg mg 03-19 Spirit 00:00: - [facility] Hyalgan 20 Hyalgan 20 2019- No 20mg C ommon mg mg 03-19 Spirit 00:00: - [facility] Hyalgan 20 Hyalgan 20 2019- No 20mg C ommon mg mg 03-19 Spirit 00:00: - [facility] Hyalgan 20 Hyalgan 20 2019- No 20mg C ommon mg mg 03-19 Spirit 00:00: - [facility] Hyalgan 20 Hyalgan 20 2019- No 20mg C ommon mg mg 03-19 Spirit 00:00: - [facility] Hyalgan 20 Hyalgan 20 2019- No 20mg C ommon mg mg 03-19 Spirit 00:00: - [facility] Hyalgan 20 Hyalgan 20 2019- No 20mg C ommon mg mg 03-19 Spirit 00:00: - [facility] Hyalgan 20 Hyalgan 20 2019- No 20mg C ommon mg mg 10 Spirit 00:00: - [facility] Hyalgan 20 Hyalgan 20 2019- No 20mg C ommon mg mg 10 Spirit 00:00: - [facility] Hyalgan 20 Hyalgan 20 2019-1 No 20mg C ommon mg mg 10 Spirit 00:00: - [facility] Hyalgan 20 Hyalgan 20 2019-1 No 20mg C ommon mg mg 10 Spirit 00:00: - [facility] Hyalgan 20 Hyalgan 20 2019- No 20mg C ommon mg mg 10 Spirit 00:00: - [facility] Dose 2020-1 No Unknown - 00:00: 00 Dose 2019-1 No Unknown 1- 00:00: 00 Dose 2019- No Unknown - 00:00: 00 Bupivicaine Bupivicaine 2019- No 2.5mg Common [facility]olph Rudolph 03-12 Spirit 00:00: - [facility] Hyalgan 20 Hyalgan 20 2019- No 20mg C ommon mg mg 03-12 Spirit 00:00: - [facility] Hyalgan 20 Hyalgan 20 2019- No 20mg C ommon mg mg 03-12 Spirit 00:00: - [facility] Hyalgan 20 Hyalgan 20 2019- No 20mg C ommon mg mg 03-12 Spirit 00:00: - [facility] Bupivicaine Bupivicaine 2019- No 2.5mg Common Rudolph Rudolph 03-12 Spirit 00:00: - [facility] Hyalgan 20 Hyalgan 20 2019- No 20mg C ommon mg mg 03-12 Spirit 00:00: - [facility] 00 [facility] Kenalog Kenalog 2019- No 40mg Common (Triamcinol (Triamcinol 1-03 S pirit one) one) 00:00: - [facility] Bupivicaine Bupivicaine 2019- No Common Rudolph Rudolph -03 Spirit 00:00: - [facility] 00 [facility] Bupivicaine Bupivicaine 2019- No Common Rudolph Rudolph -03 Spirit 00:00: - [facility] Kenalog Kenalog 2019- No 40mg Common (Triamcinol (Triamcinol 1-03 S pirit one) one) 00:00: - [facility] Hyalgan 20 Hyalgan 20 2019- No 20mg C ommon mg mg 03 Spirit 00:00: - [facility] 00 [facility] Kenalog Kenalog 2019- No 40mg Common (Triamcinol (Triamcinol 1-03 S pirit one) one) 00:00: - [facility] Hyalgan 20 Hyalgan 20 2019- No 20mg C ommon mg mg 03 Spirit 00:00: - [facility] 00 [facility] Bupivicaine Bupivicaine 2020-1 No 2.5mg Common Rudolph Rudolph -03 Spirit 00:00: - [facility] 00 [facility] Kenalog Kenalog 2019- No 40mg Common (Triamcinol (Triamcinol 1-03 S pirit one) one) 00:00: - [facility] Bupivicaine Bupivicaine 2019- No 2.5mg Common Rudolph Rudolph -03 Spirit 00:00: - [facility] 00 [facility] Kenalog Kenalog 2019- No 40mg Common (Triamcinol (Triamcinol 1-03 S pirit one) one) 00:00: - [facility] Bupivicaine Bupivicaine 2019- No 2.5mg Common Rudolph Rudolph - Spirit 00:00: - [facility] 00 [facility] Kenalog Kenalog 2019- No 40mg Common (Triamcinol (Triamcinol 1-03 S pirit one) one) 00:00: - [facility] Hyalgan 20 Hyalgan 20 2019- No 20mg C ommon mg mg 03 Spirit 00:00: - [facility] Hyalgan 20 Hyalgan 20 2019- No 20mg C ommon mg mg 03 Spirit 00:00: - [facility] Bupivicaine Bupivicaine 2019- No 2.5mg Common Rudolph Rudolph - Spirit 00:00: - [facility] 00 [facility] Kenalog Kenalog 2019- No 40mg Common (Triamcinol (Triamcinol 1-03 S pirit one) one) 00:00: - [facility] 00 [facility] Kenalog Kenalog 2019- No 40mg Common (Triamcinol (Triamcinol 1-03 S pirit one) one) 00:00: - [facility] Bupivicaine Bupivicaine 2019- No 2.5mg Common Rudolph Rudolph -03 Spirit 00:00: - [facility] Hyalgan 20 Hyalgan 20 2019- No 20mg C ommon mg mg 03 Spirit 00:00: - [facility] Hyalgan 20 Hyalgan 20 2019- No 20mg C ommon mg mg 03 Spirit 00:00: - [facility] Bupivicaine Bupivicaine 2019- No 2.5mg Common Rudolph Rudolph -03 [facility] 00:00: - [facility] 00 [facility] Kenalog Kenalog 2019-03 No 40mg Common (Triamcinol (Triamcinol 1-03 S pirit one) one) 00:00: - [facility] Kenalog Kenalog 2019- No 40mg Common (Triamcinol (Triamcinol 1-03 S pirit one) one) 00:00: - [facility] Bupivicaine Bupivicaine 2019- No 2.5mg Common Rudolph Rudolph 03-12 Spirit 00:00: - [facility] Hyalgan 20 Hyalgan 20 2019- No 20mg C ommon mg mg 03-12 Spirit 00:00: - [facility] Hyalgan 20 Hyalgan 20 2019- No 20mg C ommon mg mg 03 Spirit 00:00: - [facility] Bupivicaine Bupivicaine 2019- No 2.5mg Common Rudolph Rudolph 03-12 Spirit 00:00: - [facility] 00 [facility] Kenalog Kenalog 2019- No 40mg Common (Triamcinol (Triamcinol 1-03 S pirit one) one) 00:00: - [facility] Kenalog Kenalog 2019- No 40mg Common (Triamcinol (Triamcinol 1-03 S pirit one) one) 00:00: - [facility] 00 [facility] Bupivicaine Bupivicaine 2019- No 2.5mg Common Rudolph Rudolph - Spirit 00:00: - [facility] Hyalgan 20 Hyalgan 20 2019- No 20mg C ommon mg mg 03-12 Spirit 00:00: - [facility] Hyalgan 20 Hyalgan 20 2019- No 20mg C ommon mg mg 03-12 Spirit 00:00: - [facility] Bupivicaine Bupivicaine 2019- No 2.5mg Common Rudolph Rudolph 03-12 Spirit 00:00: - [facility] 00 [facility] Kenalog Kenalog 2020- No 40mg Common (Triamcinol (Triamcinol 1-03 S pirit one) one) 00:00: - [facility] 00 [facility] Kenalog Kenalog 2019- No 40mg Common (Triamcinol (Triamcinol 1-03 S pirit one) one) 00:00: - [facility] 00 [facility] Bupivicaine Bupivicaine 2019- No 2.5mg Common Rudolph Rudolph 03-12 Spirit 00:00: - [facility] 00 [facility] Hyalgan 20 Hyalgan 20 2019- No 20mg C ommon mg mg 03-12 Spirit 00:00: - [facility] 00 [facility] Hyalgan 20 Hyalgan 20 2019- No 20mg C ommon mg mg 03-12 Spirit 00:00: - [facility] Bupivicaine Bupivicaine 2019- No 2.5mg Common Rudolph Rudolph 03-12 Spirit 00:00: - [facility] 00 [facility] Kenalog Kenalog 2019- No 40mg Common (Triamcinol (Triamcinol 1-03 S pirit one) one) 00:00: - [facility] Kenalog Kenalog 2019- No 40mg Common (Triamcinol (Triamcinol 1-03 S pirit one) one) 00:00: - [facility] Bupivicaine Bupivicaine 2019- No 2.5mg Common Rudolph Rudolph 03-12 Spirit 00:00: - [facility] 00 [facility] Hyalgan 20 Hyalgan 20 2019- No 20mg C ommon mg mg 03-12 Spirit 00:00: - [facility] 00 [facility] Hyalgan 20 Hyalgan 20 2019- No 20mg C ommon mg mg 03 Spirit 00:00: - [facility] Bupivicaine Bupivicaine 2020- No 2.5mg Common Rudolph Rudolph 03-12 Spirit 00:00: - [facility] 00 [facility] Kenalog Kenalog 2020- No 40mg Common (Triamcinol (Triamcinol 1-03 S pirit one) one) 00:00: - [facility] Kenalog Kenalog 2020- No 40mg Common (Triamcinol (Triamcinol 1-03 S pirit one) one) 00:00: - [facility] Hyalgan 20 Hyalgan 20 2019- No 20mg C ommon mg mg 03 Spirit 00:00: - [facility] 00 [facility] Kenalog Kenalog 2019- No 40mg Common (Triamcinol (Triamcinol 1-03 S pirit one) one) 00:00: - [facility] Bupivicaine Bupivicaine 2020- No Common Rudolph Rudolph - Spirit 00:00: - [facility] Bupivicaine Bupivicaine 2019- No Common Rudolph Rudolph 03-12 [facility] 00:00: - [facility] Hyalgan 20 Hyalgan 20 2019- No 20mg C ommon mg mg 03-12 Spirit 00:00: - [facility] 00 [facility] Kenalog Kenalog 2019- No 40mg Common (Triamcinol (Triamcinol 1-03 S pirit one) one) 00:00: - [facility] Hyalgan 20 Hyalgan 20 2019- No 20mg C ommon mg mg 03-12 Spirit 00:00: - [facility] 00 [facility] Kenalog Kenalog 2019- No 40mg Common (Triamcinol (Triamcinol 1-03 S pirit one) one) 00:00: - [facility] Bupivicaine Bupivicaine 2020- No Common Rudolph Rudolph - Spirit 00:00: - [facility] Bupivicaine Bupivicaine 2020- No Common Rudolph Rudolph 1-03 Spirit 00:00: - [facility] 00 [facility] Hyalgan 20 Hyalgan 20 2020- No 20mg C ommon mg mg 03-12 Spirit 00:00: - [facility] 00 [facility] Kenalog Kenalog 2020- No 40mg Common (Triamcinol (Triamcinol 1-03 S pirit one) one) 00:00: - [facility] Hyalgan 20 Hyalgan 20 2019- No 20mg C ommon mg mg 03 Spirit 00:00: - [facility] 00 [facility] Kenalog Kenalog 2020-1 No 40mg Common (Triamcinol (Triamcinol 1-03 S pirit one) one) 00:00: - [facility] Bupivicaine Bupivicaine 2019-03 No Common Rudolph Rudolph -03 Spirit 00:00: - [facility] Bupivicaine Bupivicaine 2019-03 No Common Rudolph Rudolph -03 [facility] 00:00: - [facility] Hyalgan 20 Hyalgan 20 2019-03 No 20mg C ommon mg mg 03-12 Spirit 00:00: - [facility] Kenalog Kenalog 2019-03 No 40mg Common (Triamcinol (Triamcinol 1-03 S pirit one) one) 00:00: - [facility] FINASTERIDE 2019-03- No [id number] TAKE 1 Univers 5 mg tablet 025 TABLET BY it y of 00:00: 00:00 MOUTH [place] 00 :00 EVERY DAY Medical Branch FINASTERIDE 2019-03- No [id number] TAKE 1 [facility] 5 mg tablet 0-01 04-25 TABLET BY it y of 00:00: 00:00 MOUTH [place] 00 :00 EVERY DAY Medical Branch meloxicam 2020-0 Yes 7.5mg Take [...] 00 daily. Medical Branch ibuprofen 2019-0 Yes [id number] 600mg Take 1 [facility] 600 mg 7-30 tablet by ity of tablet 00:00: mouth [place] 00 every 6 Medical (six) Branch hours as needed for Pain (scale 1-3). ibuprofen 2019-0 Yes [id number] 600mg Take 1 [facility] 600 mg 7-30 tablet by ity of tablet 00:00: mouth [place] 00 every 6 Medical (six) Branch hours as needed for Pain (scale 1-3). ibuprofen 2020-0 Yes [id number] 600mg Take 1 [facility] 600 mg 7-30 tablet by ity of tablet 00:00: mouth [place] 00 every 6 Medical (six) Branch hours as needed for Pain (scale 1-3). ibuprofen 2020-0 Yes [id number] 600mg Take 1 [facility] 600 mg 7-30 tablet by ity of tablet 00:00: mouth [place] 00 every 6 Medical (six) Branch hours as needed for Pain (scale 1-3). ibuprofen 2020-0 Yes [id number] 600mg Take 1 [facility] 600 mg 7-30 tablet by ity of tablet 00:00: mouth [place] 00 every 6 Medical (six) Branch hours as needed for Pain (scale 1-3). ibuprofen 2020-0 Yes [id number] 600mg Take 1 [facility] 600 mg 7-30 tablet by ity of tablet 00:00: mouth [place] 00 every 6 Medical (six) Branch hours as needed for Pain (scale 1-3). ibuprofen 2020-0 Yes [id number] 600mg Take 1 [facility] 600 mg 7-30 tablet by ity of tablet 00:00: mouth [place] 00 every 6 Medical (six) Branch hours as needed for Pain (scale 1-3). ibuprofen 2020-0 Yes [id number] 600mg Take 1 [facility] 600 mg 7-30 tablet by ity of tablet 00:00: mouth [place] 00 every 6 Medical (six) Branch hours as needed for Pain (scale 1-3). ibuprofen 2020-0 Yes [id number] 600mg Take 1 [facility] 600 mg 7-30 tablet by ity of tablet 00:00: mouth [place] 00 every 6 Medical (six) Branch hours as needed for Pain (scale 1-3). ibuprofen 2020-0 Yes [id number] 600mg Take 1 [facility] 600 mg 7-30 tablet by ity of tablet 00:00: mouth [place] 00 every 6 Medical (six) Branch hours as needed for Pain (scale 1-3). ibuprofen 2020-0 Yes [id number] 600mg Take 1 [facility] 600 mg 7-30 tablet by ity of tablet 00:00: mouth [place] 00 every 6 Medical (six) Branch hours as needed for Pain (scale 1-3). ibuprofen 2020-0 Yes [id number] 600mg Take 1 [facility] 600 mg 7-30 tablet by ity of tablet 00:00: mouth [place] 00 every 6 Medical (six) Branch hours as needed for Pain (scale 1-3). ibuprofen 2020-0 Yes [id number] 600mg Take 1 [facility] 600 mg 7-30 tablet by ity of tablet 00:00: mouth [place] 00 every 6 Medical (six) Branch hours as needed for Pain (scale 1-3). ibuprofen 2020-0 Yes [id number] 600mg Take 1 [facility] 600 mg 7-30 tablet by ity of tablet 00:00: mouth [place] 00 every 6 Medical (six) Branch hours as needed for Pain (scale 1-3). ibuprofen 2020-0 Yes [id number] 600mg Take 1 [facility] 600 mg 7-30 tablet by ity of tablet 00:00: mouth [place] 00 every 6 Medical (six) Branch hours as needed for Pain (scale 1-3). ibuprofen 2020-0 Yes [id number] 600mg Take 1 [facility] 600 mg 7-30 tablet by ity of tablet 00:00: mouth [place] 00 every 6 Medical (six) Branch hours as needed for Pain (scale 1-3). mupirocin 2 2020-0 Yes [id number] Apply to Univers % ointment 7-22 area(s) 3 ity of 00:00: (three) [place] 00 times Medical daily. Branch mupirocin 2 2020-0 Yes [id number] Apply to Univers % ointment 7-22 area(s) 3 ity of 00:00: (three) [place] 00 times Medical daily. Branch mupirocin 2 2020-0 Yes [id number] Apply to Univers % ointment 7-22 area(s) 3 ity of 00:00: (three) [place] 00 times Medical daily. Branch mupirocin 2 2020-0 Yes [id number] Apply to Univers % ointment 7-22 area(s) 3 ity of 00:00: (three) [place] 00 times Medical daily. Branch mupirocin 2 2020-0 Yes [id number] Apply to Univers % ointment 7-22 area(s) 3 ity of 00:00: (three) [place] 00 times Medical daily. Branch mupirocin 2 2020-0 Yes [id number] Apply to Univers % ointment 7-22 area(s) 3 ity of 00:00: (three) [place] 00 times Medical daily. Branch mupirocin 2 2020-0 Yes [id number] Apply to Univers % ointment 7-22 area(s) 3 ity of 00:00: (three) [place] 00 times Medical daily. Branch mupirocin 2 2020-0 Yes [id number] Apply to Univers % ointment 7-22 area(s) 3 ity of 00:00: (three) [place] 00 times Medical daily. Branch mupirocin 2 2020-0 Yes [id number] Apply to Univers % ointment 7-22 area(s) 3 ity of 00:00: (three) [place] 00 times Medical daily. Branch mupirocin 2 2020-0 Yes [id number] Apply to Univers % ointment 7-22 area(s) 3 ity of 00:00: (three) [place] 00 times Medical daily. Branch mupirocin 2 2020-0 Yes [id number] Apply to Univers % ointment 7-22 area(s) 3 ity of 00:00: (three) [place] 00 times Medical daily. Branch mupirocin 2 2020-0 Yes [id number] Apply to Univers % ointment 7-22 area(s) 3 ity of 00:00: (three) [place] 00 times Medical daily. Branch mupirocin 2 2020-0 Yes [id number] Apply to Univers % ointment 7-22 area(s) 3 ity of 00:00: (three) [place] 00 times Medical daily. Branch mupirocin 2 2020-0 Yes [id number] Apply to Univers % ointment 7-22 area(s) 3 ity of 00:00: (three) [place] 00 times Medical daily. Branch mupirocin 2 2020-0 Yes [id number] Apply to Univers % ointment 7-22 area(s) 3 ity of 00:00: (three) [place] 00 times Medical daily. Branch mupirocin 2 2020-0 Yes [id number] Apply to Univers % ointment 7-22 area(s) 3 ity of 00:00: (three) [place] 00 times Medical daily. Branch Potassium 2020-0 2021- No [id number] 15meq Take 15 [facility] Citrate 15 09-14 01-25 mEq by ity of mEq TbSR 00:00: 00:00 mouth 2 [place] 00 :00 (two) Medical times Branch daily. Potassium 2019-2021- No [id number] 15meq Take 15 [facility] Citrate 15 7-08 01-25 mEq by ity of mEq TbSR 00:00: 00:00 mouth 2 [place] 00 :00 (two) Medical times Branch daily. lisinopril- 2018-03- No [id number] 1{tbl} Take 1 [facility] hydrochloro 2-03 01-25 tablet by it y of thiazide 00:00: 00:00 mouth [place] 20-12.5 mg 00 :00 daily. Medical per tablet Branch lisinopril- 2018-03- No [id number] 1{tbl} Take 1 [facility] hydrochloro 2-03 -25 tablet by it y of thiazide 00:00: 00:00 mouth [place] 20-12.5 mg 00 :00 daily. Medical per tablet Branch Dose 2018-0 No Unknown 8-02 00:00: 00 Dose 2018-0 No Unknown 8-02 00:00: 00 Dose 2019-0 No Unknown 8-02 00:00: 00 atorvastati 2019-0 No 1mg n 10 mg 4-06 tablet 00:00: 00 lisinopril 2019-0 No 1mg 20 4-06 mg-hydrochl 00:00: orothiazide 00 12.5 mg tablet meclizine 2019-0 No 1mg 12.5 mg 4-06 tablet 00:00: 00 atorvastati 2019-0 No 1mg n 10 mg 4-06 tablet 00:00: 00 lisinopril 2019-0 No 1mg 20 4-06 mg-hydrochl 00:00: orothiazide 00 12.5 mg tablet meclizine 2019-0 No 1mg 12.5 mg 4-06 tablet 00:00: 00 atorvastati 2019-0 No 1mg n 10 mg 4-06 tablet 00:00: 00 lisinopril 2019-0 No 1mg 20 4-06 mg-hydrochl 00:00: orothiazide 00 12.5 mg tablet meclizine 2019-0 No 1mg 12.5 mg 4-06 tablet 00:00: 00 lisinopril 2018-0 No 1mg 20 9-12 mg-hydrochl 00:00: orothiazide 00 12.5 mg tablet lisinopril 2018-0 No 1mg 20 9-12 mg-hydrochl 00:00: orothiazide 00 12.5 mg tablet lisinopril 2018-0 No 1mg 20 9-12 mg-hydrochl 00:00: orothiazide 00 12.5 mg tablet pravastatin 2018-0 No 1mg 10 mg 9-06 tablet 00:00: 00 lisinopril 2018-0 No 1mg 20 9-06 mg-hydrochl 00:00: orothiazide 00 12.5 mg tablet pravastatin 2018-0 No 1mg 10 mg 9-06 tablet 00:00: 00 lisinopril 2018-0 No 1mg 20 9-06 mg-hydrochl 00:00: orothiazide 00 12.5 mg tablet pravastatin 2018-0 No 1mg 10 mg 9-06 tablet 00:00: 00 lisinopril 2018-0 No 1mg 20 9-06 mg-hydrochl 00:00: orothiazide 00 12.5 mg tablet lisinopril 2018-0 No 1mg 20 8-29 mg-hydrochl 00:00: orothiazide 00 12.5 mg tablet lisinopril 2018-0 No 1mg 20 8-29 mg-hydrochl 00:00: orothiazide 00 12.5 mg tablet lisinopril 2018-0 No 1mg 20 8-29 mg-hydrochl 00:00: orothiazide 00 12.5 mg tablet cyclobenzap 2018-0 No 1mg rine 10 mg 5-24 tablet 00:00: 00 cyclobenzap 2018-0 No 1mg rine 10 mg 5-24 tablet 00:00: 00 cyclobenzap 2018-0 No 1mg rine 10 mg 5-24 tablet 00:00: 00 lisinopril 2018-0 No 1mg 20 5-21 mg-hydrochl 00:00: orothiazide 00 12.5 mg tablet lisinopril 2018-0 No 1mg 20 5-21 mg-hydrochl 00:00: orothiazide 00 12.5 mg tablet lisinopril 2018-0 No 1mg 20 5-21 mg-hydrochl 00:00: orothiazide 00 12.5 mg tablet lisinopril 2018-0 No 1mg 20 2-20 mg-hydrochl 00:00: orothiazide 00 12.5 mg tablet lisinopril 2018-0 No 1mg 20 2-20 mg-hydrochl 00:00: orothiazide 00 12.5 mg tablet lisinopril 2018-0 No 1mg 20 2-20 mg-hydrochl 00:00: orothiazide 00 12.5 mg tablet lisinopril 2018-0 No 1mg 20 1-23 mg-hydrochl 00:00: orothiazide 00 12.5 mg tablet lisinopril 2018-0 No 1mg 20 1-23 mg-hydrochl 00:00: orothiazide 00 12.5 mg tablet lisinopril 2018-0 No 1mg 20 1-23 mg-hydrochl 00:00: orothiazide 00 12.5 mg tablet neomycin-po 2016-03 No 4mg/mL- lymyxin-hyd 0-02 unit/mL rocort 3.5 00:00: -% mg-10,000 00 unit/mL-1 % ear drops,susp prednisone 2016-03 No 1mg 20 mg 0-02 tablet 00:00: 00 amoxicillin 2016-03 No 1mg 500 mg 0-02 capsule 00:00: 00 lactulose 2016-03 No 30gram/ 10 gram/15 0-02 15 mL mL oral 00:00: solution 00 neomycin-po 2016-03 No 4mg/mL- lymyxin-hyd 0-02 unit/mL rocort 3.5 00:00: -% mg-10,000 00 unit/mL-1 % ear drops,susp prednisone 2016-03 No 1mg 20 mg 0-02 tablet 00:00: 00 amoxicillin 2016-03 No 1mg 500 mg 0-02 capsule 00:00: 00 lactulose 2016-03 No 30gram/ 10 gram/15 0-02 15 mL mL oral 00:00: solution 00 neomycin-po 2016-03 No 4mg/mL- lymyxin-hyd 0-02 unit/mL rocort 3.5 00:00: -% mg-10,000 00 unit/mL-1 % ear drops,susp prednisone 2016-03 No 1mg 20 mg 0-02 tablet 00:00: 00 amoxicillin 2016-03 No 1mg 500 mg 0-02 capsule 00:00: 00 lactulose 2016-03 No 30gram/ 10 gram/15 0-02 15 mL mL oral 00:00: solution 00 lisinopril No 1mg 20 7-03 mg-hydrochl 00:00: orothiazide 00 12.5 mg tablet lisinopril 2017-0 No 1mg 20 7-03 mg-hydrochl 00:00: orothiazide 00 12.5 mg tablet lisinopril 2017-0 No 1mg 20 7-03 mg-hydrochl 00:00: orothiazide 00 12.5 mg tablet lisinopril 2017-0 No 1mg 20 5-23 mg-hydrochl 00:00: orothiazide 00 12.5 mg tablet lisinopril 2017-0 No 1mg 20 5-23 mg-hydrochl 00:00: orothiazide 00 12.5 mg tablet lisinopril 2017-0 No 1mg 20 5-23 mg-hydrochl 00:00: orothiazide 00 12.5 mg tablet lisinopril 2017-0 No 1mg 20 2-14 mg-hydrochl 00:00: orothiazide 00 12.5 mg tablet lisinopril 2017-0 No 1mg 20 2-14 mg-hydrochl 00:00: orothiazide 00 12.5 mg tablet lisinopril 2017-0 No 1mg 20 2-14 mg-hydrochl 00:00: orothiazide 00 12.5 mg tablet lisinopril 2015-1 No 1mg 20 1-21 mg-hydrochl 00:00: orothiazide 00 12.5 mg tablet lisinopril 2015-1 No 1mg 20 1-21 mg-hydrochl 00:00: orothiazide 00 12.5 mg tablet lisinopril 2015-1 No 1mg 20 1-21 mg-hydrochl 00:00: orothiazide 00 12.5 mg tablet mupirocin 2 2015-0 No 1% % topical 7-27 ointment 00:00: 00 lisinopril 2016-0 No 1mg 20 7-27 mg-hydrochl 00:00: orothiazide 00 12.5 mg tablet Keflex 500 2015-0 No 1mg mg capsule - 00:00: 00 mupirocin 2 2015-0 No 1% % topical 7-27 ointment 00:00: 00 lisinopril 2015-0 No 1mg 20 7-27 mg-hydrochl 00:00: orothiazide 00 12.5 mg tablet Keflex 500 2015-0 No 1mg mg capsule 10-03 00:00: 00 mupirocin 2 2015-0 No 1% % topical 10-03 ointment 00:00: 00 lisinopril 2015-0 No 1mg 20 7-27 mg-hydrochl 00:00: orothiazide 00 12.5 mg tablet Keflex 500 2015-0 No 1mg mg capsule 10-03 00:00: 00 amoxicillin 2016-0 No 1mg 500 mg 3-24 tablet 00:00: 00 amoxicillin 2016-0 No 1mg 500 mg 3-24 tablet 00:00: 00 amoxicillin 2016-0 No 1mg 500 mg 3-24 tablet 00:00: 00 metformin 2016-0 No 1mg 500 mg 2-17 tablet 00:00: 00 metformin 2016-0 No 1mg 500 mg 2-17 tablet 00:00: 00 metformin 2016-0 No 1mg 500 mg 2-17 tablet 00:00: 00 lisinopril 2015-0 No 1mg 20 2-01 mg-hydrochl 00:00: orothiazide 00 12.5 mg tablet lisinopril 2015-0 No 1mg 20 2-01 mg-hydrochl 00:00: orothiazide 00 12.5 mg tablet lisinopril 2015-0 No 1mg 20 2-01 mg-hydrochl 00:00: orothiazide 00 12.5 mg tablet lisinopril 2014-1 No 1mg 20 2-01 mg-hydrochl 00:00: orothiazide 00 12.5 mg tablet lisinopril 2014-1 No 1mg 20 2-01 mg-hydrochl 00:00: orothiazide 00 12.5 mg tablet lisinopril 2014-1 No 1mg 20 2-01 mg-hydrochl 00:00: orothiazide 00 12.5 mg tablet lisinopril 2014-1 No 1mg 20 0-21 mg-hydrochl 00:00: orothiazide 00 12.5 mg tablet lisinopril 2014-1 No 1mg 20 0-21 mg-hydrochl 00:00: orothiazide 00 12.5 mg tablet lisinopril 2014-1 No 1mg 20 0-21 mg-hydrochl 00:00: orothiazide 00 12.5 mg tablet lisinopril 2014-0 No 1mg 20 9-15 mg-hydrochl 00:00: orothiazide 00 12.5 mg tablet lisinopril 2014-0 No 1mg 20 9-15 mg-hydrochl 00:00: orothiazide 00 12.5 mg tablet lisinopril 2014-0 No 1mg 20 9-15 mg-hydrochl 00:00: orothiazide 00 12.5 mg tablet lisinopril 2015-0 No 1mg 20 mg 3-07 tablet 00:00: 00 lisinopril 2014-0 No 1mg 20 3-07 mg-hydrochl 00:00: orothiazide 00 12.5 mg tablet lisinopril 2014-0 No 1mg 20 mg 3-07 tablet 00:00: 00 lisinopril 2015-0 No 1mg 20 mg 3-07 tablet 00:00: 00 lisinopril 2014-0 No 1mg 20 3-07 mg-hydrochl 00:00: orothiazide 00 12.5 mg tablet lisinopril 2015-0 No 1mg 20 3-07 mg-hydrochl 00:00: orothiazide 00 12.5 mg tablet Tamsulosin Tamsulosin No Tamsulosin HCl HCl HCl Flomax Flomax No Flomax Finasteride Finasteride No Finasterid e Lisinopril- Lisinopril- No Lisinopril hydroCHLORO hydroCHLORO -hydroCHLO thiazide thiazide ROthiazide Aspirin Aspirin No Aspirin Calcium Calcium No Calcium Calcium Calcium No Calcium Aspirin Aspirin No Aspirin Tamsulosin Tamsulosin No Tamsulosin HCl HCl HCl Flomax Flomax No Flomax Finasteride Finasteride No Finasterid e Aspirin Aspirin No Aspirin Lisinopril- Lisinopril- No Lisinopril hydroCHLORO hydroCHLORO -hydroCHLO thiazide thiazide ROthiazide Finasteride Finasteride No Finasterid e Tamsulosin Tamsulosin No Tamsulosin HCl HCl HCl Calcium Calcium No Calcium Flomax Flomax No Flomax Tamsulosin Tamsulosin No Tamsulosin HCl HCl HCl Aspirin Aspirin No Aspirin Flomax Flomax No Flomax Lisinopril- Lisinopril- No Lisinopril hydroCHLORO hydroCHLORO -hydroCHLO thiazide thiazide ROthiazide Finasteride Finasteride No Finasterid e Calcium Calcium No Calcium Calcium Calcium No Calcium Lisinopril- Lisinopril- No Lisinopril hydroCHLORO hydroCHLORO -hydroCHLO thiazide thiazide ROthiazide Tamsulosin Tamsulosin No Tamsulosin HCl HCl HCl Finasteride Finasteride No Finasterid e Aspirin Aspirin No Aspirin Flomax Flomax No Flomax Calcium Calcium No Calcium Lisinopril- Lisinopril- No Lisinopril hydroCHLORO hydroCHLORO -hydroCHLO thiazide thiazide ROthiazide Tamsulosin Tamsulosin No Tamsulosin HCl HCl HCl Finasteride Finasteride No Finasterid e Aspirin Aspirin No Aspirin Flomax Flomax No Flomax Calcium Calcium No Calcium Lisinopril- Lisinopril- No Lisinopril hydroCHLORO hydroCHLORO -hydroCHLO thiazide thiazide ROthiazide Tamsulosin Tamsulosin No Tamsulosin HCl HCl HCl Finasteride Finasteride No Finasterid e Aspirin Aspirin No Aspirin Flomax Flomax No Flomax Tamsulosin Tamsulosin No Tamsulosin HCl HCl HCl Calcium Calcium No Calcium Lisinopril- Lisinopril- No Lisinopril hydroCHLORO hydroCHLORO -hydroCHLO thiazide thiazide ROthiazide Tamsulosin Tamsulosin No Tamsulosin HCl HCl HCl Finasteride Finasteride No Finasterid e Aspirin Aspirin No Aspirin Flomax Flomax No Flomax Aspirin Aspirin No Aspirin Lisinopril- Lisinopril- No Lisinopril hydroCHLORO hydroCHLORO -hydroCHLO thiazide thiazide ROthiazide Finasteride Finasteride No Finasterid e Calcium Calcium No Calcium Finasteride Finasteride No Finasterid e Lisinopril- Lisinopril- No Lisinopril hydroCHLORO hydroCHLORO -hydroCHLO thiazide thiazide ROthiazide Flomax Flomax No Flomax Calcium Calcium No Calcium Aspirin Aspirin No Aspirin Tamsulosin Tamsulosin No Tamsulosin HCl HCl HCl Flomax Flomax No Flomax Tamsulosin Tamsulosin No Tamsulosin HCl HCl HCl Aspirin Aspirin No Aspirin Lisinopril- Lisinopril- No Lisinopril hydroCHLORO hydroCHLORO -hydroCHLO thiazide thiazide ROthiazide Finasteride Finasteride No Finasterid e Calcium Calcium No Calcium Flomax Flomax No Flomax Tamsulosin Tamsulosin No Tamsulosin HCl HCl HCl Aspirin Aspirin No Aspirin Lisinopril- Lisinopril- No Lisinopril hydroCHLORO hydroCHLORO -hydroCHLO thiazide thiazide ROthiazide Finasteride Finasteride No Finasterid e Calcium Calcium No Calcium Flomax Flomax No Flomax Lisinopril- Lisinopril- No Lisinopril hydroCHLORO hydroCHLORO -hydroCHLO thiazide thiazide ROthiazide Immunizations Ordered Filled Immunization Date Status Comments Sourc e Immunization Name Name Influenza Virus 2021-11-28 Completed [facility] [place] [facility] 65[facility] Influenza Virus 2021-11-28 Completed [facility] [place] [facility] 65+ Influenza Virus 2021-11-28 Completed [facility] Vaccine[facility]quad 00:00:[facility] [place] [facility] 65+ Influenza Virus 2021-11-28 Completed [facility] Vaccine[facility]quad 00:00:[facility] [place] [facility] 65+ Influenza Virus 2021-11-28 Completed [facility] Vaccine,quad 00:00:00 [place] [facility] 65+ Influenza Virus 2021-11-28 Completed [facility]quad 00:00[facility] [place] [facility] 65+ Tdap 2017-06-23 Completed 00:00:00 Tdap 2017-06-23 Completed 00:00:00 Tdap 2017-06-23 Completed 00:00:00 Vital Signs Vital Name Observation Time Observation Value Comments Source height 2022-01-07 08:00:00 65 [in_i] Common [facility] weight 2022-01-07 08:00:00 237.2 [lb_av] Common [facility] temperature 2022-01-07 08:00:00 97.2 [degF] Common S pirit [facility] bmi 2022-01-07 08:00:00 39.47 kg/m2 Common S [facility] blood pressure 2022-01-07 08:00:00 126 mm[Hg] [facility] - systolic [facility] blood pressure 2022-01-07 08:00:00 74 mm[Hg] Common [facility] - diastolic [facility] Systolic blood 2021-12-27 15:53:00 165 mm[Hg] Lonnie pickard of pressure [facility] Diastolic blood 2021-12-27 15:53:00 90 mm[Hg] Unive rsity of pressure [facility] Heart rate 2021-12-27 15:53:00 66 /min Universi ty of [facility] Body temperature 2021-12-27 15:53:00 36.28 Traci Univ ersity of [facility] Respiratory rate 2021-12-27 15:53:00 20 /min Univ ersity of [facility] Body height 2021-12-27 15:53:00 165.1 cm Universi ty of [facility] Body weight 2021-12-27 15:53:00 109.408 kg Universi ty of [facility] BMI 2021-12-27 15:53:00 40.14 kg/m2 Universi ty of [facility] Systolic blood 2021-11-28 20:24:00 140 mm[Hg] Univer sity of pressure [facility] Diastolic blood 2021-11-28 20:24:00 74 mm[Hg] Unive rsity of pressure [facility] Heart rate 2021-11-28 20:24:00 85 /min Universi ty of [facility] Body temperature 2021-11-28 20:24:00 36.72 Traci Univ ers[facility] of [facility] Body height 2021-11-28 20:24:00 165.1 cm Universi ty of [facility] Body weight 2021-11-28 20:24:00 105.688 kg Universi ty of [facility] BMI 2021-11-28 20:24:00 38.77 kg/m2 Universi ty [facility] Oxygen saturation in 2021-11-28 20:24:00 97 /min [facility] Arterial blood by [facility] Pulse oximetry Branch height 2021-10-08 08:00:00 65 [in_i] [facility] weight 2021-10-08 08:00:00 242 [lb_av] [facility] temperature 2021-10-08 08:00:00 97.2 [degF] [facility] bmi 2021-10-08 08:00:00 40.27 kg/m2 [facility] blood pressure 2021-10-08 08:00:00 136 mm[Hg] [facility] blood pressure 2021-10-08 08:00:00 84 mm[Hg] [facility] - [facility] Systolic blood 2021-08-03 20:31:00 151 mm[Hg] Univer sity of pressure [facility] Diastolic blood 2021-08-03 20:31:00 91 mm[Hg] Unive rsity of pressure [facility] Heart rate 2021-08-03 20:31:00 88 /min [facility] Oxygen saturation in 2021-08-03 20:31:00 96 /min [facility] Arterial blood by [facility] Pulse oximetry Branch Body height 2021-08-03 20:30:00 165.1 cm [facility] Body weight 2021-08-03 20:30:00 105.552 kg [facility] BMI 2021-08-03 20:30:00 38.72 kg/m2 [facility] height 2021-06-21 09:00:00 65 [in_i] Common [facility] weight 2021-06-21 09:00:00 240 [lb_av] [facility] temperature 2021-06-21 09:00:00 97.1 [degF] [facility] bmi 2021-06-21 09:00:00 39.93 kg/m2 Common [facility] blood pressure 2021-06-21 09:00:00 126 mm[Hg] [facility] blood pressure 2021-06-21 09:00:00 82 mm[Hg] [facility] - [facility] height 2021-06-14 08:45:00 65 [in_i] Common [facility] weight 2021-06-14 08:45:00 240 [lb_av] Common [facility] temperature 2021-06-14 08:45:00 96.8 [degF] Common [facility] bmi 2021-06-14 08:45:00 39.93 kg/m2 Common S pirit - [facility] blood pressure 2021-06-14 08:45:00 137 mm[Hg] [facility] - systolic [facility] blood pressure 2021-06-14 08:45:00 81 mm[Hg] [facility] - diastolic [facility] height 2021-06-07 10:15:00 65 [in_i] Common S pirit - [facility] weight 2021-06-07 10:15:00 240 [lb_av] Common S pirit [facility] temperature 2021-06-07 10:15:00 97.7 [degF] Common S pirit [facility] bmi 2021-06-07 10:15:00 39.93 kg/m2 Common S pirit - [facility] blood pressure 2021-06-07 10:15:00 144 mm[Hg] [facility] blood pressure 2021-06-07 10:15:00 84 mm[Hg] [facility] diastolic [facility] height 2021-05-14 10:30:00 65 [in_i] Common S pirit [facility] weight 2021-05-14 10:30:00 240 [lb_av] Common S pirit [facility] temperature 2021-05-14 10:30:00 97.9 [degF] [facility] bmi 2021-05-14 10:30:00 39.93 kg/m2 Common S pirit - [facility] blood pressure 2021-05-14 10:30:00 156 mm[Hg] [facility] blood pressure 2021-05-14 10:30:00 90 mm[Hg] [facility] - [facility] Systolic blood 2021-04-03 17:05:00 190 mm[Hg] Univer sity of [facility] Diastolic blood 2021-04-03 17:05:00 78 mm[Hg] Unive rsity of pressure [facility] Heart rate 2021-04-03 17:05:00 90 /min Universi ty [facility] Body temperature 2021-04-03 17:04:00 [facility].67 [facility] 2021-04-03 17:04:00 165.1 cm [facility] Body weight 2021-04-03 17:04:00 109.589 kg [facility] BMI 2021-04-03 17:04:00 40.20 kg/m2 [facility] BP Systolic 2022-01-29 09:44:00 141 mm[Hg] BP Diastolic 2022-01-29 09:44:00 80 mm[Hg] Weight Measured 2022-01-29 09:44:00 242.60 pounds Height Measured 2022-01-29 09:44:00 65.00 inches Body Temperature 2022-01-29 09:44:00 98.20 degrees Heart Rate 2022-01-29 09:44:00 74.00 /min Respiratory Rate 2022-01-29 09:44:00 24.00 /min BP Systolic 2021-11-29 11:17:00 132 mm[Hg] BP Diastolic 2021-11-29 11:17:00 75 mm[Hg] Weight Measured 2021-11-29 11:17:00 234.20 pounds Height Measured 2021-11-29 11:17:00 65.00 inches Body Temperature 2021-11-29 11:17:00 97.70 degrees Heart Rate 2021-11-29 11:17:00 83.00 /min Respiratory Rate 2021-11-29 11:17:00 BP Systolic 2021-10-08 09:53:00 131 mm[Hg] BP Diastolic 2021-10-08 09:53:00 67 mm[Hg] Weight Measured 2021-10-08 09:53:00 244.00 pounds Height Measured 2021-10-08 09:53:00 65.00 inches Body Temperature 2021-10-08 09:53:00 98.00 degrees Heart Rate 2021-10-08 09:53:00 85.00 /min Respiratory Rate 2021-10-08 09:53:00 16.00 /min BP Systolic 2021-05-14 15:18:00 133 mm[Hg] BP Diastolic 2021-05-14 15:18:00 69 mm[Hg] Weight Measured 2021-05-14 15:18:00 240.00 pounds Height Measured 2021-05-14 15:18:00 65.00 inches Body Temperature 2021-05-14 15:18:00 98.40 degrees Heart Rate 2021-05-14 15:18:00 78.00 /min Respiratory Rate 2021-05-14 15:18:00 21.00 /min BP Systolic 2020-08-01 17:34:00 138 mm[Hg] BP Diastolic 2020-08-01 17:34:00 74 mm[Hg] Weight Measured 2020-08-01 17:34:00 235.40 pounds Height Measured 2020-08-01 17:34:00 65.00 inches Body Temperature 2020-08-01 17:34:00 98.50 degrees Heart Rate 2020-08-01 17:34:00 75.00 /min Respiratory Rate 2020-08-01 17:34:00 16.00 /min BP Systolic 2020-07-11 10:25:00 145 mm[Hg] BP Diastolic 2020-07-11 10:25:00 76 mm[Hg] Weight Measured 2020-07-11 10:25:00 234.40 pounds Height Measured 2020-07-11 10:25:00 65.00 inches Body Temperature 2020-07-11 10:25:00 98.30 degrees Heart Rate 2020-07-11 10:25:00 71.00 /min Respiratory Rate 2020-07-11 10:25:00 21.00 /min BP Systolic 2020-01-14 09:29:00 155 mm[Hg] BP Diastolic 2020-01-14 09:29:00 88 mm[Hg] Weight Measured 2020-01-14 09:29:00 240.80 pounds Height Measured 2020-01-14 09:29:00 65.00 inches Body Temperature 2020-01-14 09:29:00 98.70 degrees Heart Rate 2020-01-14 09:29:00 77.00 /min Respiratory Rate 2020-01-14 09:29:00 16.00 /min BP Systolic 2018-06-13 11:47:00 121 mm[Hg] BP Diastolic 2018-06-13 11:47:00 79 mm[Hg] Weight Measured 2018-06-13 11:47:00 240.80 pounds Height Measured 2018-06-13 11:47:00 65.00 inches Body Temperature 2018-06-13 11:47:00 98.60 degrees Heart Rate 2018-06-13 11:47:00 77.00 /min Respiratory Rate 2018-06-13 11:47:00 18.00 /min BP Systolic 2017-11-13 15:52:00 130 mm[Hg] BP Diastolic 2017-11-13 15:52:00 73 mm[Hg] Weight Measured 2017-11-13 15:52:00 193.00 pounds Height Measured 2017-11-13 15:52:00 65.00 inches Body Temperature 2017-11-13 15:52:00 98.40 degrees Heart Rate 2017-11-13 15:52:00 84.00 /min Respiratory Rate 2017-11-13 15:52:00 18.00 /min BP Systolic 2017-07-31 16:09:00 151 mm[Hg] BP Diastolic 2017-07-31 16:09:00 81 mm[Hg] Weight Measured 2017-07-31 16:09:00 236.00 pounds Height Measured 2017-07-31 16:09:00 65.00 inches Body Temperature 2017-07-31 16:09:00 98.30 degrees Heart Rate 2017-07-31 16:09:00 76.00 /min Respiratory Rate 2017-07-31 16:09:00 12.00 /min BP Systolic 2017-06-20 11:06:00 125 mm[Hg] BP Diastolic 2017-06-20 11:06:00 75 mm[Hg] Weight Measured 2017-06-20 11:06:00 Height Measured 2017-06-20 11:06:00 Body Temperature 2017-06-20 11:06:00 Heart Rate 2017-06-20 11:06:00 Respiratory Rate 2017-06-20 11:06:00 BP Systolic 2017-06-20 10:12:00 86 mm[Hg] BP Diastolic 2017-06-20 10:12:00 64 mm[Hg] Weight Measured 2017-06-20 10:12:00 233.40 pounds Height Measured 2017-06-20 10:12:00 65.00 inches Body Temperature 2017-06-20 10:12:00 98.70 degrees Heart Rate 2017-06-20 10:12:00 81.00 /min Respiratory Rate 2017-06-20 10:12:00 18.00 /min Procedures Procedure Date / Time Performing Clinician Source Performed FLU 2021-11-28 21:06:20 [facility] [place] [facility]0 [facility] .5 ML,IM,ADJUVANTED,QUAD(F LUAD) CONSENT/REFUSAL FOR 2021-11-28 20:16:52 [facility] MEDICAL 2021-10-11 05:01:00 Doctor Unassigned, No Univer [facility] RELEASE/CLEARANCE FORMS Name Medical Branch [id number] Ecg Routine Ecg 2016-01-29 00:00:00 W/least 12 Lds W/i r 29044 Debridement Open 2015-10-04 00:00:00 Wound 20 Sq Cm Plan of Care Planned Activity Planned Date Details Comments Source Goal Plan of Care Note [code = 46094-8] Goal Plan of Care Note [code = 07884-4] Goal Plan of Care Note [code = 89088-2] Goal Plan of Care Note [code = 34063-3] Goal Plan of Care Note [code = 93023-8] Goal Plan of Care Note [code = 36829-6] Goal Plan of Care Note [code = 72433-2] Goal Plan of Care Note [code = 21860-5] Goal Plan of Care Note [code = 52972-3] Goal Plan of Care Note [code = 24158-7] Goal Plan of Care Note [code = 20351-2] Goal Plan of Care Note [code = 87938-1] Goal Plan of Care Note [code = 13297-5] Goal Plan of Care Note [code = 97138-2] Goal Plan of Care Note [code = 38509-4] Goal Plan of Care Note [code = 01122-6] Goal Plan of Care Note [code = 20219-1] Goal Plan of Care Note [code = 50513-4] Goal Plan of Care Note [code = 39286-6] Goal Plan of Care Note [code = 31374-7] Goal Plan of Care Note [code = 89789-9] Goal Plan of Care Note [code = 24043-8] Goal Plan of Care Note [code = 60377-7] Goal Plan of Care Note [code = 73446-0] Goal Plan of Care Note [code = 23204-7] Goal Plan of Care Note [code = 30979-3] Goal Plan of Care Note [code = 02992-6] Goal Plan of Care Note [code = 25236-3] Goal Plan of Care Note [code = 78344-0] Goal Plan of Care Note [code = 86692-9] Goal Plan of Care Note [code = 70429-9] Goal Plan of Care Note [code = 45022-1] Goal Plan of Care Note [code = 48300-8] Goal Plan of Care Note [code = 94313-1] Goal Plan of Care Note [code = 42089-3] Goal Plan of Care Note [code = 22042-3] Goal Plan of Care Note [code = 29985-5] Goal Plan of Care Note [code = 75402-7] Goal Plan of Care Note [code = 50789-4] Goal Plan of Care Note [code = 29319-0] Goal Plan of Care Note [code = 57135-0] Goal Plan of Care Note [code = 32773-2] Goal Plan of Care Note [code = 52551-8] Goal Plan of Care Note [code = 33615-5] Goal Plan of Care Note [code = 72748-9] Goal Plan of Care Note [code = 60247-3] Goal Plan of Care Note [code = 34119-9] Goal Plan of Care Note [code = 66743-7] Goal Plan of Care Note [code = 68289-3] Goal Plan of Care Note [code = 34786-5] Goal Plan of Care Note [code = 53976-6] Goal Plan of Care Note [code = 98689-2] Goal Plan of Care Note [code = 22583-8] Goal Plan of Care Note [code = 94744-6] Goal Plan of Care Note [code = 35815-1] Goal Plan of Care Note [code = 13110-6] Goal Plan of Care Note [code = 82426-2] Goal Plan of Care Note [code = 15023-0] Goal Plan of Care Note [code = 56797-7] Goal Plan of Care Note [code = 75302-3] Goal Plan of Care Note [code = 77526-9] Goal Plan of Care Note [code = 79508-8] Goal Plan of Care Note [code = 89758-6] Goal Plan of Care Note [code = 64516-6] Goal Plan of Care Note [code = 25596-1] Goal Plan of Care Note [code = 99576-8] Goal Plan of Care Note [code = 69449-5] Goal Plan of Care Note [code = 52654-1] Goal Plan of Care Note [code = 15022-7] Goal Plan of Care Note [code = 54504-5] Goal Plan of Care Note [code = 36923-4] Goal Plan of Care Note [code = 95701-1] Goal Plan of Care Note [code = 63490-3] Goal Plan of Care Note [code = 08036-0] Goal Plan of Care Note [code = 59867-4] Goal Plan of Care Note [code = 42846-0] Goal Plan of Care Note [code = 17377-1] Goal Plan of Care Note [code = 98416-7] Goal Plan of Care Note [code = 84183-7] Encounters Start End Encounter Admission Attending Care Care Encounter Source Date/Time Date/Time Type Type Clinicians Facility Department ID 2022-02-11 Outpatient [facility] [id number] Common 08:16:02 [facility] 2022-02-07 Outpatient [facility] [id number] Common 09:12:01 [facility] 2022-01-16 Outpatient [facility] [id number] Common 13:55:01 [facility] 2021-10-03 Outpatient [facility] [id number] Common 10:07:01 [facility] 2021-05-31 Outpatient [facility] [id number] Common 16:32:01 [facility] 2021-05-14 Outpatient Dmitry, [facility] [id number] Common 10:45:04 Ofe [facility] 2021-04-04 Outpatient Ofe Leon [facility] [id number] - Common 11:59:56 [id number] [facility] 2021-04-04 Outpatient Ofe Leon [facility] [id number] - Common 11:49:40 [id number] [facility] 2021-01-06 Outpatient [facility] [id number] Univers 09:34:02 GORDO jorden [facility] 2021-01-06 Emergency [facility] [id number] Univers 07:57:22 [facility] 2022-12-31 2022-12-31 Outpatient R AMANDA, [facility] [id number] Univers 10:30:00 10:30:00 ALLYN [facility] 2022-02-18 2022-02-18 (TEL) [facility] [id number] Co mmon 00:00:00 00:00:00 [facility] 2022-02-06 2022-02-06 Outpatient SFA SFA [id number] Ravindra 10:35:37 10:35:37 [id number] [place] 2022-02-04 2022-02-04 Outpatient SFA SFA [id number] Ravindra 13:27:06 13:27:06 [id number] [place] 2022-01-29 2022-01-29 Outpatient SFA SFA [id number] Ravindra 09:44:33 09:44:33 [address] [place] 2022-01-29 2022-01-29 Outpatient [id number] 00:00:00 00:00:00 Visit [id number] 2022-01-07 2022-01-07 OFFICE [facility] [id number] Co mmon 00:00:00 00:00:00 VISIT [facility] 4 [facility] 2021-12-27 2021-12-27 Outpatient R [facility] [id number] Univers 10:45:00 11:34:18 GORDO jorden [facility] 2021-12-27 2021-12-27 Office LUIS FERNANDO Quintana [id number] Univers 10:45:00 11:34:[address] [facility] [id number] i ty of [facility] [id number] Andrea as [id number] [address] 2021-12-20 2021-12-20 (TEL) [facility] [facility] [id number] Co mmon 00:00:00 00:00:00 [facility] 2021-12-10 2021-12-10 (TEL) STLMLC STLC [id number] Co mmon 00:00:00 00:00:00 [facility] 2021-12-01 2021-12-01 LUIS FERNANDO [place] 1.2.840.114 [id number] [facility] 00:00:00 00:00:00 [facility] 350.1.13.10 i ty of [facility] 4.2.7.2.686 Andrea as [phone] [address] 2021-11-29 2021-11-29 Outpatient [id number]- [id number]-[id number] 00:00:00 00:00:00 Visit [id number]-b [id number] 9505bcafe 5bcafe 2021-11-28 2021-11-28 Outpatient R [facility] [id number] Univers 15:20:00 16:10:48 ALMA ROSA geronimo o f [facility] 2021-11-28 2021-11-28 Office Herbert [facility] 1.2.840.114 [id number] Univers 15:20:00 15:40:00 Visit Alma Rosa PRING[place] 350.1.13.10 it[place] [phone] Mt dic[address] 2021-11-28 2021-11-28 Orders Doctor DEDRICK 1.2.840.114 [id number] Univers 00:00:00 00:00:00 Only Unassigned, MJ 350.1.13.[address] [place] [facility] 4.2.7.2.686 Andrea as [phone] [address] 2021-11-27 2021-11-27 Telephone [facility] 1.2.583.935 [id number] Univers 00:00:00 00:00:00 Alma Rosa HAR[place] 350.1.13.10 ity of [facility] [place] [phone] Mt dic[address] 2021-10-15 2021-10-15 (TEL) [facility] [id number] Co mmon 00:00:00 00:00:00 [facility] 2021-10-11 2021-10-11 Telephone [facility] 1.2.551.805 [id number] Univers 00:00:00 00:00:00 Alma Rosa [place] 350.1.13.10 ity of [facility] [place] [phone] Mt dicor NAL [address] [place] [address] 2021-10-11 2021-10-11 Orders Doctor DEDRICK 1.2.840.114 [id number] Univers 00:00:00 00:00:00 Only Unassigned, MJ 350.1.13.[address] [place] [facility] 4.2.7.2.686 Andrea as [phone] [address] 2021-10-08 2021-10-08 Outpatient [id number]- [id number]-[id number] 00:00:00 00:00:00 Visit [id number] -[id number] [id number] 2021-10-08 2021-10-08 OFFICE [facility] [id number] Co mmon 00:00:00 00:00:00 VISIT Jose ESTAB PT - [facility] LEVEL 4 [facility] 2021-09-20 2021-09-20 LUIS FERNANDO Figueroa 1.2.840.114 [id number] Univers 00:00:00 00:00:00 Allyn Nathaly Y HEALTH 350.1.13.10 ity [place] [phone] [address] 2021-08-03 2021-08-03 Outpatient R [facility] [id number] Univers 15:20:00 15:43:58 DYLAN ity o f [facility] 2021-08-03 2021-08-03 [facility] 1.2.840.114 [id number] Univers 15:20:00 15:43:58 Care Dylan [facility] 350.1.13.10 i ty of [place] 4.2.7.2.686 Andrea as LAURA?BLEA [phone] [address] MEDICAL OFFICE BUILDING 2021-06-21 2021-06-21 (IN/ASP) STLMLC STLMLC [id number] C ommon 00:00:00 00:00:00 INJ ASP [facility] 2021-06-14 2021-06-14 (IN/ASP) STLMLC STLMLC [id number] C ommon 00:00:00 00:00:00 INJ ASP [facility] 2021-06-07 2021-06-07 (IN/ASP) STLMLC STLMLC [id number] C ommon 00:00:00 00:00:00 INJ ASP [facility] 2021-05-29 2021-05-29 (TEL) STLMLC STLMLC [id number] Co mmon 00:00:00 00:00:00 [facility] 2021-05-24 2021-05-24 (TEL) STLMLC STLMLC [id number] Co mmon 00:00:00 00:00:00 [facility] 2021-05-14 2021-05-14 OFFICE STLMLC STLMLC [id number] Co mmon 00:00:00 00:00:00 VISIT [facility] PT - CHI LEVEL 4 [facility] 2021-04-03 2021-04-03 Office LUIS FERNANDO Webber 1.2.840.114 [id number] Univers 11:30:00 12:00:00 Visit Allyn ENRIQUEZ 350.1.13.10 ity of [facility] [place]2.7.2.[place] [phone] [facility] [address] 2021-04-03 2021-04-03 Outpatient R [facility] [id number] Univers 11:30:00 [facility]:30[facility]00 [facility] 2021-04-03 2021-04-03 Outpatient R [facility] [id number] Univers 11:30:00 11:30:00 [facility] 2021-03-20 2021-03-20 Outpatient R [facility] [id number] Univers 13:30:00 13:30:00 [facility] 2021-03-20 2021-03-20 Outpatient R [facility] [id number] Univers 13:30:00 13:30:00 [facility] 2021-01-30 2021-01-30 Outpatient Gabrielle [facility] [id number] Univers 11:30:00 11:30:00 [facility] 2021-01-15 2021-01-15 Nurse Visit, [facility] Dermatology Nurse UNIVE RSIT 1.2.840.114 [id number] Univers 11:32:36 12:04:58 Visit Madison Chiu 350.1.13.10 ity of [place] [id number] [facility] [address] 2021-01-15 2021-01-15 Outpatient Gabrielle [facility] [id number] Univers 11:30:00 12:04:58 MADISON [facility] 2021-01-15 2021-01-15 Clinic Unger [facility] 1.2.202.559 [id number] Univers 00:00:00 00:00:00 Assessment Jorden Hill 350.1.13.10 ity of [facility] [place]2.7.2.[place] [phone] [facility] [address] 2021-01-03 2021-01-03 Outpatient Gabrielle [facility] [id number] Univers 10:00:00 11:09:39 [facility] 2021-01-03 2021-01-03 Outpatient R [facility]URICIO [facility] [id number] Univers 10:00:00 11:09:39 DARRIUS geronimo [facility] 2021-01-03 2021-01-03 Office Michael Drake [facility] 1 .2.840.114 [id number] Univers 09:43:09 11:09:39 Visit [place]well, Darrius Abad HEALTH 350.1.13.1 0 it[place] [id number] [address] 2021-01-03 2021-01-03 Office Michael Drake UNIVERS 1 .2.840.114 [id number] Univers 09:43:09 11:09:39 Visit Darrius Boswell HEALTH 350.1.13.1 0 it[place] [phone] [address] 2021-01-03 2021-01-03 Orders Doctor DEDRICK 1.2.840.114 [id number] Univers 00:00:00 00:00:00 Only Unassigned, MJ 350.1.13.10 ity of [place] [facility] 4.2.7.2.686 Andrea as [phone] [address] 2020-12-25 2020-12-25 Office Michael Drake [facility] 1 .2.840.114 [id number] Univers 09:43:59 10:52:31 Visit Madison Chiu HEALTH 350.1.13.10 ity [place] [id number] [address] 2020-12-25 2020-12-25 Outpatient Gabrielle [facility] [id number] Univers 09:45:00 09:45:00 MADISON geronimo [facility] 2020-12-21 2020-12-21 Fiber Locking Supervisor [facility] UNIVERSIT 1.2.840.114 [id number] Univers 10:07:59 10:13:50 Visit Gordo Quintana HEALTH 350. 1.13.10 ity [place] [phone] [address] 2020-12-21 2020-12-21 Outpatient R [facility] [id number] Univers 09:30:00 10:05:43 GORDO geronimo [facility] 2020-12-21 2020-12-21 Office GERBER QuintanaIT 1.2.840.114 [id number] Univers 09:26:24 10:05:43 Visit Gordo Martinez [facility] 350.1.13.10 i ty of [facility] 4.2.7.2.686 Andrea [phone] [facility] [address] 2020-12-21 2020-12-21 Outpatient R [facility] [id number] Univers 09:30:00 09:30:00 GORDO geronimo [facility] 2020-08-04 2020-08-04 Outpatient R [facility] [id number] Univers 15:00:00 15:00:00 ALMA ROSA geronimo o f [facility] 2020-06-26 2020-06-26 Outpatient STLMLC STLMLC [id number] Common 00:00:00 00:00:00 [facility] 2020-03-22 2020-03-22 [facility] [id number] Univers 13:45:00 14:16:27 GORDO geronimo [facility] 2020-03-22 2020-03-22 Outpatient R [facility] [id number] Univers 13:45:00 13:45:00 GORDO jorden [facility] 2020-02-14 2020-02-14 Outpatient R [facility] [id number] Univers 08:00:00 08:00:00 [facility] 2020-02-04 2020-02-04 [facility] [id number] [id number] Univers 12:41:00 16:16:00 Salomón Pringle 350.1.13.10 i ty of [place] 4.2.7.2.686 [facility] [phone] [facility] [address] 2020-02-04 2020-02-04 Emergency [facility] ERT [id number] Univers 12:41:00 16:16:00 SALOMÓN ity of [facility] 2020-02-04 2020-02-04 Orders Doctor DEDRICK 1.2.840.114 [id number] Univers 00:00:00 00:00:00 Only Unassigned, MJ 350.1.13.10 ity of [facility] 4.2.7.2.686 Andrea as [id number] [address] 2020-01-25 2020-01-25 Outpatient STLMLC STLMLC [id number] Common 00:00:00 00:00:00 [facility] 2020-01-18 2020-01-18 Outpatient STLMLC STLMLC [id number] Common 00:00:00 00:00:00 [facility] 2020-01-11 2020-01-11 Outpatient STLMLC STLMLC [id number] Common 00:00:00 00:00:00 [facility] 2019-12-30 2019-12-30 [facility] 1.2.840.114 [id number] Univers 00:00:00 00:00:00 [facility] 350.1.13.10 i ty of [facility] 4.2.7.2.686 Andrea as [phone] [address] 2019-12-28 2019-12-28 [facility] 1.2.840.114 [id number] Univers 00:00:00 00:00:00 [facility] 350.1.13.10 i ty of [facility] 4.2.7.2.686 Andrea as [phone] [address] 2019-12-17 2019-12-17 Outpatient STLMLC STLMLC [id number] Common 00:00:00 00:00:00 [facility] 2019-12-07 2019-12-07 Outpatient STLMLC STLMLC [id number] Common 00:00:00 00:00:00 [facility] 2019-12-06 2019-12-06 Outpatient STLMLC STLMLC [id number] Common 00:00:00 00:00:00 [facility] 2019-10-19 2019-10-19 Outpatient Gabrielle CHÁVEZ DCJENNA [facility] [id number] Univers 16:15:00 16:15:00 CAMILLA geronimo [facility] 2019-10-07 2019-10-07 Office [facility] 1.2.123.073 [id number] Univers 13:26:00 15:20:21 Visit Camilla Pringle 350.1.13.10 i ty of [place] [phone] Mt [facility] 2019-10-07 2019-10-07 Out[facility] [id number] Univers 14:00:00 14:00:00 CAMILLA geronimo [facility] 2019-10-07 2019-10-07 Orders Doctor DEDRICK 1.2.840.114 [id number] Univers 00:00:00 00:00:00 Only Unassigned, MJ 350.1.13.[address] [place] [facility] 4.2.7.2.686 Andrea as [phone] [address] 2019-09-30 2019-09-30 Office [facility] 1.2.758.578 [id number] Univers 09:34:42 10:08:28 Visit Camilla Pringle 350.1.13.10 i ty [place] [phone] Mt dical nal [address] [place] [address] 2019-09-30 2019-09-30 Outpatient [facility] [id number] Univers 10:00:00 10:00:00 CAMILLA geronimo [facility] 2019-09-29 2019-09-29 Urgent Provider, [facility] 1.2.840.114 [id number] Univers 11:52:22 12:18:56 Care John Galvan 350.1.13.10 ity of [place] 4.2.7.2.686 Andrea as Professio [phone] Mt dical [facility] [address] 2019-09-29 2019-09-29 Outpatient R [facility] [id number] Univers 11:40:00 11:40:00 JOHN browningjorden [facility] 2019-09-23 2019-09-23 Laboratory Lab, Adc Fam Pob I [facility] 1.2. 840.114 [id number] Univers 14:43:14 15:03:14 Only Aman Claribel [facility] 350.1.13.10 ity of [place] 4.2.7.2.686 Andrea as Professio [phone] Mt dical nal [address] 2019-09-23 2019-09-23 Outpatient R [facility] [id number] Univers 15:00:00 15:00:00 CLARIBEL geronimo [facility] 2019-09-15 2019-09-15 Outpatient R [facility] [id number] Univers 15:15:00 15:15:00 GORDO jorden [facility] 2019-09-15 2019-09-15 Office Titoabdon [facility] 1.2.840.114 [id number] Univers 14:34:47 14:49:[address] [facility] 350.1.13.10 i ty of [facility] 4.2.7.2.686 Andrea as [phone] [address] 2019-09-01 2019-09-01 [facility]phone [facility] 1.2.840.114 [id number] Univers 00:00:00 00:00:00 [facility] 350.1.13.10 i ty of [facility] 4.2.7.2.686 Andrea as [phone] [address] 2019-08-12 2019-08-12 Outpatient R [facility] [id number] Univers 13:30:00 13:30:00 GORDO [facility] 2019-02-09 2019-02-09 Emergency X SINGER [facility] ERT [id number] Univers 07:16:19 09:02:00 CHRISTIAN jorden [facility] 2018-09-29 2018-09-29 Telephone [facility] 1.2.993.726 [id number] Univers 00:00:00 00:00:00 Naila Pringle 350.1.13.10 ity of [place] [phone] Me dical nal [address] [facility] 2007-08-10 2007-08-10 Outpatient [facility] [id number] Univers 00:00:00 15:08:00 8 [facility] 2007-08-06 2007-08-06 Outpatient [facility] [id number] Univers 00:00:00 10:00:00 6 [facility] 2007-07-22 2007-07-22 Outpatient O LADONNA [facility] DSU [id number] Univers 00:01:00 23:59:00 BECKY 5 [facility] 2007-06-16 2007-06-16 Outpatient [facility] [id number] Univers 00:00:00 11:16:00 7 [facility] Results Test Description Test Time Test Comments Results Result Comments Source COMPREHENSIVE METABOLIC PANEL 2021-11-30 06:51:15 Test Item Value Reference Range Interpretation Comme nts GLUCOSE (test code = 2217) 109 MG/DL 70-99 H BUN (test code = 2208) 19 MG/DL 8-23 CREATININE (test code = 0.99 MG/DL 0.80-1.40 2213) eGFR (2020 CKD-EPI) (test 83 ML/MIN/1.73 >60 code = 79908) CALC BUN/CREAT (test code = 19 RATIO -2234) SODIUM (test code = 2231) 140 MEQ/L 133-146 POTASSIUM (test code = 2228) 4.7 MEQ/L 3.5-5.4 CHLORIDE (test code = 2215) 101 MEQ/L 95-107 CARBON DIOXIDE (test code = 24 MEQ/L 2205) CALCIUM (test code = 2209) 10.1 MG/DL 8.5-10.5 PROTEIN, TOTAL (test code = 7.7 G/DL 6.1-8.3 2228) ALBUMIN (test code = 2201) 4.8 G/DL 3.5-5.2 CALC GLOBULIN (test code = 2.9 G/DL 1.9-3.7 2239) CALC A/G RATIO (test code = 1.7 RATIO 1.0-2.6 2233) BILIRUBIN, TOTAL (test code 1.0 MG/DL See_Comment [Automated message] The = 2206) system which ge nerated this result transmit lisbeth reference range: <=1.2. T he reference range was not u sed to interpret this result as normal/abnormal . ALKALINE PHOSPHATASE (test 89 U/L 40-125 code = 2204) AST (test code = 2218) 16 U/L 9-50 ALT (test code = 2219) 15 U/L 5-50 LIPID [id number] 06:51:15 Test Item Value Reference Range Interpretation Comments CHOLESTEROL (test 265 MG/DL <200 H code = 2210) TRIGLYCERIDES (test 247 MG/DL <150 H code = 2232) HDL CHOLESTEROL (test 30 MG/DL >39 L code = 2220) CALC LDL CHOL (test 189 MG/DL <100 H NOTE: C ALCULATED LDL code = 2237) IS BASED ON ANNETTE-AGUAYO METHOD WHICHINCLUDES ADJUSTABLE TRIGLYCERIDE:VL DL CHOLESTEROL RAT IO.THIS FACTOR VARIES B Y MEASURED TRIGLY CERIDE AND NON-HDLCHOL ESTEROL CONCENTRATIONS WITH INCREASED CALCU LATED LDL SEENIN HIGH ER TRIGLYCERIDE OR LOWER NON-HDL SPECIME NS. FOR MOREINFORMATION , SEE CLIENT ANNOUNCE MENT AT [email or web address] [email or web address] LDL/HDL 6.30 RATIO <3.55 H (test code = 2238) HEMOGLOBIN [id number] 06:32:47 Test Item Value Reference Range Interpretation Comments HEMOGLOBIN A1c (test code = 02261) 6.1 % 4.2-5.6 H CBC W/AUTO DIFF WITH [id number] 05:52:40 Test Item Value Reference Range Interpretation Comments WBC (test code = 7.6 K/UL 3.5-11.0 1001) RBC (test code = 5.58 M/UL 4.50-6.10 1002) HEMOGLOBIN (test 16.3 G/DL 13.5-17.0 code = 1003) HEMATOCRIT (test 50.0 % 40.0-51.0 code = 1004) MCV (test code = 89.6 fL 80.0-99.0 1005) MCH (test code = 29.2 PG 25.0-33.0 1006) MCHC (test code = 32.6 G/DL 31.0-36.0 1007) RDW (test code = 13.3 % 11.5-15.0 1038) NEUTROPHILS (test 65.8 % code = 1008) LYMPHOCYTES (test 22.9 % code = 1010) MONOCYTES (test code 8.4 % = 1011) EOSINOPHILS (test 2.1 % code = 1012) BASOPHILS (test code 0.4 % = 1013) IMMATURE 0.4 % GRANULOCYTES (test code = 1036) NUCLEATED RBCS (test 0.0 /100 See_Comment [Autom ated message] code = 1065) WBC'S The system icix generated this result transmitted ref erence range: 0.0. The reference range was not used to int erpret this result as normal/abnormal . PLATELET COUNT (test 197 K/UL 130-400 code = 1015) ABSOLUTE NEUTROPHILS 5.00 K/UL 1.50-7.50 (test code = 1066) ABSOLUTE LYMPHOCYTES 1.74 K/UL 1.00-4.00 (test code = 1067) ABSOLUTE MONOCYTES 0.64 K/UL 0.20-1.00 (test code = 1068) ABSOLUTE EOSINOPHILS 0.16 K/UL 0.00-0.50 (test code = 1040) ABSOLUTE BASOPHILS 0.03 K/UL 0.00-0.20 (test code = 1069) ABS IMMATURE 0.03 K/UL 0.00-0.10 GRANULOCYTES (test code = 1020) ABS NUCLEATED RBCS 0.00 K/UL 0.00-0.11 UNLESS O THERWISE (test code = 11237) INDICATE D, ALL TESTING PERFORM ED ATCLINICAL PATH OLOGY LABORATORIES, [facility]. [address] [place] [id number] [place] [address] DIRECTOR: ANGELLA WRIGHT M.D. IA NUMBER [id number] CAP ACCREDITATION N O. [id number] COMPREHENSIVE METABOLIC [id number] 00:00:00 Test Item Value Reference Range Interpretation Comments GLUCOSE (test code = 2217) 109 MG/DL BUN (test code = 2208) 19 MG/DL CREATININE (test code = 2214) 0.99 MG/DL eGFR (2020 CKD-EPI) (test code 83 ML/MIN/1.73 = 02511) CALC BUN/CREAT (test code = 19 RATIO 2235) SODIUM (test code = 2231) 140 MEQ/L POTASSIUM (test code = 2228) 4.7 MEQ/L CHLORIDE (test code = 2215) 101 MEQ/L CARBON DIOXIDE (test code = 24 MEQ/L 2206) CALCIUM (test code = 2209) 10.1 MG/DL PROTEIN, TOTAL (test code = 7.7 G/DL 2228) ALBUMIN (test code = 2201) 4.8 G/DL CALC GLOBULIN (test code = 2.9 G/DL 2240) CALC A/G RATIO (test code = 1.7 RATIO 2234) BILIRUBIN, TOTAL (test code = 1.0 MG/DL 2206) ALKALINE PHOSPHATASE (test 89 U/L code = 2204) AST (test code = 2218) 16 U/L ALT (test code = 2219) 15 U/L COMPREHENSIVE METABOLIC [id number] 00:00:00 Test Item Value Reference Range Interpretation Comments GLUCOSE (test code = 221) 109 MG/DL BUN (test code = 2208) 19 MG/DL CREATININE (test code = 2214) 0.99 MG/DL eGFR (2020 CKD-EPI) (test code 83 ML/MIN/1.73 = 97839) CALC BUN/CREAT (test code = 19 RATIO 2235) SODIUM (test code = 2231) 140 MEQ/L POTASSIUM (test code = 2228) 4.7 MEQ/L CHLORIDE (test code = 2215) 101 MEQ/L CARBON DIOXIDE (test code = 24 MEQ/L 2205) CALCIUM (test code = 2209) 10.1 MG/DL PROTEIN, TOTAL (test code = 7.7 G/DL 2228) ALBUMIN (test code = 2201) 4.8 G/DL CALC GLOBULIN (test code = 2.9 G/DL 2240) CALC A/G RATIO (test code = 1.7 RATIO 2234) BILIRUBIN, TOTAL (test code = 1.0 MG/DL 2206) ALKALINE PHOSPHATASE (test 89 U/L code = 2204) AST (test code = 2218) 16 U/L ALT (test code = 2219) 15 U/L LIPID [id number] 00:00:00 Test Item Value Reference Range Interpretation Comments CHOLESTEROL (test code = 2210) 265 MG/DL TRIGLYCERIDES (test code = 2232) 247 MG/DL HDL CHOLESTEROL (test code = 2220) 30 MG/DL CALC LDL CHOL (test code = 2237) 189 MG/DL RISK RATIO LDL/HDL (test code = 6.30 RATIO 2238) LIPID [id number] 00:00:00 Test Item Value Reference Range Interpretation Comments CHOLESTEROL (test code = 2210) 265 MG/DL TRIGLYCERIDES (test code = 2232) 247 MG/DL HDL CHOLESTEROL (test code = 2220) 30 MG/DL CALC LDL CHOL (test code = 2237) 189 MG/DL RISK RATIO LDL/HDL (test code = 6.30 RATIO 2238) HEMOGLOBIN [id number] 00:00:00 Test Item Value Reference Range Interpretation Comments HEMOGLOBIN A1c (test code = 91999) 6.1 % HEMOGLOBIN [id number] 00:00:00 Test Item Value Reference Range Interpretation Comments HEMOGLOBIN A1c (test code = 86139) 6.1 % HEMOGLOBIN [id number] 00:00:00 Test Item Value Reference Range Interpretation Comments HEMOGLOBIN A1c (test code = 43187) 6.1 % CBC W/AUTO [id number] 00:00:00 Test Item Value Reference Range Interpretation Comments WBC (test code = 1001) 7.6 K/UL RBC (test code = 1002) 5.58 M/UL HEMOGLOBIN (test code = 1003) 16.3 G/DL HEMATOCRIT (test code = 1004) 50.0 % MCV (test code = 1005) 89.6 fL MCH (test code = 1006) 29.2 PG MCHC (test code = 1007) 32.6 G/DL RDW (test code = 1038) 13.3 % NEUTROPHILS (test code = 1008) 65.8 % LYMPHOCYTES (test code = 1010) 22.9 % MONOCYTES (test code = 1011) 8.4 % EOSINOPHILS (test code = 1012) 2.1 % BASOPHILS (test code = 1013) 0.4 % IMMATURE GRANULOCYTES (test 0.4 % code = 1036) NUCLEATED RBCS (test code = 0.0 /100WBC'S 1065) PLATELET COUNT (test code = 197 K/UL 1015) ABSOLUTE NEUTROPHILS (test code 5.00 K/UL = 1066) ABSOLUTE LYMPHOCYTES (test code 1.74 K/UL = 1067) ABSOLUTE MONOCYTES (test code = 0.64 K/UL 1068) ABSOLUTE EOSINOPHILS (test code 0.16 K/UL = 1040) ABSOLUTE BASOPHILS (test code = 0.03 K/UL 1069) ABS IMMATURE GRANULOCYTES (test 0.03 K/UL code = 1020) ABS NUCLEATED RBCS (test code = 0.00 K/UL 24915) CBC W/AUTO [id number] 00:00:00 Test Item Value Reference Range Interpretation Comments WBC (test code = 1001) 7.6 K/UL RBC (test code = 1002) 5.58 M/UL HEMOGLOBIN (test code = 1003) 16.3 G/DL HEMATOCRIT (test code = 1004) 50.0 % MCV (test code = 1005) 89.6 fL MCH (test code = 1006) 29.2 PG MCHC (test code = 1007) 32.6 G/DL RDW (test code = 1038) 13.3 % NEUTROPHILS (test code = 1008) 65.8 % LYMPHOCYTES (test code = 1010) 22.9 % MONOCYTES (test code = 1011) 8.4 % EOSINOPHILS (test code = 1012) 2.1 % BASOPHILS (test code = 1013) 0.4 % IMMATURE GRANULOCYTES (test 0.4 % code = 1036) NUCLEATED RBCS (test code = 0.0 /100WBC'S 1065) PLATELET COUNT (test code = 197 K/UL 1015) ABSOLUTE NEUTROPHILS (test code 5.00 K/UL = 1066) ABSOLUTE LYMPHOCYTES (test code 1.74 K/UL = 1067) ABSOLUTE MONOCYTES (test code = 0.64 K/UL 1068) ABSOLUTE EOSINOPHILS (test code 0.16 K/UL = 1040) ABSOLUTE BASOPHILS (test code = 0.03 K/UL 1069) ABS IMMATURE GRANULOCYTES (test 0.03 K/UL code = 1020) ABS NUCLEATED RBCS (test code = 0.00 K/UL 34600) CBC W/AUTO [id number] 00:00:00 Test Item Value Reference Range Interpretation Comments WBC (test code = 1001) 7.6 K/UL RBC (test code = 1002) 5.58 M/UL HEMOGLOBIN (test code = 1003) 16.3 G/DL HEMATOCRIT (test code = 1004) 50.0 % MCV (test code = 1005) 89.6 fL MCH (test code = 1006) 29.2 PG MCHC (test code = 1007) 32.6 G/DL RDW (test code = 1038) 13.3 % NEUTROPHILS (test code = 1008) 65.8 % LYMPHOCYTES (test code = 1010) 22.9 % MONOCYTES (test code = 1011) 8.4 % EOSINOPHILS (test code = 1012) 2.1 % BASOPHILS (test code = 1013) 0.4 % IMMATURE GRANULOCYTES (test 0.4 % code = 1036) NUCLEATED RBCS (test code = 0.0 /100WBC'S 1065) PLATELET COUNT (test code = 197 K/UL 1015) ABSOLUTE NEUTROPHILS (test code 5.00 K/UL = 1066) ABSOLUTE LYMPHOCYTES (test code 1.74 K/UL = 1067) ABSOLUTE MONOCYTES (test code = 0.64 K/UL 1068) ABSOLUTE EOSINOPHILS (test code 0.16 K/UL = 1040) ABSOLUTE BASOPHILS (test code = 0.03 K/UL 1069) ABS IMMATURE GRANULOCYTES (test 0.03 K/UL code = 1020) ABS NUCLEATED RBCS (test code = 0.00 K/UL 27150) HEMOGLOBIN [id number] 00:00:00 Test Item Value Reference Range Interpretation Comments HEMOGLOBIN A1c (test code = 98572) 5.8 % HEMOGLOBIN [id number] 00:00:00 Test Item Value Reference Range Interpretation Comments HEMOGLOBIN A1c (test code = 00034) 5.8 % HEMOGLOBIN [id number] 00:00:00 Test Item Value Reference Range Interpretation Comments HEMOGLOBIN A1c (test code = 94593) 5.8 % LIPID [id number] 00:00:00 Test Item Value Reference Range Interpretation Comments CHOLESTEROL (test code = 2210) 237 MG/DL TRIGLYCERIDES (test code = 2232) 137 MG/DL HDL CHOLESTEROL (test code = 2220) 43 MG/DL CALC LDL CHOL (test code = 2237) 167 MG/DL RISK RATIO LDL/HDL (test code = 3.88 RATIO 2238) LIPID [id number] 00:00:00 Test Item Value Reference Range Interpretation Comments CHOLESTEROL (test code = 2210) 237 MG/DL TRIGLYCERIDES (test code = 2232) 137 MG/DL HDL CHOLESTEROL (test code = 2220) 43 MG/DL CALC LDL CHOL (test code = 2237) 167 MG/DL RISK RATIO LDL/HDL (test code = 3.88 RATIO 2238) COMPREHENSIVE METABOLIC [id number] 00:00:00 Test Item Value Reference Range Interpretation Comments GLUCOSE (test code = 2217) 110 MG/DL BUN (test code = 2208) 16 MG/DL CREATININE (test code = 2214) 0.92 MG/DL eGFR AMER. (test code 100 ML/MIN/1.73 = 58973) eGFR NON- AMER. (test 86 ML/MIN/1.73 code = 37180) CALC BUN/CREAT (test code = 17 RATIO 2235) SODIUM (test code = 2231) 141 MEQ/L POTASSIUM (test code = 2228) 4.4 MEQ/L CHLORIDE (test code = 2215) 106 MEQ/L CARBON DIOXIDE (test code = 23 MEQ/L 220) CALCIUM (test code = 2209) 9.2 MG/DL PROTEIN, TOTAL (test code = 6.8 G/DL 2228) ALBUMIN (test code = 2201) 4.3 G/DL CALC GLOBULIN (test code = 2.5 G/DL 2240) CALC A/G RATIO (test code = 1.7 RATIO 2234) BILIRUBIN, TOTAL (test code = 0.5 MG/DL 2206) ALKALINE PHOSPHATASE (test 77 U/L code = 2204) AST (test code = 2218) 17 U/L ALT (test code = 2219) 16 U/L COMPREHENSIVE METABOLIC [id number] 00:00:00 Test Item Value Reference Range Interpretation Comments GLUCOSE (test code = 2217) 110 MG/DL BUN (test code = 2208) 16 MG/DL CREATININE (test code = 2214) 0.92 MG/DL eGFR AMER. (test code 100 ML/MIN/1.73 = 43276) eGFR NON- AMER. (test 86 ML/MIN/1.73 code = 09566) CALC BUN/CREAT (test code = 17 RATIO 2235) SODIUM (test code = 2231) 141 MEQ/L POTASSIUM (test code = 2228) 4.4 MEQ/L CHLORIDE (test code = 2215) 106 MEQ/L CARBON DIOXIDE (test code = 23 MEQ/L 2206) CALCIUM (test code = 2209) 9.2 MG/DL PROTEIN, TOTAL (test code = 6.8 G/DL 2228) ALBUMIN (test code = 2201) 4.3 G/DL CALC GLOBULIN (test code = 2.5 G/DL 2240) CALC A/G RATIO (test code = 1.7 RATIO 2234) BILIRUBIN, TOTAL (test code = 0.5 MG/DL 2206) ALKALINE PHOSPHATASE (test 77 U/L code = 2204) AST (test code = 2218) 17 U/L ALT (test code = 2219) 16 U/L HEMOGLOBIN [id number] 00:00:00 Test Item Value Reference Range Interpretation Comments HEMOGLOBIN A1c (test code = 41840) 5.8 % HEMOGLOBIN [id number] 00:00:00 Test Item Value Reference Range Interpretation Comments HEMOGLOBIN A1c (test code = 34807) 5.8 % HEMOGLOBIN [id number] 00:00:00 Test Item Value Reference Range Interpretation Comments HEMOGLOBIN A1c (test code = 92236) 5.8 % LIPID [id number] 00:00:00 Test Item Value Reference Range Interpretation Comments CHOLESTEROL (test code = 2210) 237 MG/DL TRIGLYCERIDES (test code = 2232) 137 MG/DL HDL CHOLESTEROL (test code = 2220) 43 MG/DL CALC LDL CHOL (test code = 2237) 167 MG/DL RISK RATIO LDL/HDL (test code = 3.88 RATIO 2238) LIPID [id number] 00:00:00 Test Item Value Reference Range Interpretation Comments CHOLESTEROL (test code = 2210) 237 MG/DL TRIGLYCERIDES (test code = 2232) 137 MG/DL HDL CHOLESTEROL (test code = 2220) 43 MG/DL CALC LDL CHOL (test code = 2237) 167 MG/DL RISK RATIO LDL/HDL (test code = 3.88 RATIO 2238) COMPREHENSIVE METABOLIC [id number] 00:00:00 Test Item Value Reference Range Interpretation Comments GLUCOSE (test code = 2217) 110 MG/DL BUN (test code = 2208) 16 MG/DL CREATININE (test code = 2214) 0.92 MG/DL eGFR AMER. (test code 100 ML/MIN/1.73 = 41986) eGFR NON- AMER. (test 86 ML/MIN/1.73 code = 57339) CALC BUN/CREAT (test code = 17 RATIO 2235) SODIUM (test code = 2231) 141 MEQ/L POTASSIUM (test code = 2228) 4.4 MEQ/L CHLORIDE (test code = 2215) 106 MEQ/L CARBON DIOXIDE (test code = 23 MEQ/L 2206) CALCIUM (test code = 2209) 9.2 MG/DL PROTEIN, TOTAL (test code = 6.8 G/DL 222) ALBUMIN (test code = 2201) 4.3 G/DL CALC GLOBULIN (test code = 2.5 G/DL 2240) CALC A/G RATIO (test code = 1.7 RATIO 2234) BILIRUBIN, TOTAL (test code = 0.5 MG/DL 2207) ALKALINE PHOSPHATASE (test 77 U/L code = 2204) AST (test code = 2218) 17 U/L ALT (test code = 2219) 16 U/L COMPREHENSIVE METABOLIC [id number] 00:00:00 Test Item Value Reference Range Interpretation Comments GLUCOSE (test code = 2217) 110 MG/DL BUN (test code = 2208) 16 MG/DL CREATININE (test code = 2214) 0.92 MG/DL eGFR AMER. (test code 100 ML/MIN/1.73 = 12189) eGFR NON- AMER. (test 86 ML/MIN/1.73 code = 41970) CALC BUN/CREAT (test code = 17 RATIO 2235) SODIUM (test code = 2231) 141 MEQ/L POTASSIUM (test code = 2228) 4.4 MEQ/L CHLORIDE (test code = 2215) 106 MEQ/L CARBON DIOXIDE (test code = 23 MEQ/L 2205) CALCIUM (test code = 2209) 9.2 MG/DL PROTEIN, TOTAL (test code = 6.8 G/DL 2228) ALBUMIN (test code = 2201) 4.3 G/DL CALC GLOBULIN (test code = 2.5 G/DL 2240) CALC A/G RATIO (test code = 1.7 RATIO 2234) BILIRUBIN, TOTAL (test code = 0.5 MG/DL 2207) ALKALINE PHOSPHATASE (test 77 U/L code = 2204) AST (test code = 2218) 17 U/L ALT (test code = 2219) 16 U/L HEMOGLOBIN [id number] 00:00:00 Test Item Value Reference Range Interpretation Comments HEMOGLOBIN A1c (test code = 70618) 5.8 % HEMOGLOBIN [id number] 00:00:00 Test Item Value Reference Range Interpretation Comments HEMOGLOBIN A1c (test code = 20773) 5.8 % LIPID [id number] 00:00:00 Test Item Value Reference Range Interpretation Comments CHOLESTEROL (test code = 2210) 237 MG/DL TRIGLYCERIDES (test code = 2232) 137 MG/DL HDL CHOLESTEROL (test code = 2220) 43 MG/DL CALC LDL CHOL (test code = 2237) 167 MG/DL RISK RATIO LDL/HDL (test code = 3.88 RATIO 2238) COMPREHENSIVE METABOLIC [id number] 00:00:00 Test Item Value Reference Range Interpretation Comments GLUCOSE (test code = 2217) 110 MG/DL BUN (test code = 2208) 16 MG/DL CREATININE (test code = 2214) 0.92 MG/DL eGFR AMER. (test code 100 ML/MIN/1.73 = 39194) eGFR NON- AMER. (test 86 ML/MIN/1.73 code = 94591) CALC BUN/CREAT (test code = 17 RATIO 2235) SODIUM (test code = 2231) 141 MEQ/L POTASSIUM (test code = 2228) 4.4 MEQ/L CHLORIDE (test code = 2215) 106 MEQ/L CARBON DIOXIDE (test code = 23 MEQ/L 2205) CALCIUM (test code = 2209) 9.2 MG/DL PROTEIN, TOTAL (test code = 6.8 G/DL 2228) ALBUMIN (test code = 2201) 4.3 G/DL CALC GLOBULIN (test code = 2.5 G/DL 2240) CALC A/G RATIO (test code = 1.7 RATIO 2234) BILIRUBIN, TOTAL (test code = 0.5 MG/DL 2206) ALKALINE PHOSPHATASE (test 77 U/L code = 2204) AST (test code = 2218) 17 U/L ALT (test code = 2219) 16 U/L COMPREHENSIVE METABOLIC [id number] 00:00:00 Test Item Value Reference Range Interpretation Comments GLUCOSE (test code = 2217) 104 MG/DL BUN (test code = 2208) 21 MG/DL CREATININE (test code = 2214) 1.00 MG/DL eGFR AMER. (test code 90 ML/MIN/1.73 = 88901) eGFR NON- AMER. (test 78 ML/MIN/1.73 code = 93406) CALC BUN/CREAT (test code = 21 RATIO 2235) SODIUM (test code = 2231) 138 MEQ/L POTASSIUM (test code = 2228) 3.9 MEQ/L CHLORIDE (test code = 2215) 102 MEQ/L CARBON DIOXIDE (test code = 26 MEQ/L 220) CALCIUM (test code = 2209) 9.3 MG/DL PROTEIN, TOTAL (test code = 7.0 G/DL 2228) ALBUMIN (test code = 2201) 4.6 G/DL CALC GLOBULIN (test code = 2.4 G/DL 2240) CALC A/G RATIO (test code = 1.9 RATIO 2234) BILIRUBIN, TOTAL (test code = 0.6 MG/DL 2206) ALKALINE PHOSPHATASE (test 66 U/L code = 2204) AST (test code = 2218) 14 U/L ALT (test code = 2219) 19 U/L COMPREHENSIVE METABOLIC [id number] 00:00:00 Test Item Value Reference Range Interpretation Comments GLUCOSE (test code = 2217) 104 MG/DL BUN (test code = 2208) 21 MG/DL CREATININE (test code = 2214) 1.00 MG/DL eGFR AMER. (test code 90 ML/MIN/1.73 = 34378) eGFR NON- AMER. (test 78 ML/MIN/1.73 code = 38701) CALC BUN/CREAT (test code = 21 RATIO 2235) SODIUM (test code = 2231) 138 MEQ/L POTASSIUM (test code = 2228) 3.9 MEQ/L CHLORIDE (test code = 2215) 102 MEQ/L CARBON DIOXIDE (test code = 26 MEQ/L 2205) CALCIUM (test code = 2209) 9.3 MG/DL PROTEIN, TOTAL (test code = 7.0 G/DL 2228) ALBUMIN (test code = 2201) 4.6 G/DL CALC GLOBULIN (test code = 2.4 G/DL 2240) CALC A/G RATIO (test code = 1.9 RATIO 2234) BILIRUBIN, TOTAL (test code = 0.6 MG/DL 2206) ALKALINE PHOSPHATASE (test 66 U/L code = 2204) AST (test code = 2218) 14 U/L ALT (test code = 2219) 19 U/L LIPID [id number] 00:00:00 Test Item Value Reference Range Interpretation Comments CHOLESTEROL (test code = 2210) 239 MG/DL TRIGLYCERIDES (test code = 2232) 287 MG/DL HDL CHOLESTEROL (test code = 2220) 37 MG/DL CALC LDL CHOL (test code = 2237) 155 MG/DL RISK RATIO LDL/HDL (test code = 4.19 RATIO 2238) LIPID [id number] 00:00:00 Test Item Value Reference Range Interpretation Comments CHOLESTEROL (test code = 2210) 239 MG/DL TRIGLYCERIDES (test code = 2232) 287 MG/DL HDL CHOLESTEROL (test code = 2220) 37 MG/DL CALC LDL CHOL (test code = 2237) 155 MG/DL RISK RATIO LDL/HDL (test code = 4.19 RATIO 2238) CBC W/AUTO [id number] 00:00:00 Test Item Value Reference Range Interpretation Comments WBC (test code = 1001) 10.4 K/UL RBC (test code = 1002) 5.06 M/UL HEMOGLOBIN (test code = 1003) 15.0 G/DL HEMATOCRIT (test code = 1004) 44.7 % MCV (test code = 1005) 88.3 fL MCH (test code = 1006) 29.6 PG MCHC (test code = 1007) 33.6 G/DL RDW (test code = 1038) 13.2 % NEUTROPHILS (test code = 1008) 63.8 % LYMPHOCYTES (test code = 1010) 27.0 % MONOCYTES (test code = 1011) 8.2 % EOSINOPHILS (test code = 1012) 0.5 % BASOPHILS (test code = 1013) 0.5 % PLATELET COUNT (test code = 1015) 177 K/UL CBC W/AUTO [id number] 00:00:00 Test Item Value Reference Range Interpretation Comments WBC (test code = 1001) 10.4 K/UL RBC (test code = 1002) 5.06 M/UL HEMOGLOBIN (test code = 1003) 15.0 G/DL HEMATOCRIT (test code = 1004) 44.7 % MCV (test code = 1005) 88.3 fL MCH (test code = 1006) 29.6 PG MCHC (test code = 1007) 33.6 G/DL RDW (test code = 1038) 13.2 % NEUTROPHILS (test code = 1008) 63.8 % LYMPHOCYTES (test code = 1010) 27.0 % MONOCYTES (test code = 1011) 8.2 % EOSINOPHILS (test code = 1012) 0.5 % BASOPHILS (test code = 1013) 0.5 % PLATELET COUNT (test code = 1015) 177 K/UL CBC W/AUTO [id number] 00:00:00 Test Item Value Reference Range Interpretation Comments WBC (test code = 1001) 10.4 K/UL RBC (test code = 1002) 5.06 M/UL HEMOGLOBIN (test code = 1003) 15.0 G/DL HEMATOCRIT (test code = 1004) 44.7 % MCV (test code = 1005) 88.3 fL MCH (test code = 1006) 29.6 PG MCHC (test code = 1007) 33.6 G/DL RDW (test code = 1038) 13.2 % NEUTROPHILS (test code = 1008) 63.8 % LYMPHOCYTES (test code = 1010) 27.0 % MONOCYTES (test code = 1011) 8.2 % EOSINOPHILS (test code = 1012) 0.5 % BASOPHILS (test code = 1013) 0.5 % PLATELET COUNT (test code = 1015) 177 K/UL HEMOGLOBIN [id number] 00:00:00 Test Item Value Reference Range Interpretation Comments HEMOGLOBIN A1c (test code = 87501) 5.8 % HEMOGLOBIN [id number] 00:00:00 Test Item Value Reference Range Interpretation Comments HEMOGLOBIN A1c (test code = 77872) 5.8 % HEMOGLOBIN [id number] 00:00:00 Test Item Value Reference Range Interpretation Comments HEMOGLOBIN A1c (test code = 99881) 5.8 % [id number] 00:00:00 Test Item Value Reference Range Interpretation Comments TSH, THIRD GENERATION (test code 2.900 UIU/ML = 2821) [id number] 00:00:00 Test Item Value Reference Range Interpretation Comments TSH, THIRD GENERATION (test code 2.900 UIU/ML = 2821) [id number] 00:00:00 Test Item Value Reference Range Interpretation Comments TSH, THIRD GENERATION (test code 2.900 UIU/ML = 2821) COMPREHENSIVE METABOLIC [id number] 00:00:00 Test Item Value Reference Range Interpretation Comments GLUCOSE (test code = 2217) 104 MG/DL BUN (test code = 2208) 21 MG/DL CREATININE (test code = 2214) 1.00 MG/DL eGFR AMER. (test code 90 ML/MIN/1.73 = 60000) eGFR NON- AMER. (test 78 ML/MIN/1.73 code = 05482) CALC BUN/CREAT (test code = 21 RATIO 2235) SODIUM (test code = 2231) 138 MEQ/L POTASSIUM (test code = 2228) 3.9 MEQ/L CHLORIDE (test code = 2215) 102 MEQ/L CARBON DIOXIDE (test code = 26 MEQ/L 2205) CALCIUM (test code = 2209) 9.3 MG/DL PROTEIN, TOTAL (test code = 7.0 G/DL 2228) ALBUMIN (test code = 2201) 4.6 G/DL CALC GLOBULIN (test code = 2.4 G/DL 2240) CALC A/G RATIO (test code = 1.9 RATIO 2234) BILIRUBIN, TOTAL (test code = 0.6 MG/DL 2206) ALKALINE PHOSPHATASE (test 66 U/L code = 2204) AST (test code = 2218) 14 U/L ALT (test code = 2219) 19 U/L COMPREHENSIVE METABOLIC [id number] 00:00:00 Test Item Value Reference Range Interpretation Comments GLUCOSE (test code = 2217) 104 MG/DL BUN (test code = 2208) 21 MG/DL CREATININE (test code = 2214) 1.00 MG/DL eGFR AMER. (test code 90 ML/MIN/1.73 = 53507) eGFR NON- AMER. (test 78 ML/MIN/1.73 code = 06944) CALC BUN/CREAT (test code = 21 RATIO 2235) SODIUM (test code = 2231) 138 MEQ/L POTASSIUM (test code = 2228) 3.9 MEQ/L CHLORIDE (test code = 2215) 102 MEQ/L CARBON DIOXIDE (test code = 26 MEQ/L 220) CALCIUM (test code = 2209) 9.3 MG/DL PROTEIN, TOTAL (test code = 7.0 G/DL 2228) ALBUMIN (test code = 2201) 4.6 G/DL CALC GLOBULIN (test code = 2.4 G/DL 2240) CALC A/G RATIO (test code = 1.9 RATIO 2234) BILIRUBIN, TOTAL (test code = 0.6 MG/DL 2206) ALKALINE PHOSPHATASE (test 66 U/L code = 2204) AST (test code = 2218) 14 U/L ALT (test code = 2219) 19 U/L LIPID [id number] 00:00:00 Test Item Value Reference Range Interpretation Comments CHOLESTEROL (test code = 2210) 239 MG/DL TRIGLYCERIDES (test code = 2232) 287 MG/DL HDL CHOLESTEROL (test code = 2220) 37 MG/DL CALC LDL CHOL (test code = 2237) 155 MG/DL RISK RATIO LDL/HDL (test code = 4.19 RATIO 2238) LIPID [id number] 00:00:00 Test Item Value Reference Range Interpretation Comments CHOLESTEROL (test code = 2210) 239 MG/DL TRIGLYCERIDES (test code = 2232) 287 MG/DL HDL CHOLESTEROL (test code = 2220) 37 MG/DL CALC LDL CHOL (test code = 2237) 155 MG/DL RISK RATIO LDL/HDL (test code = 4.19 RATIO 2238) CBC W/AUTO [id number] 00:00:00 Test Item Value Reference Range Interpretation Comments WBC (test code = 1001) 10.4 K/UL RBC (test code = 1002) 5.06 M/UL HEMOGLOBIN (test code = 1003) 15.0 G/DL HEMATOCRIT (test code = 1004) 44.7 % MCV (test code = 1005) 88.3 fL MCH (test code = 1006) 29.6 PG MCHC (test code = 1007) 33.6 G/DL RDW (test code = 1038) 13.2 % NEUTROPHILS (test code = 1008) 63.8 % LYMPHOCYTES (test code = 1010) 27.0 % MONOCYTES (test code = 1011) 8.2 % EOSINOPHILS (test code = 1012) 0.5 % BASOPHILS (test code = 1013) 0.5 % PLATELET COUNT (test code = 1015) 177 K/UL CBC W/AUTO [id number] 00:00:00 Test Item Value Reference Range Interpretation Comments WBC (test code = 1001) 10.4 K/UL RBC (test code = 1002) 5.06 M/UL HEMOGLOBIN (test code = 1003) 15.0 G/DL HEMATOCRIT (test code = 1004) 44.7 % MCV (test code = 1005) 88.3 fL MCH (test code = 1006) 29.6 PG MCHC (test code = 1007) 33.6 G/DL RDW (test code = 1038) 13.2 % NEUTROPHILS (test code = 1008) 63.8 % LYMPHOCYTES (test code = 1010) 27.0 % MONOCYTES (test code = 1011) 8.2 % EOSINOPHILS (test code = 1012) 0.5 % BASOPHILS (test code = 1013) 0.5 % PLATELET COUNT (test code = 1015) 177 K/UL CBC W/AUTO [id number] 00:00:00 Test Item Value Reference Range Interpretation Comments WBC (test code = 1001) 10.4 K/UL RBC (test code = 1002) 5.06 M/UL HEMOGLOBIN (test code = 1003) 15.0 G/DL HEMATOCRIT (test code = 1004) 44.7 % MCV (test code = 1005) 88.3 fL MCH (test code = 1006) 29.6 PG MCHC (test code = 1007) 33.6 G/DL RDW (test code = 1038) 13.2 % NEUTROPHILS (test code = 1008) 63.8 % LYMPHOCYTES (test code = 1010) 27.0 % MONOCYTES (test code = 1011) 8.2 % EOSINOPHILS (test code = 1012) 0.5 % BASOPHILS (test code = 1013) 0.5 % PLATELET COUNT (test code = 1015) 177 K/UL HEMOGLOBIN [id number] 00:00:00 Test Item Value Reference Range Interpretation Comments HEMOGLOBIN A1c (test code = 88835) 5.8 % HEMOGLOBIN [id number] 00:00:00 Test Item Value Reference Range Interpretation Comments HEMOGLOBIN A1c (test code = 12319) 5.8 % HEMOGLOBIN [id number] 00:00:00 Test Item Value Reference Range Interpretation Comments HEMOGLOBIN A1c (test code = 89041) 5.8 % [id number] 00:00:00 Test Item Value Reference Range Interpretation Comments TSH, THIRD GENERATION (test code 2.900 UIU/ML = 2821) [id number] 00:00:00 Test Item Value Reference Range Interpretation Comments TSH, THIRD GENERATION (test code 2.900 UIU/ML = 2821) [id number] 00:00:00 Test Item Value Reference Range Interpretation Comments TSH, THIRD GENERATION (test code 2.900 UIU/ML = 2821) COMPREHENSIVE METABOLIC [id number] 00:00:00 Test Item Value Reference Range Interpretation Comments GLUCOSE (test code = 2217) 104 MG/DL BUN (test code = 2208) 21 MG/DL CREATININE (test code = 2214) 1.00 MG/DL eGFR AMER. (test code 90 ML/MIN/1.73 = 88784) eGFR NON- AMER. (test 78 ML/MIN/1.73 code = 55667) CALC BUN/CREAT (test code = 21 RATIO 2235) SODIUM (test code = 2231) 138 MEQ/L POTASSIUM (test code = 2228) 3.9 MEQ/L CHLORIDE (test code = 2215) 102 MEQ/L CARBON DIOXIDE (test code = 26 MEQ/L 2205) CALCIUM (test code = 2209) 9.3 MG/DL PROTEIN, TOTAL (test code = 7.0 G/DL 2228) ALBUMIN (test code = 2201) 4.6 G/DL CALC GLOBULIN (test code = 2.4 G/DL 2239) CALC A/G RATIO (test code = 1.9 RATIO 2234) BILIRUBIN, TOTAL (test code = 0.6 MG/DL 2206) ALKALINE PHOSPHATASE (test 66 U/L code = 2204) AST (test code = 2218) 14 U/L ALT (test code = 2219) 19 U/L LIPID [id number] 00:00:00 Test Item Value Reference Range Interpretation Comments CHOLESTEROL (test code = 2210) 239 MG/DL TRIGLYCERIDES (test code = 2232) 287 MG/DL HDL CHOLESTEROL (test code = 2220) 37 MG/DL CALC LDL CHOL (test code = 2237) 155 MG/DL RISK RATIO LDL/HDL (test code = 4.19 RATIO 2238) CBC W/AUTO [id number] 00:00:00 Test Item Value Reference Range Interpretation Comments WBC (test code = 1001) 10.4 K/UL RBC (test code = 1002) 5.06 M/UL HEMOGLOBIN (test code = 1003) 15.0 G/DL HEMATOCRIT (test code = 1004) 44.7 % MCV (test code = 1005) 88.3 fL MCH (test code = 1006) 29.6 PG MCHC (test code = 1007) 33.6 G/DL RDW (test code = 1038) 13.2 % NEUTROPHILS (test code = 1008) 63.8 % LYMPHOCYTES (test code = 1010) 27.0 % MONOCYTES (test code = 1011) 8.2 % EOSINOPHILS (test code = 1012) 0.5 % BASOPHILS (test code = 1013) 0.5 % PLATELET COUNT (test code = 1015) 177 K/UL CBC W/AUTO [id number] 00:00:00 Test Item Value Reference Range Interpretation Comments WBC (test code = 1001) 10.4 K/UL RBC (test code = 1002) 5.06 M/UL HEMOGLOBIN (test code = 1003) 15.0 G/DL HEMATOCRIT (test code = 1004) 44.7 % MCV (test code = 1005) 88.3 fL MCH (test code = 1006) 29.6 PG MCHC (test code = 1007) 33.6 G/DL RDW (test code = 1038) 13.2 % NEUTROPHILS (test code = 1008) 63.8 % LYMPHOCYTES (test code = 1010) 27.0 % MONOCYTES (test code = 1011) 8.2 % EOSINOPHILS (test code = 1012) 0.5 % BASOPHILS (test code = 1013) 0.5 % PLATELET COUNT (test code = 1015) 177 K/UL HEMOGLOBIN [id number] 00:00:00 Test Item Value Reference Range Interpretation Comments HEMOGLOBIN A1c (test code = 30242) 5.8 % HEMOGLOBIN [id number] 00:00:00 Test Item Value Reference Range Interpretation Comments HEMOGLOBIN A1c (test code = 80476) 5.8 % [id number] 00:00:00 Test Item Value Reference Range Interpretation Comments TSH, THIRD GENERATION (test code 2.900 UIU/ML = 2821) [id number] 00:00:00 Test Item Value Reference Range Interpretation Comments TSH, THIRD GENERATION (test code 2.900 UIU/ML = 2821) PSA, FREE AND [id number] 00:00:00 Test Item Value Reference Range Interpretation Comments PROSTATIC SPECIFIC AG (test code = 1.46 NG/ML 581314) FREE PSA (test code = 825132) 0.24 NG/ML % FREE PSA (test code = 319283) 16 % [id number] 00:00:00 Test Item Value Reference Range Interpretation Comments TSH, THIRD GENERATION (test code 1.900 UIU/ML = 2821) [id number] 00:00:00 Test Item Value Reference Range Interpretation Comments TSH, THIRD GENERATION (test code 1.900 UIU/ML = 2821) [id number] 00:00:00 Test Item Value Reference Range Interpretation Comments TSH, THIRD GENERATION (test code 1.900 UIU/ML = 2821) LIPID [id number] 00:00:00 Test Item Value Reference Range Interpretation Comments CHOLESTEROL (test code = 2210) 238 MG/DL TRIGLYCERIDES (test code = 2232) 234 MG/DL HDL CHOLESTEROL (test code = 2220) 32 MG/DL CALC LDL CHOL (test code = 2237) 159 MG/DL RISK RATIO LDL/HDL (test code = 4.98 RATIO 2238) LIPID [id number] 00:00:00 Test Item Value Reference Range Interpretation Comments CHOLESTEROL (test code = 2210) 238 MG/DL TRIGLYCERIDES (test code = 2232) 234 MG/DL HDL CHOLESTEROL (test code = 2220) 32 MG/DL CALC LDL CHOL (test code = 2237) 159 MG/DL RISK RATIO LDL/HDL (test code = 4.98 RATIO 2238) COMPREHENSIVE METABOLIC [id number] 00:00:00 Test Item Value Reference Range Interpretation Comments GLUCOSE (test code = 2217) 102 MG/DL BUN (test code = 2208) 16 MG/DL CREATININE (test code = 2214) 0.92 MG/DL eGFR AMER. (test code 102 ML/MIN/1.73 = 55477) eGFR NON- AMER. (test 88 ML/MIN/1.73 code = 39307) CALC BUN/CREAT (test code = 17 RATIO 2235) SODIUM (test code = 2231) 141 MEQ/L POTASSIUM (test code = 2228) 4.3 MEQ/L CHLORIDE (test code = 2215) 105 MEQ/L CARBON DIOXIDE (test code = 22 MEQ/L 2206) CALCIUM (test code = 2209) 9.7 MG/DL PROTEIN, TOTAL (test code = 7.2 G/DL 2228) ALBUMIN (test code = 2201) 4.5 G/DL CALC GLOBULIN (test code = 2.7 G/DL 2240) CALC A/G RATIO (test code = 1.7 RATIO 2234) BILIRUBIN, TOTAL (test code = 0.6 MG/DL 2207) ALKALINE PHOSPHATASE (test 81 U/L code = 2204) AST (test code = 2218) 16 U/L ALT (test code = 2219) 18 U/L COMPREHENSIVE METABOLIC [id number] 00:00:00 Test Item Value Reference Range Interpretation Comments GLUCOSE (test code = 2217) 102 MG/DL BUN (test code = 2208) 16 MG/DL CREATININE (test code = 2214) 0.92 MG/DL eGFR AMER. (test code 102 ML/MIN/1.73 = 48731) eGFR NON- AMER. (test 88 ML/MIN/1.73 code = 61438) CALC BUN/CREAT (test code = 17 RATIO 2235) SODIUM (test code = 2231) 141 MEQ/L POTASSIUM (test code = 2228) 4.3 MEQ/L CHLORIDE (test code = 2215) 105 MEQ/L CARBON DIOXIDE (test code = 22 MEQ/L 2206) CALCIUM (test code = 2209) 9.7 MG/DL PROTEIN, TOTAL (test code = 7.2 G/DL 2229) ALBUMIN (test code = 2201) 4.5 G/DL CALC GLOBULIN (test code = 2.7 G/DL 2240) CALC A/G RATIO (test code = 1.7 RATIO 2234) BILIRUBIN, TOTAL (test code = 0.6 MG/DL 2207) ALKALINE PHOSPHATASE (test 81 U/L code = 2204) AST (test code = 2218) 16 U/L ALT (test code = 2219) 18 U/L PSA, FREE AND [id number] 00:00:00 Test Item Value Reference Range Interpretation Comments PROSTATIC SPECIFIC AG (test code = 1.46 NG/ML 081120) FREE PSA (test code = 884989) 0.24 NG/ML % FREE PSA (test code = 008253) 16 % PSA, FREE AND [id number] 00:00:00 Test Item Value Reference Range Interpretation Comments PROSTATIC SPECIFIC AG (test code = 1.46 NG/ML 880027) FREE PSA (test code = 765948) 0.24 NG/ML % FREE PSA (test code = 214891) 16 % [id number] 00:00:00 Test Item Value Reference Range Interpretation Comments TSH, THIRD GENERATION (test code 1.900 UIU/ML = 2821) [id number] 00:00:00 Test Item Value Reference Range Interpretation Comments TSH, THIRD GENERATION (test code 1.900 UIU/ML = 2821) [id number] 00:00:00 Test Item Value Reference Range Interpretation Comments TSH, THIRD GENERATION (test code 1.900 UIU/ML = 2821) LIPID [id number] 00:00:00 Test Item Value Reference Range Interpretation Comments CHOLESTEROL (test code = 2210) 238 MG/DL TRIGLYCERIDES (test code = 2232) 234 MG/DL HDL CHOLESTEROL (test code = 2220) 32 MG/DL CALC LDL CHOL (test code = 2237) 159 MG/DL RISK RATIO LDL/HDL (test code = 4.98 RATIO 2238) LIPID [id number] 00:00:00 Test Item Value Reference Range Interpretation Comments CHOLESTEROL (test code = 2210) 238 MG/DL TRIGLYCERIDES (test code = 2232) 234 MG/DL HDL CHOLESTEROL (test code = 2220) 32 MG/DL CALC LDL CHOL (test code = 2237) 159 MG/DL RISK RATIO LDL/HDL (test code = 4.98 RATIO 2238) COMPREHENSIVE METABOLIC [id number] 00:00:00 Test Item Value Reference Range Interpretation Comments GLUCOSE (test code = 2217) 102 MG/DL BUN (test code = 2208) 16 MG/DL CREATININE (test code = 2214) 0.92 MG/DL eGFR AMER. (test code 102 ML/MIN/1.73 = 60602) eGFR NON- AMER. (test 88 ML/MIN/1.73 code = 90063) CALC BUN/CREAT (test code = 17 RATIO 2235) SODIUM (test code = 2231) 141 MEQ/L POTASSIUM (test code = 2228) 4.3 MEQ/L CHLORIDE (test code = 2215) 105 MEQ/L CARBON DIOXIDE (test code = 22 MEQ/L 2205) CALCIUM (test code = 2209) 9.7 MG/DL PROTEIN, TOTAL (test code = 7.2 G/DL 2228) ALBUMIN (test code = 2201) 4.5 G/DL CALC GLOBULIN (test code = 2.7 G/DL 2240) CALC A/G RATIO (test code = 1.7 RATIO 2234) BILIRUBIN, TOTAL (test code = 0.6 MG/DL 220) ALKALINE PHOSPHATASE (test 81 U/L code = 2204) AST (test code = 2218) 16 U/L ALT (test code = 2219) 18 U/L COMPREHENSIVE METABOLIC [id number] 00:00:00 Test Item Value Reference Range Interpretation Comments GLUCOSE (test code = 2217) 102 MG/DL BUN (test code = 2208) 16 MG/DL CREATININE (test code = 2214) 0.92 MG/DL eGFR AMER. (test code 102 ML/MIN/1.73 = 55141) eGFR NON- AMER. (test 88 ML/MIN/1.73 code = 65093) CALC BUN/CREAT (test code = 17 RATIO 2235) SODIUM (test code = 2231) 141 MEQ/L POTASSIUM (test code = 2228) 4.3 MEQ/L CHLORIDE (test code = 2215) 105 MEQ/L CARBON DIOXIDE (test code = 22 MEQ/L 2206) CALCIUM (test code = 2209) 9.7 MG/DL PROTEIN, TOTAL (test code = 7.2 G/DL 2228) ALBUMIN (test code = 2201) 4.5 G/DL CALC GLOBULIN (test code = 2.7 G/DL 2240) CALC A/G RATIO (test code = 1.7 RATIO 2234) BILIRUBIN, TOTAL (test code = 0.6 MG/DL 2206) ALKALINE PHOSPHATASE (test 81 U/L code = 2204) AST (test code = 2218) 16 U/L ALT (test code = 2219) 18 U/L PSA, FREE AND [id number] 00:00:00 Test Item Value Reference Range Interpretation Comments PROSTATIC SPECIFIC AG (test code = 1.46 NG/ML 478732) FREE PSA (test code = 020897) 0.24 NG/ML % FREE PSA (test code = 823434) 16 % PSA, FREE AND [id number] 00:00:00 Test Item Value Reference Range Interpretation Comments PROSTATIC SPECIFIC AG (test code = 1.46 NG/ML 407712) FREE PSA (test code = 300529) 0.24 NG/ML % FREE PSA (test code = 867649) 16 % [id number] 00:00:00 Test Item Value Reference Range Interpretation Comments TSH, THIRD GENERATION (test code 1.900 UIU/ML = 2821) [id number] 00:00:00 Test Item Value Reference Range Interpretation Comments TSH, THIRD GENERATION (test code 1.900 UIU/ML = 2821) LIPID [id number] 00:00:00 Test Item Value Reference Range Interpretation Comments CHOLESTEROL (test code = 2210) 238 MG/DL TRIGLYCERIDES (test code = 2232) 234 MG/DL HDL CHOLESTEROL (test code = 2220) 32 MG/DL CALC LDL CHOL (test code = 2237) 159 MG/DL RISK RATIO LDL/HDL (test code = 4.98 RATIO 2238) COMPREHENSIVE METABOLIC [id number] 00:00:00 Test Item Value Reference Range Interpretation Comments GLUCOSE (test code = 2217) 102 MG/DL BUN (test code = 2208) 16 MG/DL CREATININE (test code = 2214) 0.92 MG/DL eGFR AMER. (test code 102 ML/MIN/1.73 = 09277) eGFR NON- AMER. (test 88 ML/MIN/1.73 code = 31675) CALC BUN/CREAT (test code = 17 RATIO 2235) SODIUM (test code = 2231) 141 MEQ/L POTASSIUM (test code = 2228) 4.3 MEQ/L CHLORIDE (test code = 2215) 105 MEQ/L CARBON DIOXIDE (test code = 22 MEQ/L 2205) CALCIUM (test code = 2209) 9.7 MG/DL PROTEIN, TOTAL (test code = 7.2 G/DL 2228) ALBUMIN (test code = 2201) 4.5 G/DL CALC GLOBULIN (test code = 2.7 G/DL 0) CALC A/G RATIO (test code = 1.7 RATIO 2233) BILIRUBIN, TOTAL (test code = 0.6 MG/DL 2206) ALKALINE PHOSPHATASE (test 81 U/L code = 2204) AST (test code = 2218) 16 U/L ALT (test code = 2219) 18 U/L CBC W/AUTO [id number] 00:00:00 Test Item Value Reference Range Interpretation Comments WBC (test code = 1001) 6.5 K/UL RBC (test code = 1002) 5.20 M/UL HEMOGLOBIN (test code = 1003) 15.5 G/DL HEMATOCRIT (test code = 1004) 44.5 % MCV (test code = 1005) 85.6 fL MCH (test code = 1006) 29.8 PG MCHC (test code = 1007) 34.8 G/DL RDW (test code = 1038) 13.9 % NEUTROPHILS (test code = 1008) 58.3 % LYMPHOCYTES (test code = 1010) 31.2 % MONOCYTES (test code = 1011) 6.9 % EOSINOPHILS (test code = 1012) 3.1 % BASOPHILS (test code = 1013) 0.5 % PLATELET COUNT (test code = 1015) 207 K/UL CBC W/AUTO [id number] 00:00:00 Test Item Value Reference Range Interpretation Comments WBC (test code = 1001) 6.5 K/UL RBC (test code = 1002) 5.20 M/UL HEMOGLOBIN (test code = 1003) 15.5 G/DL HEMATOCRIT (test code = 1004) 44.5 % MCV (test code = 1005) 85.6 fL MCH (test code = 1006) 29.8 PG MCHC (test code = 1007) 34.8 G/DL RDW (test code = 1038) 13.9 % NEUTROPHILS (test code = 1008) 58.3 % LYMPHOCYTES (test code = 1010) 31.2 % MONOCYTES (test code = 1011) 6.9 % EOSINOPHILS (test code = 1012) 3.1 % BASOPHILS (test code = 1013) 0.5 % PLATELET COUNT (test code = 1015) 207 K/UL CBC W/AUTO [id number] 00:00:00 Test Item Value Reference Range Interpretation Comments WBC (test code = 1001) 6.5 K/UL RBC (test code = 1002) 5.20 M/UL HEMOGLOBIN (test code = 1003) 15.5 G/DL HEMATOCRIT (test code = 1004) 44.5 % MCV (test code = 1005) 85.6 fL MCH (test code = 1006) 29.8 PG MCHC (test code = 1007) 34.8 G/DL RDW (test code = 1038) 13.9 % NEUTROPHILS (test code = 1008) 58.3 % LYMPHOCYTES (test code = 1010) 31.2 % MONOCYTES (test code = 1011) 6.9 % EOSINOPHILS (test code = 1012) 3.1 % BASOPHILS (test code = 1013) 0.5 % PLATELET COUNT (test code = 1015) 207 K/UL HEMOGLOBIN [id number] 00:00:00 Test Item Value Reference Range Interpretation Comments HEMOGLOBIN A1c (test code = 73004) 5.9 % HEMOGLOBIN [id number] 00:00:00 Test Item Value Reference Range Interpretation Comments HEMOGLOBIN A1c (test code = 34860) 5.9 % HEMOGLOBIN [id number] 00:00:00 Test Item Value Reference Range Interpretation Comments HEMOGLOBIN A1c (test code = 62049) 5.9 % CBC W/AUTO [id number] 00:00:00 Test Item Value Reference Range Interpretation Comments WBC (test code = 1001) 6.5 K/UL RBC (test code = 1002) 5.20 M/UL HEMOGLOBIN (test code = 1003) 15.5 G/DL HEMATOCRIT (test code = 1004) 44.5 % MCV (test code = 1005) 85.6 fL MCH (test code = 1006) 29.8 PG MCHC (test code = 1007) 34.8 G/DL RDW (test code = 1038) 13.9 % NEUTROPHILS (test code = 1008) 58.3 % LYMPHOCYTES (test code = 1010) 31.2 % MONOCYTES (test code = 1011) 6.9 % EOSINOPHILS (test code = 1012) 3.1 % BASOPHILS (test code = 1013) 0.5 % PLATELET COUNT (test code = 1015) 207 K/UL CBC W/AUTO [id number] 00:00:00 Test Item Value Reference Range Interpretation Comments WBC (test code = 1001) 6.5 K/UL RBC (test code = 1002) 5.20 M/UL HEMOGLOBIN (test code = 1003) 15.5 G/DL HEMATOCRIT (test code = 1004) 44.5 % MCV (test code = 1005) 85.6 fL MCH (test code = 1006) 29.8 PG MCHC (test code = 1007) 34.8 G/DL RDW (test code = 1038) 13.9 % NEUTROPHILS (test code = 1008) 58.3 % LYMPHOCYTES (test code = 1010) 31.2 % MONOCYTES (test code = 1011) 6.9 % EOSINOPHILS (test code = 1012) 3.1 % BASOPHILS (test code = 1013) 0.5 % PLATELET COUNT (test code = 1015) 207 K/UL CBC W/AUTO [id number] 00:00:00 Test Item Value Reference Range Interpretation Comments WBC (test code = 1001) 6.5 K/UL RBC (test code = 1002) 5.20 M/UL HEMOGLOBIN (test code = 1003) 15.5 G/DL HEMATOCRIT (test code = 1004) 44.5 % MCV (test code = 1005) 85.6 fL MCH (test code = 1006) 29.8 PG MCHC (test code = 1007) 34.8 G/DL RDW (test code = 1038) 13.9 % NEUTROPHILS (test code = 1008) 58.3 % LYMPHOCYTES (test code = 1010) 31.2 % MONOCYTES (test code = 1011) 6.9 % EOSINOPHILS (test code = 1012) 3.1 % BASOPHILS (test code = 1013) 0.5 % PLATELET COUNT (test code = 1015) 207 K/UL HEMOGLOBIN [id number] 00:00:00 Test Item Value Reference Range Interpretation Comments HEMOGLOBIN A1c (test code = 89765) 5.9 % HEMOGLOBIN [id number] 00:00:00 Test Item Value Reference Range Interpretation Comments HEMOGLOBIN A1c (test code = 59634) 5.9 % HEMOGLOBIN [id number] 00:00:00 Test Item Value Reference Range Interpretation Comments HEMOGLOBIN A1c (test code = 29446) 5.9 % CBC W/AUTO [id number] 00:00:00 Test Item Value Reference Range Interpretation Comments WBC (test code = 1001) 6.5 K/UL RBC (test code = 1002) 5.20 M/UL HEMOGLOBIN (test code = 1003) 15.5 G/DL HEMATOCRIT (test code = 1004) 44.5 % MCV (test code = 1005) 85.6 fL MCH (test code = 1006) 29.8 PG MCHC (test code = 1007) 34.8 G/DL RDW (test code = 1038) 13.9 % NEUTROPHILS (test code = 1008) 58.3 % LYMPHOCYTES (test code = 1010) 31.2 % MONOCYTES (test code = 1011) 6.9 % EOSINOPHILS (test code = 1012) 3.1 % BASOPHILS (test code = 1013) 0.5 % PLATELET COUNT (test code = 1015) 207 K/UL CBC W/AUTO [id number] 00:00:00 Test Item Value Reference Range Interpretation Comments WBC (test code = 1001) 6.5 K/UL RBC (test code = 1002) 5.20 M/UL HEMOGLOBIN (test code = 1003) 15.5 G/DL HEMATOCRIT (test code = 1004) 44.5 % MCV (test code = 1005) 85.6 fL MCH (test code = 1006) 29.8 PG MCHC (test code = 1007) 34.8 G/DL RDW (test code = 1038) 13.9 % NEUTROPHILS (test code = 1008) 58.3 % LYMPHOCYTES (test code = 1010) 31.2 % MONOCYTES (test code = 1011) 6.9 % EOSINOPHILS (test code = 1012) 3.1 % BASOPHILS (test code = 1013) 0.5 % PLATELET COUNT (test code = 1015) 207 K/UL HEMOGLOBIN [id number] 00:00:00 Test Item Value Reference Range Interpretation Comments HEMOGLOBIN A1c (test code = 60381) 5.9 % HEMOGLOBIN [id number] 00:00:00 Test Item Value Reference Range Interpretation Comments HEMOGLOBIN A1c (test code = 58993) 5.9 % HEMOGLOBIN [id number] 00:00:00 Test Item Value Reference Range Interpretation Comments HEMOGLOBIN A1c (test code = 26728) 5.9 % HEMOGLOBIN [id number] 00:00:00 Test Item Value Reference Range Interpretation Comments HEMOGLOBIN A1c (test code = 81842) 5.9 % PSA, [id number] 00:00:00 Test Item Value Reference Range Interpretation Comments PSA, TOTAL (test code = 2606) 1.49 NG/ML PSA, [id number] 00:00:00 Test Item Value Reference Range Interpretation Comments PSA, TOTAL (test code = 2606) 1.49 NG/ML PSA, [id number] 00:00:00 Test Item Value Reference Range Interpretation Comments PSA, TOTAL (test code = 2606) 1.49 NG/ML CBC W/AUTO [id number] 00:00:00 Test Item Value Reference Range Interpretation Comments WBC (test code = 1001) 8.3 K/UL RBC (test code = 1002) 4.98 M/UL HEMOGLOBIN (test code = 1003) 14.9 G/DL HEMATOCRIT (test code = 1004) 43.7 % MCV (test code = 1005) 87.8 fL MCH (test code = 1006) 29.9 PG MCHC (test code = 1007) 34.1 G/DL RDW (test code = 1038) 13.9 % NEUTROPHILS (test code = 1008) 61.8 % LYMPHOCYTES (test code = 1010) 29.2 % MONOCYTES (test code = 1011) 6.7 % EOSINOPHILS (test code = 1012) 1.9 % BASOPHILS (test code = 1013) 0.4 % PLATELET COUNT (test code = 1015) 180 K/UL CBC W/AUTO [id number] 00:00:00 Test Item Value Reference Range Interpretation Comments WBC (test code = 1001) 8.3 K/UL RBC (test code = 1002) 4.98 M/UL HEMOGLOBIN (test code = 1003) 14.9 G/DL HEMATOCRIT (test code = 1004) 43.7 % MCV (test code = 1005) 87.8 fL MCH (test code = 1006) 29.9 PG MCHC (test code = 1007) 34.1 G/DL RDW (test code = 1038) 13.9 % NEUTROPHILS (test code = 1008) 61.8 % LYMPHOCYTES (test code = 1010) 29.2 % MONOCYTES (test code = 1011) 6.7 % EOSINOPHILS (test code = 1012) 1.9 % BASOPHILS (test code = 1013) 0.4 % PLATELET COUNT (test code = 1015) 180 K/UL CBC W/AUTO [id number] 00:00:00 Test Item Value Reference Range Interpretation Comments WBC (test code = 1001) 8.3 K/UL RBC (test code = 1002) 4.98 M/UL HEMOGLOBIN (test code = 1003) 14.9 G/DL HEMATOCRIT (test code = 1004) 43.7 % MCV (test code = 1005) 87.8 fL MCH (test code = 1006) 29.9 PG MCHC (test code = 1007) 34.1 G/DL RDW (test code = 1038) 13.9 % NEUTROPHILS (test code = 1008) 61.8 % LYMPHOCYTES (test code = 1010) 29.2 % MONOCYTES (test code = 1011) 6.7 % EOSINOPHILS (test code = 1012) 1.9 % BASOPHILS (test code = 1013) 0.4 % PLATELET COUNT (test code = 1015) 180 K/UL [id number] 00:00:00 Test Item Value Reference Range Interpretation Comments TSH (test code = 2821) 2.380 UIU/ML [id number] 00:00:00 Test Item Value Reference Range Interpretation Comments TSH (test code = 2821) 2.380 UIU/ML [id number] 00:00:00 Test Item Value Reference Range Interpretation Comments TSH (test code = 2821) 2.380 UIU/ML COMPREHENSIVE METABOLIC [id number] 00:00:00 Test Item Value Reference Range Interpretation Comments GLUCOSE (test code = 2217) 113 MG/DL BUN (test code = 2208) 17 MG/DL CREATININE (test code = 2214) 0.85 MG/DL eGFR AMER. (test code 107 ML/MIN/1.73 = 72961) eGFR NON- AMER. (test 93 ML/MIN/1.73 code = 99370) CALC BUN/CREAT (test code = 20 RATIO 2235) SODIUM (test code = 2231) 138 MEQ/L POTASSIUM (test code = 2228) 4.1 MEQ/L CHLORIDE (test code = 2215) 101 MEQ/L CARBON DIOXIDE (test code = 24 MEQ/L 2205) CALCIUM (test code = 2209) 9.6 MG/DL PROTEIN, TOTAL (test code = 7.3 G/DL 2228) ALBUMIN (test code = 2201) 4.4 G/DL CALC GLOBULIN (test code = 2.9 G/DL 2240) CALC A/G RATIO (test code = 1.5 RATIO 2234) BILIRUBIN, TOTAL (test code = 0.6 MG/DL 2206) ALKALINE PHOSPHATASE (test 75 U/L code = 2204) AST (test code = 2218) 19 U/L ALT (test code = 2219) 18 U/L COMPREHENSIVE METABOLIC [id number] 00:00:00 Test Item Value Reference Range Interpretation Comments GLUCOSE (test code = 2217) 113 MG/DL BUN (test code = 2208) 17 MG/DL CREATININE (test code = 2214) 0.85 MG/DL eGFR AMER. (test code 107 ML/MIN/1.73 = 11809) eGFR NON- AMER. (test 93 ML/MIN/1.73 code = 96226) CALC BUN/CREAT (test code = 20 RATIO 2235) SODIUM (test code = 2231) 138 MEQ/L POTASSIUM (test code = 2228) 4.1 MEQ/L CHLORIDE (test code = 2215) 101 MEQ/L CARBON DIOXIDE (test code = 24 MEQ/L 2205) CALCIUM (test code = 2209) 9.6 MG/DL PROTEIN, TOTAL (test code = 7.3 G/DL 2228) ALBUMIN (test code = 2201) 4.4 G/DL CALC GLOBULIN (test code = 2.9 G/DL 2239) CALC A/G RATIO (test code = 1.5 RATIO 2234) BILIRUBIN, TOTAL (test code = 0.6 MG/DL 2206) ALKALINE PHOSPHATASE (test 75 U/L code = 2204) AST (test code = 2218) 19 U/L ALT (test code = 2219) 18 U/L LIPID [id number] 00:00:00 Test Item Value Reference Range Interpretation Comments CHOLESTEROL (test code = 2210) 241 MG/DL TRIGLYCERIDES (test code = 2232) 239 MG/DL HDL CHOLESTEROL (test code = 2220) 32 MG/DL CALC LDL CHOL (test code = 2237) 161 MG/DL RISK RATIO LDL/HDL (test code = 5.04 RATIO 2238) LIPID [id number] 00:00:00 Test Item Value Reference Range Interpretation Comments CHOLESTEROL (test code = 2210) 241 MG/DL TRIGLYCERIDES (test code = 2232) 239 MG/DL HDL CHOLESTEROL (test code = 2220) 32 MG/DL CALC LDL CHOL (test code = 2237) 161 MG/DL RISK RATIO LDL/HDL (test code = 5.04 RATIO 2238) HEMOGLOBIN [id number] 00:00:00 Test Item Value Reference Range Interpretation Comments HEMOGLOBIN A1c (test code = 92378) 5.9 % HEMOGLOBIN [id number] 00:00:00 Test Item Value Reference Range Interpretation Comments HEMOGLOBIN A1c (test code = 43335) 5.9 % HEMOGLOBIN [id number] 00:00:00 Test Item Value Reference Range Interpretation Comments HEMOGLOBIN A1c (test code = 15319) 5.9 % PSA, [id number] 00:00:00 Test Item Value Reference Range Interpretation Comments PSA, TOTAL (test code = 2606) 1.49 NG/ML PSA, [id number] 00:00:00 Test Item Value Reference Range Interpretation Comments PSA, TOTAL (test code = 2606) 1.49 NG/ML PSA, [id number] 00:00:00 Test Item Value Reference Range Interpretation Comments PSA, TOTAL (test code = 2606) 1.49 NG/ML CBC W/AUTO [id number] 00:00:00 Test Item Value Reference Range Interpretation Comments WBC (test code = 1001) 8.3 K/UL RBC (test code = 1002) 4.98 M/UL HEMOGLOBIN (test code = 1003) 14.9 G/DL HEMATOCRIT (test code = 1004) 43.7 % MCV (test code = 1005) 87.8 fL MCH (test code = 1006) 29.9 PG MCHC (test code = 1007) 34.1 G/DL RDW (test code = 1038) 13.9 % NEUTROPHILS (test code = 1008) 61.8 % LYMPHOCYTES (test code = 1010) 29.2 % MONOCYTES (test code = 1011) 6.7 % EOSINOPHILS (test code = 1012) 1.9 % BASOPHILS (test code = 1013) 0.4 % PLATELET COUNT (test code = 1015) 180 K/UL CBC W/AUTO [id number] 00:00:00 Test Item Value Reference Range Interpretation Comments WBC (test code = 1001) 8.3 K/UL RBC (test code = 1002) 4.98 M/UL HEMOGLOBIN (test code = 1003) 14.9 G/DL HEMATOCRIT (test code = 1004) 43.7 % MCV (test code = 1005) 87.8 fL MCH (test code = 1006) 29.9 PG MCHC (test code = 1007) 34.1 G/DL RDW (test code = 1038) 13.9 % NEUTROPHILS (test code = 1008) 61.8 % LYMPHOCYTES (test code = 1010) 29.2 % MONOCYTES (test code = 1011) 6.7 % EOSINOPHILS (test code = 1012) 1.9 % BASOPHILS (test code = 1013) 0.4 % PLATELET COUNT (test code = 1015) 180 K/UL CBC W/AUTO [id number] 00:00:00 Test Item Value Reference Range Interpretation Comments WBC (test code = 1001) 8.3 K/UL RBC (test code = 1002) 4.98 M/UL HEMOGLOBIN (test code = 1003) 14.9 G/DL HEMATOCRIT (test code = 1004) 43.7 % MCV (test code = 1005) 87.8 fL MCH (test code = 1006) 29.9 PG MCHC (test code = 1007) 34.1 G/DL RDW (test code = 1038) 13.9 % NEUTROPHILS (test code = 1008) 61.8 % LYMPHOCYTES (test code = 1010) 29.2 % MONOCYTES (test code = 1011) 6.7 % EOSINOPHILS (test code = 1012) 1.9 % BASOPHILS (test code = 1013) 0.4 % PLATELET COUNT (test code = 1015) 180 K/UL [id number] 00:00:00 Test Item Value Reference Range Interpretation Comments TSH (test code = 2821) 2.380 UIU/ML [id number] 00:00:00 Test Item Value Reference Range Interpretation Comments TSH (test code = 2821) 2.380 UIU/ML [id number] 00:00:00 Test Item Value Reference Range Interpretation Comments TSH (test code = 2821) 2.380 UIU/ML COMPREHENSIVE METABOLIC [id number] 00:00:00 Test Item Value Reference Range Interpretation Comments GLUCOSE (test code = 2217) 113 MG/DL BUN (test code = 2208) 17 MG/DL CREATININE (test code = 2214) 0.85 MG/DL eGFR AMER. (test code 107 ML/MIN/1.73 = 10807) eGFR NON- AMER. (test 93 ML/MIN/1.73 code = 08594) CALC BUN/CREAT (test code = 20 RATIO 2235) SODIUM (test code = 2231) 138 MEQ/L POTASSIUM (test code = 2228) 4.1 MEQ/L CHLORIDE (test code = 2215) 101 MEQ/L CARBON DIOXIDE (test code = 24 MEQ/L 2205) CALCIUM (test code = 2209) 9.6 MG/DL PROTEIN, TOTAL (test code = 7.3 G/DL 2228) ALBUMIN (test code = 2201) 4.4 G/DL CALC GLOBULIN (test code = 2.9 G/DL 2240) CALC A/G RATIO (test code = 1.5 RATIO 2234) BILIRUBIN, TOTAL (test code = 0.6 MG/DL 2206) ALKALINE PHOSPHATASE (test 75 U/L code = 2204) AST (test code = 2218) 19 U/L ALT (test code = 2219) 18 U/L COMPREHENSIVE METABOLIC [id number] 00:00:00 Test Item Value Reference Range Interpretation Comments GLUCOSE (test code = 2217) 113 MG/DL BUN (test code = 2208) 17 MG/DL CREATININE (test code = 2214) 0.85 MG/DL eGFR AMER. (test code 107 ML/MIN/1.73 = 05285) eGFR NON- AMER. (test 93 ML/MIN/1.73 code = 92859) CALC BUN/CREAT (test code = 20 RATIO 2235) SODIUM (test code = 2231) 138 MEQ/L POTASSIUM (test code = 2228) 4.1 MEQ/L CHLORIDE (test code = 2215) 101 MEQ/L CARBON DIOXIDE (test code = 24 MEQ/L 2205) CALCIUM (test code = 2209) 9.6 MG/DL PROTEIN, TOTAL (test code = 7.3 G/DL 2228) ALBUMIN (test code = 2201) 4.4 G/DL CALC GLOBULIN (test code = 2.9 G/DL 2240) CALC A/G RATIO (test code = 1.5 RATIO 2234) BILIRUBIN, TOTAL (test code = 0.6 MG/DL 2206) ALKALINE PHOSPHATASE (test 75 U/L code = 2204) AST (test code = 2218) 19 U/L ALT (test code = 2219) 18 U/L LIPID [id number] 00:00:00 Test Item Value Reference Range Interpretation Comments CHOLESTEROL (test code = 2210) 241 MG/DL TRIGLYCERIDES (test code = 2232) 239 MG/DL HDL CHOLESTEROL (test code = 2220) 32 MG/DL CALC LDL CHOL (test code = 2237) 161 MG/DL RISK RATIO LDL/HDL (test code = 5.04 RATIO 2238) LIPID [id number] 00:00:00 Test Item Value Reference Range Interpretation Comments CHOLESTEROL (test code = 2210) 241 MG/DL TRIGLYCERIDES (test code = 2232) 239 MG/DL HDL CHOLESTEROL (test code = 2220) 32 MG/DL CALC LDL CHOL (test code = 2237) 161 MG/DL RISK RATIO LDL/HDL (test code = 5.04 RATIO 2238) HEMOGLOBIN [id number] 00:00:00 Test Item Value Reference Range Interpretation Comments HEMOGLOBIN A1c (test code = 62652) 5.9 % HEMOGLOBIN [id number] 00:00:00 Test Item Value Reference Range Interpretation Comments HEMOGLOBIN A1c (test code = 74533) 5.9 % HEMOGLOBIN [id number] 00:00:00 Test Item Value Reference Range Interpretation Comments HEMOGLOBIN A1c (test code = 10692) 5.9 % PSA, [id number] 00:00:00 Test Item Value Reference Range Interpretation Comments PSA, TOTAL (test code = 2606) 1.49 NG/ML PSA, [id number] 00:00:00 Test Item Value Reference Range Interpretation Comments PSA, TOTAL (test code = 2606) 1.49 NG/ML CBC W/AUTO [id number] 00:00:00 Test Item Value Reference Range Interpretation Comments WBC (test code = 1001) 8.3 K/UL RBC (test code = 1002) 4.98 M/UL HEMOGLOBIN (test code = 1003) 14.9 G/DL HEMATOCRIT (test code = 1004) 43.7 % MCV (test code = 1005) 87.8 fL MCH (test code = 1006) 29.9 PG MCHC (test code = 1007) 34.1 G/DL RDW (test code = 1038) 13.9 % NEUTROPHILS (test code = 1008) 61.8 % LYMPHOCYTES (test code = 1010) 29.2 % MONOCYTES (test code = 1011) 6.7 % EOSINOPHILS (test code = 1012) 1.9 % BASOPHILS (test code = 1013) 0.4 % PLATELET COUNT (test code = 1015) 180 K/UL CBC W/AUTO [id number] 00:00:00 Test Item Value Reference Range Interpretation Comments WBC (test code = 1001) 8.3 K/UL RBC (test code = 1002) 4.98 M/UL HEMOGLOBIN (test code = 1003) 14.9 G/DL HEMATOCRIT (test code = 1004) 43.7 % MCV (test code = 1005) 87.8 fL MCH (test code = 1006) 29.9 PG MCHC (test code = 1007) 34.1 G/DL RDW (test code = 1038) 13.9 % NEUTROPHILS (test code = 1008) 61.8 % LYMPHOCYTES (test code = 1010) 29.2 % MONOCYTES (test code = 1011) 6.7 % EOSINOPHILS (test code = 1012) 1.9 % BASOPHILS (test code = 1013) 0.4 % PLATELET COUNT (test code = 1015) 180 K/UL [id number] 00:00:00 Test Item Value Reference Range Interpretation Comments TSH (test code = 2821) 2.380 UIU/ML [id number] 00:00:00 Test Item Value Reference Range Interpretation Comments TSH (test code = 2821) 2.380 UIU/ML COMPREHENSIVE METABOLIC [id number] 00:00:00 Test Item Value Reference Range Interpretation Comments GLUCOSE (test code = 2217) 113 MG/DL BUN (test code = 2208) 17 MG/DL CREATININE (test code = 2214) 0.85 MG/DL eGFR AMER. (test code 107 ML/MIN/1.73 = 88849) eGFR NON- AMER. (test 93 ML/MIN/1.73 code = 45918) CALC BUN/CREAT (test code = 20 RATIO 2235) SODIUM (test code = 2231) 138 MEQ/L POTASSIUM (test code = 2228) 4.1 MEQ/L CHLORIDE (test code = 2215) 101 MEQ/L CARBON DIOXIDE (test code = 24 MEQ/L 2206) CALCIUM (test code = 2209) 9.6 MG/DL PROTEIN, TOTAL (test code = 7.3 G/DL 2228) ALBUMIN (test code = 2201) 4.4 G/DL CALC GLOBULIN (test code = 2.9 G/DL 2240) CALC A/G RATIO (test code = 1.5 RATIO 2234) BILIRUBIN, TOTAL (test code = 0.6 MG/DL 2206) ALKALINE PHOSPHATASE (test 75 U/L code = 2204) AST (test code = 2218) 19 U/L ALT (test code = 2219) 18 U/L LIPID [id number] 00:00:00 Test Item Value Reference Range Interpretation Comments CHOLESTEROL (test code = 2210) 241 MG/DL TRIGLYCERIDES (test code = 2232) 239 MG/DL HDL CHOLESTEROL (test code = 2220) 32 MG/DL CALC LDL CHOL (test code = 2237) 161 MG/DL RISK RATIO LDL/HDL (test code = 5.04 RATIO 2238) COMPREHENSIVE METABOLIC [id number] 00:00:00 Test Item Value Reference Range Interpretation Comments GLUCOSE (test code = 2217) 111 MG/DL BUN (test code = 2208) 14 MG/DL CREATININE (test code = 2214) 0.76 MG/DL eGFR AMER. (test code 113 ML/MIN/1.73 = 43510) eGFR NON- AMER. (test 97 ML/MIN/1.73 code = 06393) CALC BUN/CREAT (test code = 18 RATIO 2235) SODIUM (test code = 2231) 140 MEQ/L POTASSIUM (test code = 2228) 4.2 MEQ/L CHLORIDE (test code = 2215) 103 MEQ/L CARBON DIOXIDE (test code = 25 MEQ/L 2205) CALCIUM (test code = 2209) 9.1 MG/DL PROTEIN, TOTAL (test code = 7.2 G/DL 2228) ALBUMIN (test code = 2201) 4.3 G/DL CALC GLOBULIN (test code = 2.9 G/DL 2240) CALC A/G RATIO (test code = 1.5 RATIO 2234) BILIRUBIN, TOTAL (test code = 0.4 MG/DL 2206) ALKALINE PHOSPHATASE (test 76 U/L code = 2204) AST (test code = 2218) 23 U/L ALT (test code = 2219) 26 U/L COMPREHENSIVE METABOLIC [id number] 00:00:00 Test Item Value Reference Range Interpretation Comments GLUCOSE (test code = 2217) 111 MG/DL BUN (test code = 2208) 14 MG/DL CREATININE (test code = 2214) 0.76 MG/DL eGFR AMER. (test code 113 ML/MIN/1.73 = 12647) eGFR NON- AMER. (test 97 ML/MIN/1.73 code = 65173) CALC BUN/CREAT (test code = 18 RATIO 2235) SODIUM (test code = 2231) 140 MEQ/L POTASSIUM (test code = 2228) 4.2 MEQ/L CHLORIDE (test code = 2215) 103 MEQ/L CARBON DIOXIDE (test code = 25 MEQ/L 220) CALCIUM (test code = 2209) 9.1 MG/DL PROTEIN, TOTAL (test code = 7.2 G/DL 2228) ALBUMIN (test code = 2201) 4.3 G/DL CALC GLOBULIN (test code = 2.9 G/DL 224) CALC A/G RATIO (test code = 1.5 RATIO 2233) BILIRUBIN, TOTAL (test code = 0.4 MG/DL 2206) ALKALINE PHOSPHATASE (test 76 U/L code = 2204) AST (test code = 2218) 23 U/L ALT (test code = 2219) 26 U/L CBC W/AUTO [id number] 00:00:00 Test Item Value Reference Range Interpretation Comments WBC (test code = 1001) 8.3 K/UL RBC (test code = 1002) 5.10 M/UL HEMOGLOBIN (test code = 1003) 15.0 G/DL HEMATOCRIT (test code = 1004) 45.2 % MCV (test code = 1005) 88.6 fL MCH (test code = 1006) 29.4 PG MCHC (test code = 1007) 33.2 G/DL RDW (test code = 1038) 14.5 % NEUTROPHILS (test code = 1008) 60.4 % LYMPHOCYTES (test code = 1010) 29.2 % MONOCYTES (test code = 1011) 5.8 % EOSINOPHILS (test code = 1012) 4.2 % BASOPHILS (test code = 1013) 0.4 % PLATELET COUNT (test code = 1015) 165 K/UL CBC W/AUTO [id number] 00:00:00 Test Item Value Reference Range Interpretation Comments WBC (test code = 1001) 8.3 K/UL RBC (test code = 1002) 5.10 M/UL HEMOGLOBIN (test code = 1003) 15.0 G/DL HEMATOCRIT (test code = 1004) 45.2 % MCV (test code = 1005) 88.6 fL MCH (test code = 1006) 29.4 PG MCHC (test code = 1007) 33.2 G/DL RDW (test code = 1038) 14.5 % NEUTROPHILS (test code = 1008) 60.4 % LYMPHOCYTES (test code = 1010) 29.2 % MONOCYTES (test code = 1011) 5.8 % EOSINOPHILS (test code = 1012) 4.2 % BASOPHILS (test code = 1013) 0.4 % PLATELET COUNT (test code = 1015) 165 K/UL CBC W/AUTO [id number] 00:00:00 Test Item Value Reference Range Interpretation Comments WBC (test code = 1001) 8.3 K/UL RBC (test code = 1002) 5.10 M/UL HEMOGLOBIN (test code = 1003) 15.0 G/DL HEMATOCRIT (test code = 1004) 45.2 % MCV (test code = 1005) 88.6 fL MCH (test code = 1006) 29.4 PG MCHC (test code = 1007) 33.2 G/DL RDW (test code = 1038) 14.5 % NEUTROPHILS (test code = 1008) 60.4 % LYMPHOCYTES (test code = 1010) 29.2 % MONOCYTES (test code = 1011) 5.8 % EOSINOPHILS (test code = 1012) 4.2 % BASOPHILS (test code = 1013) 0.4 % PLATELET COUNT (test code = 1015) 165 K/UL COMPREHENSIVE METABOLIC [id number] 00:00:00 Test Item Value Reference Range Interpretation Comments GLUCOSE (test code = 2217) 111 MG/DL BUN (test code = 2208) 14 MG/DL CREATININE (test code = 2214) 0.76 MG/DL eGFR AMER. (test code 113 ML/MIN/1.73 = 91670) eGFR NON- AMER. (test 97 ML/MIN/1.73 code = 42070) CALC BUN/CREAT (test code = 18 RATIO 2235) SODIUM (test code = 2231) 140 MEQ/L POTASSIUM (test code = 2228) 4.2 MEQ/L CHLORIDE (test code = 2215) 103 MEQ/L CARBON DIOXIDE (test code = 25 MEQ/L 2205) CALCIUM (test code = 2209) 9.1 MG/DL PROTEIN, TOTAL (test code = 7.2 G/DL 2228) ALBUMIN (test code = 2201) 4.3 G/DL CALC GLOBULIN (test code = 2.9 G/DL 2240) CALC A/G RATIO (test code = 1.5 RATIO 2234) BILIRUBIN, TOTAL (test code = 0.4 MG/DL 2206) ALKALINE PHOSPHATASE (test 76 U/L code = 2204) AST (test code = 2218) 23 U/L ALT (test code = 2219) 26 U/L COMPREHENSIVE METABOLIC [id number] 00:00:00 Test Item Value Reference Range Interpretation Comments GLUCOSE (test code = 2217) 111 MG/DL BUN (test code = 2208) 14 MG/DL CREATININE (test code = 2214) 0.76 MG/DL eGFR AMER. (test code 113 ML/MIN/1.73 = 44531) eGFR NON- AMER. (test 97 ML/MIN/1.73 code = 83060) CALC BUN/CREAT (test code = 18 RATIO 2235) SODIUM (test code = 2231) 140 MEQ/L POTASSIUM (test code = 2228) 4.2 MEQ/L CHLORIDE (test code = 2215) 103 MEQ/L CARBON DIOXIDE (test code = 25 MEQ/L 2205) CALCIUM (test code = 2209) 9.1 MG/DL PROTEIN, TOTAL (test code = 7.2 G/DL 2228) ALBUMIN (test code = 2201) 4.3 G/DL CALC GLOBULIN (test code = 2.9 G/DL 2240) CALC A/G RATIO (test code = 1.5 RATIO 2234) BILIRUBIN, TOTAL (test code = 0.4 MG/DL 2206) ALKALINE PHOSPHATASE (test 76 U/L code = 2204) AST (test code = 2218) 23 U/L ALT (test code = 2219) 26 U/L CBC W/AUTO [id number] 00:00:00 Test Item Value Reference Range Interpretation Comments WBC (test code = 1001) 8.3 K/UL RBC (test code = 1002) 5.10 M/UL HEMOGLOBIN (test code = 1003) 15.0 G/DL HEMATOCRIT (test code = 1004) 45.2 % MCV (test code = 1005) 88.6 fL MCH (test code = 1006) 29.4 PG MCHC (test code = 1007) 33.2 G/DL RDW (test code = 1038) 14.5 % NEUTROPHILS (test code = 1008) 60.4 % LYMPHOCYTES (test code = 1010) 29.2 % MONOCYTES (test code = 1011) 5.8 % EOSINOPHILS (test code = 1012) 4.2 % BASOPHILS (test code = 1013) 0.4 % PLATELET COUNT (test code = 1015) 165 K/UL CBC W/AUTO [id number] 00:00:00 Test Item Value Reference Range Interpretation Comments WBC (test code = 1001) 8.3 K/UL RBC (test code = 1002) 5.10 M/UL HEMOGLOBIN (test code = 1003) 15.0 G/DL HEMATOCRIT (test code = 1004) 45.2 % MCV (test code = 1005) 88.6 fL MCH (test code = 1006) 29.4 PG MCHC (test code = 1007) 33.2 G/DL RDW (test code = 1038) 14.5 % NEUTROPHILS (test code = 1008) 60.4 % LYMPHOCYTES (test code = 1010) 29.2 % MONOCYTES (test code = 1011) 5.8 % EOSINOPHILS (test code = 1012) 4.2 % BASOPHILS (test code = 1013) 0.4 % PLATELET COUNT (test code = 1015) 165 K/UL CBC W/AUTO [id number] 00:00:00 Test Item Value Reference Range Interpretation Comments WBC (test code = 1001) 8.3 K/UL RBC (test code = 1002) 5.10 M/UL HEMOGLOBIN (test code = 1003) 15.0 G/DL HEMATOCRIT (test code = 1004) 45.2 % MCV (test code = 1005) 88.6 fL MCH (test code = 1006) 29.4 PG MCHC (test code = 1007) 33.2 G/DL RDW (test code = 1038) 14.5 % NEUTROPHILS (test code = 1008) 60.4 % LYMPHOCYTES (test code = 1010) 29.2 % MONOCYTES (test code = 1011) 5.8 % EOSINOPHILS (test code = 1012) 4.2 % BASOPHILS (test code = 1013) 0.4 % PLATELET COUNT (test code = 1015) 165 K/UL COMPREHENSIVE METABOLIC [id number] 00:00:00 Test Item Value Reference Range Interpretation Comments GLUCOSE (test code = 2217) 111 MG/DL BUN (test code = 2208) 14 MG/DL CREATININE (test code = 2214) 0.76 MG/DL eGFR AMER. (test code 113 ML/MIN/1.73 = 71169) eGFR NON- AMER. (test 97 ML/MIN/1.73 code = 58878) CALC BUN/CREAT (test code = 18 RATIO 2235) SODIUM (test code = 2231) 140 MEQ/L POTASSIUM (test code = 2228) 4.2 MEQ/L CHLORIDE (test code = 2215) 103 MEQ/L CARBON DIOXIDE (test code = 25 MEQ/L 220) CALCIUM (test code = 2209) 9.1 MG/DL PROTEIN, TOTAL (test code = 7.2 G/DL 2228) ALBUMIN (test code = 2201) 4.3 G/DL CALC GLOBULIN (test code = 2.9 G/DL 2240) CALC A/G RATIO (test code = 1.5 RATIO 2234) BILIRUBIN, TOTAL (test code = 0.4 MG/DL 2206) ALKALINE PHOSPHATASE (test 76 U/L code = 2204) AST (test code = 2218) 23 U/L ALT (test code = 2219) 26 U/L CBC W/AUTO [id number] 00:00:00 Test Item Value Reference Range Interpretation Comments WBC (test code = 1001) 8.3 K/UL RBC (test code = 1002) 5.10 M/UL HEMOGLOBIN (test code = 1003) 15.0 G/DL HEMATOCRIT (test code = 1004) 45.2 % MCV (test code = 1005) 88.6 fL MCH (test code = 1006) 29.4 PG MCHC (test code = 1007) 33.2 G/DL RDW (test code = 1038) 14.5 % NEUTROPHILS (test code = 1008) 60.4 % LYMPHOCYTES (test code = 1010) 29.2 % MONOCYTES (test code = 1011) 5.8 % EOSINOPHILS (test code = 1012) 4.2 % BASOPHILS (test code = 1013) 0.4 % PLATELET COUNT (test code = 1015) 165 K/UL CBC W/AUTO [id number] 00:00:00 Test Item Value Reference Range Interpretation Comments WBC (test code = 1001) 8.3 K/UL RBC (test code = 1002) 5.10 M/UL HEMOGLOBIN (test code = 1003) 15.0 G/DL HEMATOCRIT (test code = 1004) 45.2 % MCV (test code = 1005) 88.6 fL MCH (test code = 1006) 29.4 PG MCHC (test code = 1007) 33.2 G/DL RDW (test code = 1038) 14.5 % NEUTROPHILS (test code = 1008) 60.4 % LYMPHOCYTES (test code = 1010) 29.2 % MONOCYTES (test code = 1011) 5.8 % EOSINOPHILS (test code = 1012) 4.2 % BASOPHILS (test code = 1013) 0.4 % PLATELET COUNT (test code = 1015) 165 K/UL COMPREHENSIVE METABOLIC [id number] 00:00:00 Test Item Value Reference Range Interpretation Comments GLUCOSE (test code = 2217) 114 MG/DL BUN (test code = 2208) 21 MG/DL CREATININE (test code = 2214) 0.95 MG/DL eGFR AMER. (test code 99 ML/MIN/1.73 = 73560) eGFR NON- AMER. (test 85 ML/MIN/1.73 code = 57865) CALC BUN/CREAT (test code = 22 RATIO 2235) SODIUM (test code = 2231) 140 MEQ/L POTASSIUM (test code = 2228) 4.7 MEQ/L CHLORIDE (test code = 2215) 104 MEQ/L CARBON DIOXIDE (test code = 25 MEQ/L 2206) CALCIUM (test code = 2209) 8.8 MG/DL PROTEIN, TOTAL (test code = 6.8 G/DL 2228) ALBUMIN (test code = 2201) 4.2 G/DL CALC GLOBULIN (test code = 2.6 G/DL 0) CALC A/G RATIO (test code = 1.6 RATIO 2234) BILIRUBIN, TOTAL (test code = 0.4 MG/DL 2206) ALKALINE PHOSPHATASE (test 70 U/L code = 2204) AST (test code = 2218) 18 U/L ALT (test code = 2219) 25 U/L COMPREHENSIVE METABOLIC [id number] 00:00:00 Test Item Value Reference Range Interpretation Comments GLUCOSE (test code = 2217) 114 MG/DL BUN (test code = 2208) 21 MG/DL CREATININE (test code = 2214) 0.95 MG/DL eGFR AMER. (test code 99 ML/MIN/1.73 = 48639) eGFR NON- AMER. (test 85 ML/MIN/1.73 code = 02409) CALC BUN/CREAT (test code = 22 RATIO 2235) SODIUM (test code = 2231) 140 MEQ/L POTASSIUM (test code = 2228) 4.7 MEQ/L CHLORIDE (test code = 2215) 104 MEQ/L CARBON DIOXIDE (test code = 25 MEQ/L 2205) CALCIUM (test code = 2209) 8.8 MG/DL PROTEIN, TOTAL (test code = 6.8 G/DL 2228) ALBUMIN (test code = 2201) 4.2 G/DL CALC GLOBULIN (test code = 2.6 G/DL 224) CALC A/G RATIO (test code = 1.6 RATIO 2234) BILIRUBIN, TOTAL (test code = 0.4 MG/DL 2206) ALKALINE PHOSPHATASE (test 70 U/L code = 2204) AST (test code = 2218) 18 U/L ALT (test code = 2219) 25 U/L LIPID [id number] 00:00:00 Test Item Value Reference Range Interpretation Comments CHOLESTEROL (test code = 2210) 230 MG/DL TRIGLYCERIDES (test code = 2232) 227 MG/DL HDL CHOLESTEROL (test code = 2220) 36 MG/DL CALC LDL CHOL (test code = 2237) 149 MG/DL RISK RATIO LDL/HDL (test code = 4.13 RATIO 2238) LIPID [id number] 00:00:00 Test Item Value Reference Range Interpretation Comments CHOLESTEROL (test code = 2210) 230 MG/DL TRIGLYCERIDES (test code = 2232) 227 MG/DL HDL CHOLESTEROL (test code = 2220) 36 MG/DL CALC LDL CHOL (test code = 2237) 149 MG/DL RISK RATIO LDL/HDL (test code = 4.13 RATIO 2238) HEMOGLOBIN [id number] 00:00:00 Test Item Value Reference Range Interpretation Comments HEMOGLOBIN A1c (test code = 66143) 5.8 % HEMOGLOBIN [id number] 00:00:00 Test Item Value Reference Range Interpretation Comments HEMOGLOBIN A1c (test code = 13259) 5.8 % HEMOGLOBIN [id number] 00:00:00 Test Item Value Reference Range Interpretation Comments HEMOGLOBIN A1c (test code = 41530) 5.8 % COMPREHENSIVE METABOLIC [id number] 00:00:00 Test Item Value Reference Range Interpretation Comments GLUCOSE (test code = 2217) 114 MG/DL BUN (test code = 2208) 21 MG/DL CREATININE (test code = 2214) 0.95 MG/DL eGFR AMER. (test code 99 ML/MIN/1.73 = 84083) eGFR NON- AMER. (test 85 ML/MIN/1.73 code = 55760) CALC BUN/CREAT (test code = 22 RATIO 2235) SODIUM (test code = 2231) 140 MEQ/L POTASSIUM (test code = 2228) 4.7 MEQ/L CHLORIDE (test code = 2215) 104 MEQ/L CARBON DIOXIDE (test code = 25 MEQ/L 2205) CALCIUM (test code = 2209) 8.8 MG/DL PROTEIN, TOTAL (test code = 6.8 G/DL 2228) ALBUMIN (test code = 2201) 4.2 G/DL CALC GLOBULIN (test code = 2.6 G/DL 2240) CALC A/G RATIO (test code = 1.6 RATIO 2234) BILIRUBIN, TOTAL (test code = 0.4 MG/DL 2206) ALKALINE PHOSPHATASE (test 70 U/L code = 2204) AST (test code = 2218) 18 U/L ALT (test code = 2219) 25 U/L COMPREHENSIVE METABOLIC [id number] 00:00:00 Test Item Value Reference Range Interpretation Comments GLUCOSE (test code = 2217) 114 MG/DL BUN (test code = 2208) 21 MG/DL CREATININE (test code = 2214) 0.95 MG/DL eGFR AMER. (test code 99 ML/MIN/1.73 = 19375) eGFR NON- AMER. (test 85 ML/MIN/1.73 code = 55103) CALC BUN/CREAT (test code = 22 RATIO 2235) SODIUM (test code = 2231) 140 MEQ/L POTASSIUM (test code = 2228) 4.7 MEQ/L CHLORIDE (test code = 2215) 104 MEQ/L CARBON DIOXIDE (test code = 25 MEQ/L 2205) CALCIUM (test code = 2209) 8.8 MG/DL PROTEIN, TOTAL (test code = 6.8 G/DL 2228) ALBUMIN (test code = 2201) 4.2 G/DL CALC GLOBULIN (test code = 2.6 G/DL 2239) CALC A/G RATIO (test code = 1.6 RATIO 2233) BILIRUBIN, TOTAL (test code = 0.4 MG/DL 2206) ALKALINE PHOSPHATASE (test 70 U/L code = 2204) AST (test code = 2218) 18 U/L ALT (test code = 2219) 25 U/L LIPID [id number] 00:00:00 Test Item Value Reference Range Interpretation Comments CHOLESTEROL (test code = 2210) 230 MG/DL TRIGLYCERIDES (test code = 2232) 227 MG/DL HDL CHOLESTEROL (test code = 2220) 36 MG/DL CALC LDL CHOL (test code = 2237) 149 MG/DL RISK RATIO LDL/HDL (test code = 4.13 RATIO 2238) LIPID [id number] 00:00:00 Test Item Value Reference Range Interpretation Comments CHOLESTEROL (test code = 2210) 230 MG/DL TRIGLYCERIDES (test code = 2232) 227 MG/DL HDL CHOLESTEROL (test code = 2220) 36 MG/DL CALC LDL CHOL (test code = 2237) 149 MG/DL RISK RATIO LDL/HDL (test code = 4.13 RATIO 2238) HEMOGLOBIN [id number] 00:00:00 Test Item Value Reference Range Interpretation Comments HEMOGLOBIN A1c (test code = 93808) 5.8 % HEMOGLOBIN [id number] 00:00:00 Test Item Value Reference Range Interpretation Comments HEMOGLOBIN A1c (test code = 64407) 5.8 % HEMOGLOBIN [id number] 00:00:00 Test Item Value Reference Range Interpretation Comments HEMOGLOBIN A1c (test code = 73996) 5.8 % COMPREHENSIVE METABOLIC [id number] 00:00:00 Test Item Value Reference Range Interpretation Comments GLUCOSE (test code = 2217) 114 MG/DL BUN (test code = 2208) 21 MG/DL CREATININE (test code = 2214) 0.95 MG/DL eGFR AMER. (test code 99 ML/MIN/1.73 = 78884) eGFR NON- AMER. (test 85 ML/MIN/1.73 code = 00057) CALC BUN/CREAT (test code = 22 RATIO 2235) SODIUM (test code = 2231) 140 MEQ/L POTASSIUM (test code = 2228) 4.7 MEQ/L CHLORIDE (test code = 2215) 104 MEQ/L CARBON DIOXIDE (test code = 25 MEQ/L 2205) CALCIUM (test code = 2209) 8.8 MG/DL PROTEIN, TOTAL (test code = 6.8 G/DL 2228) ALBUMIN (test code = 2201) 4.2 G/DL CALC GLOBULIN (test code = 2.6 G/DL 2239) CALC A/G RATIO (test code = 1.6 RATIO 2234) BILIRUBIN, TOTAL (test code = 0.4 MG/DL 2206) ALKALINE PHOSPHATASE (test 70 U/L code = 2204) AST (test code = 2218) 18 U/L ALT (test code = 2219) 25 U/L LIPID [id number] 00:00:00 Test Item Value Reference Range Interpretation Comments CHOLESTEROL (test code = 2210) 230 MG/DL TRIGLYCERIDES (test code = 2232) 227 MG/DL HDL CHOLESTEROL (test code = 2220) 36 MG/DL CALC LDL CHOL (test code = 2237) 149 MG/DL RISK RATIO LDL/HDL (test code = 4.13 RATIO 2238) HEMOGLOBIN [id number] 00:00:00 Test Item Value Reference Range Interpretation Comments HEMOGLOBIN A1c (test code = 85201) 5.8 % HEMOGLOBIN [id number] 00:00:00 Test Item Value Reference Range Interpretation Comments HEMOGLOBIN A1c (test code = 00057) 5.8 % COMPREHENSIVE METABOLIC [id number] 00:00:00 Test Item Value Reference Range Interpretation Comments GLUCOSE (test code = 2217) 108 MG/DL BUN (test code = 2208) 13 MG/DL CREATININE (test code = 2214) 0.73 MG/DL eGFR AMER. (test code 115 ML/MIN/1.73 = 97959) eGFR NON- AMER. (test 99 ML/MIN/1.73 code = 17893) CALC BUN/CREAT (test code = 18 RATIO 2235) SODIUM (test code = 2231) 137 MEQ/L POTASSIUM (test code = 2228) 4.1 MEQ/L CHLORIDE (test code = 2215) 98 MEQ/L CARBON DIOXIDE (test code = 24 MEQ/L 2205) CALCIUM (test code = 2209) 9.0 MG/DL PROTEIN, TOTAL (test code = 6.4 G/DL 2228) ALBUMIN (test code = 2201) 3.9 G/DL CALC GLOBULIN (test code = 2.5 G/DL 2240) CALC A/G RATIO (test code = 1.6 RATIO 2234) BILIRUBIN, TOTAL (test code = 0.3 MG/DL 2206) ALKALINE PHOSPHATASE (test 71 U/L code = 2204) AST (test code = 2218) 21 U/L ALT (test code = 2219) 24 U/L COMPREHENSIVE METABOLIC [id number] 00:00:00 Test Item Value Reference Range Interpretation Comments GLUCOSE (test code = 2217) 108 MG/DL BUN (test code = 2208) 13 MG/DL CREATININE (test code = 2214) 0.73 MG/DL eGFR AMER. (test code 115 ML/MIN/1.73 = 99878) eGFR NON- AMER. (test 99 ML/MIN/1.73 code = 57874) CALC BUN/CREAT (test code = 18 RATIO 2235) SODIUM (test code = 2231) 137 MEQ/L POTASSIUM (test code = 2228) 4.1 MEQ/L CHLORIDE (test code = 2215) 98 MEQ/L CARBON DIOXIDE (test code = 24 MEQ/L 2205) CALCIUM (test code = 2209) 9.0 MG/DL PROTEIN, TOTAL (test code = 6.4 G/DL 2228) ALBUMIN (test code = 2201) 3.9 G/DL CALC GLOBULIN (test code = 2.5 G/DL 2240) CALC A/G RATIO (test code = 1.6 RATIO 2234) BILIRUBIN, TOTAL (test code = 0.3 MG/DL 2206) ALKALINE PHOSPHATASE (test 71 U/L code = 2204) AST (test code = 2218) 21 U/L ALT (test code = 2219) 24 U/L LIPID [id number] 00:00:00 Test Item Value Reference Range Interpretation Comments CHOLESTEROL (test code = 2210) 220 MG/DL TRIGLYCERIDES (test code = 2232) 184 MG/DL HDL CHOLESTEROL (test code = 2220) 36 MG/DL CALC LDL CHOL (test code = 2237) 147 MG/DL RISK RATIO LDL/HDL (test code = 4.09 RATIO 2238) LIPID [id number] 00:00:00 Test Item Value Reference Range Interpretation Comments CHOLESTEROL (test code = 2210) 220 MG/DL TRIGLYCERIDES (test code = 2232) 184 MG/DL HDL CHOLESTEROL (test code = 2220) 36 MG/DL CALC LDL CHOL (test code = 2237) 147 MG/DL RISK RATIO LDL/HDL (test code = 4.09 RATIO 2238) CBC W/AUTO [id number] 00:00:00 Test Item Value Reference Range Interpretation Comments WBC (test code = 1001) 6.9 K/UL RBC (test code = 1002) 4.70 M/UL HEMOGLOBIN (test code = 1003) 14.3 G/DL HEMATOCRIT (test code = 1004) 42.2 % MCV (test code = 1005) 89.8 fL MCH (test code = 1006) 30.4 PG MCHC (test code = 1007) 33.9 G/DL RDW (test code = 1038) 13.5 % NEUTROPHILS (test code = 1008) 65.3 % LYMPHOCYTES (test code = 1010) 24.7 % MONOCYTES (test code = 1011) 7.0 % EOSINOPHILS (test code = 1012) 2.6 % BASOPHILS (test code = 1013) 0.4 % PLATELET COUNT (test code = 1015) 180 K/UL CBC W/AUTO [id number] 00:00:00 Test Item Value Reference Range Interpretation Comments WBC (test code = 1001) 6.9 K/UL RBC (test code = 1002) 4.70 M/UL HEMOGLOBIN (test code = 1003) 14.3 G/DL HEMATOCRIT (test code = 1004) 42.2 % MCV (test code = 1005) 89.8 fL MCH (test code = 1006) 30.4 PG MCHC (test code = 1007) 33.9 G/DL RDW (test code = 1038) 13.5 % NEUTROPHILS (test code = 1008) 65.3 % LYMPHOCYTES (test code = 1010) 24.7 % MONOCYTES (test code = 1011) 7.0 % EOSINOPHILS (test code = 1012) 2.6 % BASOPHILS (test code = 1013) 0.4 % PLATELET COUNT (test code = 1015) 180 K/UL CBC W/AUTO [id number] 00:00:00 Test Item Value Reference Range Interpretation Comments WBC (test code = 1001) 6.9 K/UL RBC (test code = 1002) 4.70 M/UL HEMOGLOBIN (test code = 1003) 14.3 G/DL HEMATOCRIT (test code = 1004) 42.2 % MCV (test code = 1005) 89.8 fL MCH (test code = 1006) 30.4 PG MCHC (test code = 1007) 33.9 G/DL RDW (test code = 1038) 13.5 % NEUTROPHILS (test code = 1008) 65.3 % LYMPHOCYTES (test code = 1010) 24.7 % MONOCYTES (test code = 1011) 7.0 % EOSINOPHILS (test code = 1012) 2.6 % BASOPHILS (test code = 1013) 0.4 % PLATELET COUNT (test code = 1015) 180 K/UL HEMOGLOBIN [id number] 00:00:00 Test Item Value Reference Range Interpretation Comments HEMOGLOBIN A1c (test code = 43128) 5.7 % HEMOGLOBIN [id number] 00:00:00 Test Item Value Reference Range Interpretation Comments HEMOGLOBIN A1c (test code = 92317) 5.7 % HEMOGLOBIN [id number] 00:00:00 Test Item Value Reference Range Interpretation Comments HEMOGLOBIN A1c (test code = 16359) 5.7 % [id number] 00:00:00 Test Item Value Reference Range Interpretation Comments TSH (test code = 2821) 1.9 UIU/ML [id number] 00:00:00 Test Item Value Reference Range Interpretation Comments TSH (test code = 2821) 1.9 UIU/ML [id number] 00:00:00 Test Item Value Reference Range Interpretation Comments TSH (test code = 2821) 1.9 UIU/ML COMPREHENSIVE METABOLIC [id number] 00:00:00 Test Item Value Reference Range Interpretation Comments GLUCOSE (test code = 2217) 108 MG/DL BUN (test code = 2208) 13 MG/DL CREATININE (test code = 2214) 0.73 MG/DL eGFR AMER. (test code 115 ML/MIN/1.73 = 79786) eGFR NON- AMER. (test 99 ML/MIN/1.73 code = 96836) CALC BUN/CREAT (test code = 18 RATIO 2235) SODIUM (test code = 2231) 137 MEQ/L POTASSIUM (test code = 2228) 4.1 MEQ/L CHLORIDE (test code = 2215) 98 MEQ/L CARBON DIOXIDE (test code = 24 MEQ/L 220) CALCIUM (test code = 2209) 9.0 MG/DL PROTEIN, TOTAL (test code = 6.4 G/DL 2228) ALBUMIN (test code = 2201) 3.9 G/DL CALC GLOBULIN (test code = 2.5 G/DL 2240) CALC A/G RATIO (test code = 1.6 RATIO 2234) BILIRUBIN, TOTAL (test code = 0.3 MG/DL 2206) ALKALINE PHOSPHATASE (test 71 U/L code = 2204) AST (test code = 2218) 21 U/L ALT (test code = 2219) 24 U/L COMPREHENSIVE METABOLIC [id number] 00:00:00 Test Item Value Reference Range Interpretation Comments GLUCOSE (test code = 2217) 108 MG/DL BUN (test code = 2208) 13 MG/DL CREATININE (test code = 2214) 0.73 MG/DL eGFR AMER. (test code 115 ML/MIN/1.73 = 41146) eGFR NON- AMER. (test 99 ML/MIN/1.73 code = 07083) CALC BUN/CREAT (test code = 18 RATIO 2235) SODIUM (test code = 2231) 137 MEQ/L POTASSIUM (test code = 2228) 4.1 MEQ/L CHLORIDE (test code = 2215) 98 MEQ/L CARBON DIOXIDE (test code = 24 MEQ/L 220) CALCIUM (test code = 2209) 9.0 MG/DL PROTEIN, TOTAL (test code = 6.4 G/DL 2228) ALBUMIN (test code = 2201) 3.9 G/DL CALC GLOBULIN (test code = 2.5 G/DL 2240) CALC A/G RATIO (test code = 1.6 RATIO 2234) BILIRUBIN, TOTAL (test code = 0.3 MG/DL 2206) ALKALINE PHOSPHATASE (test 71 U/L code = 2204) AST (test code = 2218) 21 U/L ALT (test code = 2219) 24 U/L LIPID [id number] 00:00:00 Test Item Value Reference Range Interpretation Comments CHOLESTEROL (test code = 2210) 220 MG/DL TRIGLYCERIDES (test code = 2232) 184 MG/DL HDL CHOLESTEROL (test code = 2220) 36 MG/DL CALC LDL CHOL (test code = 2237) 147 MG/DL RISK RATIO LDL/HDL (test code = 4.09 RATIO 2238) LIPID [id number] 00:00:00 Test Item Value Reference Range Interpretation Comments CHOLESTEROL (test code = 2210) 220 MG/DL TRIGLYCERIDES (test code = 2232) 184 MG/DL HDL CHOLESTEROL (test code = 2220) 36 MG/DL CALC LDL CHOL (test code = 2237) 147 MG/DL RISK RATIO LDL/HDL (test code = 4.09 RATIO 2238) CBC W/AUTO [id number] 00:00:00 Test Item Value Reference Range Interpretation Comments WBC (test code = 1001) 6.9 K/UL RBC (test code = 1002) 4.70 M/UL HEMOGLOBIN (test code = 1003) 14.3 G/DL HEMATOCRIT (test code = 1004) 42.2 % MCV (test code = 1005) 89.8 fL MCH (test code = 1006) 30.4 PG MCHC (test code = 1007) 33.9 G/DL RDW (test code = 1038) 13.5 % NEUTROPHILS (test code = 1008) 65.3 % LYMPHOCYTES (test code = 1010) 24.7 % MONOCYTES (test code = 1011) 7.0 % EOSINOPHILS (test code = 1012) 2.6 % BASOPHILS (test code = 1013) 0.4 % PLATELET COUNT (test code = 1015) 180 K/UL CBC W/AUTO [id number] 00:00:00 Test Item Value Reference Range Interpretation Comments WBC (test code = 1001) 6.9 K/UL RBC (test code = 1002) 4.70 M/UL HEMOGLOBIN (test code = 1003) 14.3 G/DL HEMATOCRIT (test code = 1004) 42.2 % MCV (test code = 1005) 89.8 fL MCH (test code = 1006) 30.4 PG MCHC (test code = 1007) 33.9 G/DL RDW (test code = 1038) 13.5 % NEUTROPHILS (test code = 1008) 65.3 % LYMPHOCYTES (test code = 1010) 24.7 % MONOCYTES (test code = 1011) 7.0 % EOSINOPHILS (test code = 1012) 2.6 % BASOPHILS (test code = 1013) 0.4 % PLATELET COUNT (test code = 1015) 180 K/UL CBC W/AUTO [id number] 00:00:00 Test Item Value Reference Range Interpretation Comments WBC (test code = 1001) 6.9 K/UL RBC (test code = 1002) 4.70 M/UL HEMOGLOBIN (test code = 1003) 14.3 G/DL HEMATOCRIT (test code = 1004) 42.2 % MCV (test code = 1005) 89.8 fL MCH (test code = 1006) 30.4 PG MCHC (test code = 1007) 33.9 G/DL RDW (test code = 1038) 13.5 % NEUTROPHILS (test code = 1008) 65.3 % LYMPHOCYTES (test code = 1010) 24.7 % MONOCYTES (test code = 1011) 7.0 % EOSINOPHILS (test code = 1012) 2.6 % BASOPHILS (test code = 1013) 0.4 % PLATELET COUNT (test code = 1015) 180 K/UL HEMOGLOBIN [id number] 00:00:00 Test Item Value Reference Range Interpretation Comments HEMOGLOBIN A1c (test code = 30883) 5.7 % HEMOGLOBIN [id number] 00:00:00 Test Item Value Reference Range Interpretation Comments HEMOGLOBIN A1c (test code = 05870) 5.7 % HEMOGLOBIN [id number] 00:00:00 Test Item Value Reference Range Interpretation Comments HEMOGLOBIN A1c (test code = 75218) 5.7 % COMPREHENSIVE METABOLIC [id number] 00:00:00 Test Item Value Reference Range Interpretation Comments GLUCOSE (test code = 2217) 108 MG/DL BUN (test code = 2208) 13 MG/DL CREATININE (test code = 2214) 0.73 MG/DL eGFR AMER. (test code 115 ML/MIN/1.73 = 88461) eGFR NON- AMER. (test 99 ML/MIN/1.73 code = 17998) CALC BUN/CREAT (test code = 18 RATIO 2235) SODIUM (test code = 2231) 137 MEQ/L POTASSIUM (test code = 2228) 4.1 MEQ/L CHLORIDE (test code = 2215) 98 MEQ/L CARBON DIOXIDE (test code = 24 MEQ/L 2205) CALCIUM (test code = 2209) 9.0 MG/DL PROTEIN, TOTAL (test code = 6.4 G/DL 2228) ALBUMIN (test code = 2201) 3.9 G/DL CALC GLOBULIN (test code = 2.5 G/DL 2239) CALC A/G RATIO (test code = 1.6 RATIO 2233) BILIRUBIN, TOTAL (test code = 0.3 MG/DL 2206) ALKALINE PHOSPHATASE (test 71 U/L code = 220) AST (test code = 2218) 21 U/L ALT (test code = 2219) 24 U/L [id number] 00:00:00 Test Item Value Reference Range Interpretation Comments TSH (test code = 2821) 1.9 UIU/ML [id number] 00:00:00 Test Item Value Reference Range Interpretation Comments TSH (test code = 2821) 1.9 UIU/ML [id number] 00:00:00 Test Item Value Reference Range Interpretation Comments TSH (test code = 2821) 1.9 UIU/ML LIPID [id number] 00:00:00 Test Item Value Reference Range Interpretation Comments CHOLESTEROL (test code = 2210) 220 MG/DL TRIGLYCERIDES (test code = 2232) 184 MG/DL HDL CHOLESTEROL (test code = 2220) 36 MG/DL CALC LDL CHOL (test code = 2237) 147 MG/DL RISK RATIO LDL/HDL (test code = 4.09 RATIO 2238) CBC W/AUTO [id number] 00:00:00 Test Item Value Reference Range Interpretation Comments WBC (test code = 1001) 6.9 K/UL RBC (test code = 1002) 4.70 M/UL HEMOGLOBIN (test code = 1003) 14.3 G/DL HEMATOCRIT (test code = 1004) 42.2 % MCV (test code = 1005) 89.8 fL MCH (test code = 1006) 30.4 PG MCHC (test code = 1007) 33.9 G/DL RDW (test code = 1038) 13.5 % NEUTROPHILS (test code = 1008) 65.3 % LYMPHOCYTES (test code = 1010) 24.7 % MONOCYTES (test code = 1011) 7.0 % EOSINOPHILS (test code = 1012) 2.6 % BASOPHILS (test code = 1013) 0.4 % PLATELET COUNT (test code = 1015) 180 K/UL CBC W/AUTO [id number] 00:00:00 Test Item Value Reference Range Interpretation Comments WBC (test code = 1001) 6.9 K/UL RBC (test code = 1002) 4.70 M/UL HEMOGLOBIN (test code = 1003) 14.3 G/DL HEMATOCRIT (test code = 1004) 42.2 % MCV (test code = 1005) 89.8 fL MCH (test code = 1006) 30.4 PG MCHC (test code = 1007) 33.9 G/DL RDW (test code = 1038) 13.5 % NEUTROPHILS (test code = 1008) 65.3 % LYMPHOCYTES (test code = 1010) 24.7 % MONOCYTES (test code = 1011) 7.0 % EOSINOPHILS (test code = 1012) 2.6 % BASOPHILS (test code = 1013) 0.4 % PLATELET COUNT (test code = 1015) 180 K/UL HEMOGLOBIN [id number] 00:00:00 Test Item Value Reference Range Interpretation Comments HEMOGLOBIN A1c (test code = 61783) 5.7 % HEMOGLOBIN [id number] 00:00:00 Test Item Value Reference Range Interpretation Comments HEMOGLOBIN A1c (test code = 70923) 5.7 % [id number] 00:00:00 Test Item Value Reference Range Interpretation Comments TSH (test code = 2821) 1.9 UIU/ML [id number] 00:00:00 Test Item Value Reference Range Interpretation Comments TSH (test code = 2821) 1.9 UIU/ML [id number] 00:00:00 Test Item Value Reference Range Interpretation Comments TSH (test code = 2821) 3.9 UIU/ML COMPREHENSIVE METABOLIC [id number] 00:00:00 Test Item Value Reference Range Interpretation Comments GLUCOSE (test code = 2217) 94 MG/DL BUN (test code = 2208) 17 MG/DL CREATININE (test code = 2214) 0.82 MG/DL eGFR AMER. (test code 111 ML/MIN/1.73 = 25856) eGFR NON- AMER. (test 95 ML/MIN/1.73 code = 37541) CALCULATED BUN/CREAT (test 21 RATIO code = 2235) SODIUM (test code = 2231) 140 MEQ/L POTASSIUM (test code = 2228) 4.3 MEQ/L CHLORIDE (test code = 2215) 106 MEQ/L CARBON DIOXIDE (test code = 21 MEQ/L 220) CALCIUM (test code = 2209) 8.9 MG/DL PROTEIN, TOTAL (test code = 7.2 G/DL 2228) ALBUMIN (test code = 2201) 4.1 G/DL CALCULATED GLOBULIN (test 3.1 G/DL code = 2240) CALCULATED A/G RATIO (test 1.3 RATIO code = 2234) BILIRUBIN, TOTAL (test code = 0.4 MG/DL 2206) ALKALINE PHOSPHATASE (test 65 U/L code = 2204) SGOT (AST) (test code = 2218) 17 U/L SGPT (ALT) (test code = 2219) 19 U/L COMPREHENSIVE METABOLIC [id number] 00:00:00 Test Item Value Reference Range Interpretation Comments GLUCOSE (test code = 2217) 94 MG/DL BUN (test code = 2208) 17 MG/DL CREATININE (test code = 2214) 0.82 MG/DL eGFR AMER. (test code 111 ML/MIN/1.73 = 24136) eGFR NON- AMER. (test 95 ML/MIN/1.73 code = 20709) CALCULATED BUN/CREAT (test 21 RATIO code = 2235) SODIUM (test code = 2231) 140 MEQ/L POTASSIUM (test code = 2228) 4.3 MEQ/L CHLORIDE (test code = 2215) 106 MEQ/L CARBON DIOXIDE (test code = 21 MEQ/L 220) CALCIUM (test code = 2209) 8.9 MG/DL PROTEIN, TOTAL (test code = 7.2 G/DL 2228) ALBUMIN (test code = 2201) 4.1 G/DL CALCULATED GLOBULIN (test 3.1 G/DL code = 2240) CALCULATED A/G RATIO (test 1.3 RATIO code = 2234) BILIRUBIN, TOTAL (test code = 0.4 MG/DL 2207) ALKALINE PHOSPHATASE (test 65 U/L code = 2204) SGOT (AST) (test code = 2218) 17 U/L SGPT (ALT) (test code = 2219) 19 U/L LIPID [id number] 00:00:00 Test Item Value Reference Range Interpretation Comments CHOLESTEROL (test code = 2210) 231 MG/DL TRIGLYCERIDES (test code = 2232) 649 MG/DL HDL CHOLESTEROL (test code = 2220) 27 MG/DL CALCULATED LDL CHOL (test code = NOTE MG/DL 2237) LIPID [id number] 00:00:00 Test Item Value Reference Range Interpretation Comments CHOLESTEROL (test code = 2210) 231 MG/DL TRIGLYCERIDES (test code = 2232) 649 MG/DL HDL CHOLESTEROL (test code = 2220) 27 MG/DL CALCULATED LDL CHOL (test code = NOTE MG/DL 2237) CBC W/AUTO [id number] 00:00:00 Test Item Value Reference Range Interpretation Comments WBC (test code = 1001) 8.0 K/UL RBC (test code = 1002) 4.76 M/UL HEMOGLOBIN (test code = 1003) 13.8 G/DL HEMATOCRIT (test code = 1004) 41.9 % MCV (test code = 1005) 88.0 fL MCH (test code = 1006) 29.0 PG MCHC (test code = 1007) 32.9 G/DL RDW (test code = 1038) 14.1 % NEUTROPHILS (test code = 1008) 53 % LYMPHOCYTES (test code = 1010) 37 % MONOCYTES (test code = 1011) 6 % EOSINOPHILS (test code = 1012) 3 % BASOPHILS (test code = 1013) % PLATELET COUNT (test code = 1015) 181 K/UL CBC W/AUTO [id number] 00:00:00 Test Item Value Reference Range Interpretation Comments WBC (test code = 1001) 8.0 K/UL RBC (test code = 1002) 4.76 M/UL HEMOGLOBIN (test code = 1003) 13.8 G/DL HEMATOCRIT (test code = 1004) 41.9 % MCV (test code = 1005) 88.0 fL MCH (test code = 1006) 29.0 PG MCHC (test code = 1007) 32.9 G/DL RDW (test code = 1038) 14.1 % NEUTROPHILS (test code = 1008) 53 % LYMPHOCYTES (test code = 1010) 37 % MONOCYTES (test code = 1011) 6 % EOSINOPHILS (test code = 1012) 3 % BASOPHILS (test code = 1013) % PLATELET COUNT (test code = 1015) 181 K/UL CBC W/AUTO [id number] 00:00:00 Test Item Value Reference Range Interpretation Comments WBC (test code = 1001) 8.0 K/UL RBC (test code = 1002) 4.76 M/UL HEMOGLOBIN (test code = 1003) 13.8 G/DL HEMATOCRIT (test code = 1004) 41.9 % MCV (test code = 1005) 88.0 fL MCH (test code = 1006) 29.0 PG MCHC (test code = 1007) 32.9 G/DL RDW (test code = 1038) 14.1 % NEUTROPHILS (test code = 1008) 53 % LYMPHOCYTES (test code = 1010) 37 % MONOCYTES (test code = 1011) 6 % EOSINOPHILS (test code = 1012) 3 % BASOPHILS (test code = 1013) % PLATELET COUNT (test code = 1015) 181 K/UL HEMOGLOBIN [id number] 00:00:00 Test Item Value Reference Range Interpretation Comments HEMOGLOBIN A1c (test code = 14297) 6.2 % HEMOGLOBIN [id number] 00:00:00 Test Item Value Reference Range Interpretation Comments HEMOGLOBIN A1c (test code = 77556) 6.2 % HEMOGLOBIN [id number] 00:00:00 Test Item Value Reference Range Interpretation Comments HEMOGLOBIN A1c (test code = 87497) 6.2 % [id number] 00:00:00 Test Item Value Reference Range Interpretation Comments TSH (test code = 2821) 3.9 UIU/ML [id number] 00:00:00 Test Item Value Reference Range Interpretation Comments TSH (test code = 2821) 3.9 UIU/ML [id number] 00:00:00 Test Item Value Reference Range Interpretation Comments TSH (test code = 2821) 3.9 UIU/ML COMPREHENSIVE METABOLIC [id number] 00:00:00 Test Item Value Reference Range Interpretation Comments GLUCOSE (test code = 2217) 94 MG/DL BUN (test code = 2208) 17 MG/DL CREATININE (test code = 2214) 0.82 MG/DL eGFR AMER. (test code 111 ML/MIN/1.73 = 21563) eGFR NON- AMER. (test 95 ML/MIN/1.73 code = 26893) CALCULATED BUN/CREAT (test 21 RATIO code = 2235) SODIUM (test code = 2231) 140 MEQ/L POTASSIUM (test code = 2228) 4.3 MEQ/L CHLORIDE (test code = 2215) 106 MEQ/L CARBON DIOXIDE (test code = 21 MEQ/L 2206) CALCIUM (test code = 2209) 8.9 MG/DL PROTEIN, TOTAL (test code = 7.2 G/DL 2228) ALBUMIN (test code = 2201) 4.1 G/DL CALCULATED GLOBULIN (test 3.1 G/DL code = 2240) CALCULATED A/G RATIO (test 1.3 RATIO code = 2234) BILIRUBIN, TOTAL (test code = 0.4 MG/DL 2206) ALKALINE PHOSPHATASE (test 65 U/L code = 2204) SGOT (AST) (test code = 2218) 17 U/L SGPT (ALT) (test code = 2219) 19 U/L COMPREHENSIVE METABOLIC [id number] 00:00:00 Test Item Value Reference Range Interpretation Comments GLUCOSE (test code = 2217) 94 MG/DL BUN (test code = 2208) 17 MG/DL CREATININE (test code = 2214) 0.82 MG/DL eGFR AMER. (test code 111 ML/MIN/1.73 = 37827) eGFR NON- AMER. (test 95 ML/MIN/1.73 code = 76119) CALCULATED BUN/CREAT (test 21 RATIO code = 2235) SODIUM (test code = 2231) 140 MEQ/L POTASSIUM (test code = 2228) 4.3 MEQ/L CHLORIDE (test code = 2215) 106 MEQ/L CARBON DIOXIDE (test code = 21 MEQ/L 2206) CALCIUM (test code = 2209) 8.9 MG/DL PROTEIN, TOTAL (test code = 7.2 G/DL 2228) ALBUMIN (test code = 2201) 4.1 G/DL CALCULATED GLOBULIN (test 3.1 G/DL code = 2240) CALCULATED A/G RATIO (test 1.3 RATIO code = 2234) BILIRUBIN, TOTAL (test code = 0.4 MG/DL 2207) ALKALINE PHOSPHATASE (test 65 U/L code = 2204) SGOT (AST) (test code = 2218) 17 U/L SGPT (ALT) (test code = 2219) 19 U/L LIPID [id number] 00:00:00 Test Item Value Reference Range Interpretation Comments CHOLESTEROL (test code = 2210) 231 MG/DL TRIGLYCERIDES (test code = 2232) 649 MG/DL HDL CHOLESTEROL (test code = 2220) 27 MG/DL CALCULATED LDL CHOL (test code = NOTE MG/DL 2237) LIPID [id number] 00:00:00 Test Item Value Reference Range Interpretation Comments CHOLESTEROL (test code = 2210) 231 MG/DL TRIGLYCERIDES (test code = 2232) 649 MG/DL HDL CHOLESTEROL (test code = 2220) 27 MG/DL CALCULATED LDL CHOL (test code = NOTE MG/DL 2237) CBC W/AUTO [id number] 00:00:00 Test Item Value Reference Range Interpretation Comments WBC (test code = 1001) 8.0 K/UL RBC (test code = 1002) 4.76 M/UL HEMOGLOBIN (test code = 1003) 13.8 G/DL HEMATOCRIT (test code = 1004) 41.9 % MCV (test code = 1005) 88.0 fL MCH (test code = 1006) 29.0 PG MCHC (test code = 1007) 32.9 G/DL RDW (test code = 1038) 14.1 % NEUTROPHILS (test code = 1008) 53 % LYMPHOCYTES (test code = 1010) 37 % MONOCYTES (test code = 1011) 6 % EOSINOPHILS (test code = 1012) 3 % BASOPHILS (test code = 1013) % PLATELET COUNT (test code = 1015) 181 K/UL CBC W/AUTO [id number] 00:00:00 Test Item Value Reference Range Interpretation Comments WBC (test code = 1001) 8.0 K/UL RBC (test code = 1002) 4.76 M/UL HEMOGLOBIN (test code = 1003) 13.8 G/DL HEMATOCRIT (test code = 1004) 41.9 % MCV (test code = 1005) 88.0 fL MCH (test code = 1006) 29.0 PG MCHC (test code = 1007) 32.9 G/DL RDW (test code = 1038) 14.1 % NEUTROPHILS (test code = 1008) 53 % LYMPHOCYTES (test code = 1010) 37 % MONOCYTES (test code = 1011) 6 % EOSINOPHILS (test code = 1012) 3 % BASOPHILS (test code = 1013) % PLATELET COUNT (test code = 1015) 181 K/UL CBC W/AUTO [id number] 00:00:00 Test Item Value Reference Range Interpretation Comments WBC (test code = 1001) 8.0 K/UL RBC (test code = 1002) 4.76 M/UL HEMOGLOBIN (test code = 1003) 13.8 G/DL HEMATOCRIT (test code = 1004) 41.9 % MCV (test code = 1005) 88.0 fL MCH (test code = 1006) 29.0 PG MCHC (test code = 1007) 32.9 G/DL RDW (test code = 1038) 14.1 % NEUTROPHILS (test code = 1008) 53 % LYMPHOCYTES (test code = 1010) 37 % MONOCYTES (test code = 1011) 6 % EOSINOPHILS (test code = 1012) 3 % BASOPHILS (test code = 1013) % PLATELET COUNT (test code = 1015) 181 K/UL HEMOGLOBIN [id number] 00:00:00 Test Item Value Reference Range Interpretation Comments HEMOGLOBIN A1c (test code = 35472) 6.2 % HEMOGLOBIN [id number] 00:00:00 Test Item Value Reference Range Interpretation Comments HEMOGLOBIN A1c (test code = 41641) 6.2 % HEMOGLOBIN [id number] 00:00:00 Test Item Value Reference Range Interpretation Comments HEMOGLOBIN A1c (test code = 30903) 6.2 % [id number] 00:00:00 Test Item Value Reference Range Interpretation Comments TSH (test code = 2821) 3.9 UIU/ML [id number] 00:00:00 Test Item Value Reference Range Interpretation Comments TSH (test code = 2821) 3.9 UIU/ML [id number] 00:00:00 Test Item Value Reference Range Interpretation Comments TSH (test code = 2821) 3.9 UIU/ML COMPREHENSIVE METABOLIC [id number] 00:00:00 Test Item Value Reference Range Interpretation Comments GLUCOSE (test code = 2217) 94 MG/DL BUN (test code = 2208) 17 MG/DL CREATININE (test code = 2214) 0.82 MG/DL eGFR AMER. (test code 111 ML/MIN/1.73 = 47952) eGFR NON- AMER. (test 95 ML/MIN/1.73 code = 53769) CALCULATED BUN/CREAT (test 21 RATIO code = 2235) SODIUM (test code = 2231) 140 MEQ/L POTASSIUM (test code = 2228) 4.3 MEQ/L CHLORIDE (test code = 2215) 106 MEQ/L CARBON DIOXIDE (test code = 21 MEQ/L 2205) CALCIUM (test code = 2209) 8.9 MG/DL PROTEIN, TOTAL (test code = 7.2 G/DL 2228) ALBUMIN (test code = 2201) 4.1 G/DL CALCULATED GLOBULIN (test 3.1 G/DL code = 2240) CALCULATED A/G RATIO (test 1.3 RATIO code = 2234) BILIRUBIN, TOTAL (test code = 0.4 MG/DL 2206) ALKALINE PHOSPHATASE (test 65 U/L code = 2204) SGOT (AST) (test code = 2218) 17 U/L SGPT (ALT) (test code = 2219) 19 U/L LIPID [id number] 00:00:00 Test Item Value Reference Range Interpretation Comments CHOLESTEROL (test code = 2210) 231 MG/DL TRIGLYCERIDES (test code = 2232) 649 MG/DL HDL CHOLESTEROL (test code = 2220) 27 MG/DL CALCULATED LDL CHOL (test code = NOTE MG/DL 2236) CBC W/AUTO [id number] 00:00:00 Test Item Value Reference Range Interpretation Comments WBC (test code = 1001) 8.0 K/UL RBC (test code = 1002) 4.76 M/UL HEMOGLOBIN (test code = 1003) 13.8 G/DL HEMATOCRIT (test code = 1004) 41.9 % MCV (test code = 1005) 88.0 fL MCH (test code = 1006) 29.0 PG MCHC (test code = 1007) 32.9 G/DL RDW (test code = 1038) 14.1 % NEUTROPHILS (test code = 1008) 53 % LYMPHOCYTES (test code = 1010) 37 % MONOCYTES (test code = 1011) 6 % EOSINOPHILS (test code = 1012) 3 % BASOPHILS (test code = 1013) % PLATELET COUNT (test code = 1015) 181 K/UL CBC W/AUTO [id number] 00:00:00 Test Item Value Reference Range Interpretation Comments WBC (test code = 1001) 8.0 K/UL RBC (test code = 1002) 4.76 M/UL HEMOGLOBIN (test code = 1003) 13.8 G/DL HEMATOCRIT (test code = 1004) 41.9 % MCV (test code = 1005) 88.0 fL MCH (test code = 1006) 29.0 PG MCHC (test code = 1007) 32.9 G/DL RDW (test code = 1038) 14.1 % NEUTROPHILS (test code = 1008) 53 % LYMPHOCYTES (test code = 1010) 37 % MONOCYTES (test code = 1011) 6 % EOSINOPHILS (test code = 1012) 3 % BASOPHILS (test code = 1013) % PLATELET COUNT (test code = 1015) 181 K/UL HEMOGLOBIN [id number] 00:00:00 Test Item Value Reference Range Interpretation Comments HEMOGLOBIN A1c (test code = 75829) 6.2 % HEMOGLOBIN [id number] 00:00:00 Test Item Value Reference Range Interpretation Comments HEMOGLOBIN A1c (test code = 48819) 6.2 % [id number] 00:00:00 Test Item Value Reference Range Interpretation Comments TSH (test code = 2821) 3.9 UIU/ML
[2022-02-20 12:33] VITALS: BMI 40.2
--- NOTE | 2022-02-20 12:42 | RAD REPORT ---
EXAM DESCRIPTION: RAD - Knee Left 2 View - 02/20/2022 11:59 am CLINICAL HISTORY: Post Op COMPARISON: Knee Left 3 View dated 09/04/2021 FINDINGS: Left total knee arthroplasty is noted. No unexpected immediate postoperative finding. Skin jolene are noted anteriorly. Soft tissue edema and swelling is present.
[2022-02-20] MEDS: CEFAZOLIN SODIUM 2 GM in NA CHLORIDE 0.9% 100 ML IVPB SCH (16:51)
--- NOTE | 2022-02-20 17:08 | P.OP ---
Preoperative diagnosis: left knee osteoarthritis Postoperative diagnosis: same Primary procedure: left total knee arthroplasty Anesthesia: general Estimated blood loss: 50 cc Specimen: left knee bone remnants Findings: see dictation Operative Technique: Indication For Procedure: Obie is a 66 year-old male presenting to my clinic with signs, symptoms and x-ray findings consistent with severe left knee osteoarthritis. I discussed with the patient at length risks and benefits associated with operative and nonoperative treatment. He had failed conservative treatment measures and had significant difficulties with ADLs secondary to his pain. We discussed operative treatment and elected to proceed with left total knee arthroplasty. He expressed understanding and elected to proceed with operative treatment. Description Of Procedure: After informed consent was obtained, the patient was identified in the preoperative holding area. The left lower extremity was ma rked. The patient was then taken to the PACU where he underwent a left lower extremity adductor canal block performed by Anesthesia. He was then taken to the operating room, transferred to the operating table in supine fashion, and placed under general anesthesia. The left lower extremity was then prepped and draped in usual sterile fashion. A time-out was initiated. The correct patient and procedure were confirmed and identified. The patient did receive his preoperative prophylactic antibiotics. The left lower extremity was then exsanguinated and tourniquet was inflated to 300 mmHg. Approximately 15 cm longitudinal incision was made centered over the anterior aspect of the left knee. Dissection was then taken to the extensor mechanism and a medial parapatellar arthrotomy was performed. The patella was everted and dislocated laterally and the knee was flexed in the fat pad. Medial lateral meniscus and ACL were all excised exposing the distal femur. Excess hypertrophic synovium was also excised within the suprapatellar pouch. The patient had an MRI of his left knee preoperatively for surgical planning and creation of cutting blocks. The cutting block was then placed over the distal femur and pins were then placed. The distal femoral cutting block was then placed over the pins. An tylor wing was then used to ensure proper depth cut and the distal femur was then cut. The chamfer cutting guide was then placed over the distal end of the femur. Anterior, posterior cuts as well as anterior and posterior chamfer cuts were then made again confirming proper depth of the cut using an Tylor wing. Excess bone remnants were then sent to pathology for further evaluation. Next, attention was taken to the proximal tibia. A tibial jig and tibial cutting block was then placed on proximal aspect of the left tibia and locked into position. Pins were then placed and alignment guide was then used to confirm proper alignment of the cut and then coronal and sagittal planes. Once this was confirmed, the cutting jig was placed over the pins and the proximal tibia was cut. Sizing trays were then selected and size 10 mm spacer was used and there was good overall balance in flexion and extension. Next, the trial implants were then placed using the size 10 standard CR femur and a size G tibia with an 10 mm CR poly. There was overall good range of motion and good stability. The trial implants were then removed. This improved the overall stability of the knee and components. The wound was then irrigated thoroughly with normal saline and the knee was then injected with 30 cc of 0.5% Marcaine both in the posterior capsule and medial and lateral gutters as well as quadriceps tendon and periosteum. The tibia was then punched. The femur was drilled. The cement was then prepared on the back table. Cement was then placed first on the tibial surface followed by size G tibia with a stem given his elevated BMI. Excess cement was removed with [place] elevators. Size 10 standard CR femur was then placed on the distal femur after cement was placed on the distal femur. Excess cement was then removed and a size 10 mm CR trial poly was then placed. The k nee was held in extension as the cement hardened. Undersurface of the patella was prepared debriding osteophytes using rongeurs as well as osteophytes.. Cement was placed on the undersurface of the patella after it was cut and a size 35 patella was placed. Once the cement was hardened, the knee was ranged, there was good overall stability both in flexion, extension and as well as stability with varus and valgus stresses. Trial poly was then removed and a size 10 mm CR poly was then placed and locked into position. The knee was then ranged again. There was good overall range of motion both for flexion and extension with good stability. The wound was then irrigated again thoroughly with normal saline using pulse lavage. Tourniquet was let down. Hemostasis was achieved using Bovie electrocautery. Extensor mechanism was then approximated using a #1 Vicryl both in interrupted and running fashion. The fascia was then approximated using 0 Vicryl. Subcutaneous tissue was approximated with a 2-0 Vicryl. Skin was approximated using jolene. Sterile dressings were applied. The patient was awakened and transferred back in stable condition Complications: None Implants: Bi[employer] Samm Persona 10 CR femur, G tibia w/ stem, 10 CR poly, 35 patella Fluids & blood products: per anesthesia record; TT: 93 mins @ 300 mmHg Transferred to: Recovery Room Condition: Good
[2022-02-20 23:47] VITALS: O2SAT 97
[2022-02-20] MEDS: HYDROCODONE/APAP 7.5/325 MG TAB PO PRN (23:48)
[2022-02-21] MEDS: CEFAZOLIN SODIUM 2 GM in NA CHLORIDE 0.9% 100 ML IVPB SCH ×2 (00:31→10:06)
[2022-02-21 03:54] LABS: Hematocrit 40.3 % (39.6-49.0)
[2022-02-21] MEDS: HYDROCODONE/APAP 7.5/325 MG TAB PO PRN ×2 (05:24→10:07)
[2022-02-21] MEDS ORDERED: ENOXAPARIN 30 MG/0.3 ML SQ SCH (06:00)
[2022-02-21] MEDS ORDERED: CELECOXIB 100 MG CAPSULE PO SCH (09:00)
[2022-02-21] MEDS ORDERED: hydroCHLOROthiazide 12.5 MG CAP PO SCH (09:00)
[2022-02-21] MEDS ORDERED: lisinopriL 20 MG TAB PO SCH (09:00)
[2022-02-21] MEDS ORDERED: FINASTERIDE 5 MG TAB PO SCH (09:00)
[2022-02-21] MEDS ORDERED: TAMSULOSIN 0.4 MG SR CAP PO SCH (09:00)
[2022-02-21 12:15] VITALS: BP 149/69; TEMP 97.2
--- NOTE | 2022-02-21 12:27 | P.DS ---
Admission Date: 02/20/22 Discharge Date: 02/21/22 Disposition: DC HOME/HOME HEALTH CARE Discharge Condition: GOOD Reason for Admission: L TKA Consultations: none Procedures: L TKA 02/20/2022 Brief History of Present Illness: Patient is a 66-year-old male who underwent left total knee arthroplasty on February 20, 2022 without complication. He was admitted to floor in stable cond ition. Hospital Course: Patient was admitted to floor postoperatively in stable condition. Physical therapy was consulted and mobilized with the patient safely. Patient started on Lovenox while in the hospital and was discharged on Xarelto. He may be weightbearing as tolerated on the left lower extremity. He was discharged in stable condition on February 21, 2022. Vital Signs/Physical Exam: Temp Pulse Resp BP Pulse Ox 97.2 F 67 14 149/69 H 96 02/21/22 12:00 02/21/22 12:00 02/21/22 12:00 02/21/22 12:00 02/21/22 12:00 Laboratory Data at Discharge: WBC 7.00 K/uL (4.3-10.9) 02/11/22 11:19 Hgb 13.3 g/dL (13.6-17.9) L 02/21/22 03:21 Hct 40.3 % (39.6-49.0) 02/21/22 03:21 Plt Count 157 K/uL (152-406) 02/11/22 11:19 PT 10.1 SECONDS (9.5-12.5) 02/11/22 11:19 INR 0.92 02/11/22 11:19 APTT 33.9 SECONDS (24.3-36.9) 02/11/22 11:19 Sodium 140 mmol/L (136-145) 02/11/22 11:19 Potassium 3.8 mmol/L (3.5-5.1) 02/11/22 11:19 BUN 11 mg/dL (7-18) 02/11/22 11:19 Creatinine 0.88 mg/dL (0.55-1.3) 02/11/22 11:19 Glucose 114 mg/dL (74-106) H 02/11/22 11:19 Home Medications: Lisinopril/Hydrochlorothiazide [Lisinopril-Hctz 20-12.5 mg Tab] 1 each PO DAILY 07/14/20 Tamsulosin [Flomax*] 0.4 mg PO DAILY 07/14/20 Finasteride [Proscar*] 5 mg PO DAILY 02/11/22 Hydrocodone 7.5/APAP 325 [[place] 7.5/325 mg*] 1 tab PO Q4H PRN tab 02/21/22 Physician Discharge Instructions: keep dressing c/d/i; keep BLE SHILOH hose x 2 weeks to aid with swelling. begin Xarelto tomorrow 02/22/2022 with breakfast and take once daily Diet: Regular Activity: Weight bearing as tolerated Followup: Alex Ramon MD [ACTIVE - CAN ADMIT] - 1-2 Weeks
== END 2022-02-21 13:31 | disposition home health service (06) ==
LOC: OR 05:50 → 2ND 11:30
PROVIDERS: ADMIT Orthopaedic Surgery Sports Medicine; ATTEND Orthopaedic Surgery Sports Medicine
PROC: 0SRD069 Replacement of Left Knee Joint with Oxidized Zirconium on Polyethylene Synthetic Substitute, Cemented, Open Approach (ICD-10-PCS; principal; 2022-02-20 08:00)
DX: M17.12 Unilateral primary osteoarthritis, left knee (principal); M17.11 Unilateral primary osteoarthritis, right knee; I10 Essential (primary) hypertension; N28.9 Disorder of kidney and ureter, unspecified; Z20.822 Contact with and (suspected) exposure to COVID-19
CPT/HCPCS: 93005; 85025; 80048; 36415 ×3; 85610; 88304; 88311; 85730; 85018 ×2; 85014 ×2; 71046; 73560; 97110 ×2; 97116 ×2; 97139; 97161; 97530; 94010; 87811; 27447; J2704; J0171; J2001 ×2; J1650; J2250; J3010; J1100 ×2; J1170; J7120 ×2; J2405; G0379; G0378 ×2

== ENCOUNTER 2024-07-28 05:50 | Day surgery (SDC) | payer OTHER ==
[2024-07-27 16:09] LABS: Absolute Eosinophils 0.2 K/uL (0-0.5); Absolute Lymphocytes (CBC) 2.2 K/uL (0.7-4.9); Absolute Monocytes 0.6 K/uL (0.1-1.3); Basophils % 0.4 % (0-1.3); Eosinophils % 2.2 % (0-4.4); Hematocrit 46.4 % (39.6-49.0); Hemoglobin 15.6 g/dL (13.6-17.9); Lymphocytes % 21.9 % (15.3-44.8); MCH 29.4 pg (27.0-35.0); MCHC 33.7 g/dL (32.0-36.0); MPV 9.8 fL (7.6-11.3); Monocytes % 5.8 % (3.3-12.3); Neutrophils % 69.7 % (41.7-73.7); Nucleated Red Blood Cells % 0.1 % (0-0); Platelets 173 thou/uL (152-406); RBC Red Blood Cell Count 5.33 M/uL (4.33-5.43); Red Cell Distribution Width 14.7 % (12.1-15.2)
[2024-07-27 16:23] LABS: Anion Gap 6.6 mEq/L (5.0-15.0); Potassium 4.6 mEq/L (3.5-5.1)
--- NOTE | 2024-07-27 23:48 | RAD REPORT ---
EXAMINATION: TWO VIEW CHEST XR CLINICAL INDICATION: Male, 68 years old. [facility] Pre-op pending mass removal neck. Hypertension TECHNIQUE: 2 view radiographs of the chest were performed. COMPARISON: 07/27/2024 FINDINGS: The lungs are well inflated and clear. No pneumothorax or sizable effusion. The heart is normal in si ze. Mediastinal contours are unremarkable. IMPRESSION: No acute or significant abnormalities.
[2024-07-28] MEDS: Ringers Lactate 1,000 ML IV ONE (06:10)
[2024-07-28] MEDS ORDERED: LIDOCAINE 2% MPF 5 ML VIAL ONE (07:22)
[2024-07-28] MEDS ORDERED: propofoL 200 MG/20 ML VIAL IV ONE (07:22)
[2024-07-28] MEDS ORDERED: FENTANYL CITR 100 MCG/2 ML ONE (07:22)
[2024-07-28] MEDS ORDERED: ONDANSETRON 4 MG/2 ML VIAL ONE (07:22)
[2024-07-28] MEDS: CEFAZOLIN SODIUM 1 GM/VIAL ONE (07:56)
[2024-07-28] MEDS ORDERED: dexAMETHasone 10 MG/ML VIAL ONE (07:58)
--- NOTE | 2024-07-28 08:23 | P.BOP ---
Preoperative diagnosis: Right neck tender subQ mass Postoperative diagnosis: same Primary procedure: Excisional biopsy of Right neck tender subQ mass 3x3cm Estimated blood loss: <10cc Specimen: mass Findings: mass Anesthesia: General Complications: None Transferred to: Recovery Room Condition: Good
[2024-07-28 08:50] VITALS: O2SAT 97
[2024-07-28 09:01] VITALS: TEMP 97.1
[2024-07-28 09:16] VITALS: BP 139/80
[2024-07-28] MEDS: CODEINE 30MG/APAP 300MG TAB ONE (09:28)
--- NOTE | 2024-08-03 12:47 | EKG ---
Test Date: 2024-07-27 Test Time: 15:53:26 [employer]: [employer] MEASUREMENT RESULTS: Intervals: Rate: 65 DE: 190 QRSD: 152 QT: 428 QTc: 445 [place]: P: 75 DE: 190 QRS: 100 T: 56 INTERPRETIVE STATEMENTS: Normal sinus rhythm Right bundle branch block Abnormal ECG Compared to ECG 02/11/2022 11:12:23 No significant changes Electronically Signed On 08-03-24 12:32:18 CDT by Sher Rojas
== END 2024-07-28 09:50 | disposition home or self-care (01) ==
LOC: OR 05:50
PROVIDERS: ATTEND Surgery
PROC: 0JB40ZZ Excision of Right Neck Subcutaneous Tissue and Fascia, Open Approach (ICD-10-PCS; principal; 2024-07-28 07:30)
DX: L72.0 Epidermal cyst (principal)
CPT/HCPCS: 93005; 85025; 80048; 36415; 88304; 71046; 11424; J2704; J2003; J3010; J1100; J2405; J7120; J0690